=== PATIENT | male | born 1995 | race Caucasian/White ===

== ENCOUNTER 2020-04-21 10:07 | Outpatient (REF) | payer MEDICAID, SELFPAY | END 2020-04-21 10:08 | disposition home or self-care (01) | LOC: HO.LAB 10:07 | PROVIDERS: Visit Provider Internal Medicine | DX: Z20.828 Contact with and (suspected) exposure to other viral communicable diseases (principal) | CPT/HCPCS: 36415; C9803; U0003 ==

== ENCOUNTER → 2020-04-26 10:56 | Outpatient (BNVA) | payer MEDICAID, SELFPAY | PROVIDERS: PCP Internal Medicine; Visit Provider Internal Medicine Cardiovascular Disease | DX: I35.1 Nonrheumatic aortic (valve) insufficiency (principal); Q85.00 Neurofibromatosis, unspecified | CPT/HCPCS: 99212 ==

== ENCOUNTER → 2020-05-25 09:25 | Outpatient (REF) | payer MEDICAID, SELFPAY ==
--- NOTE | 2020-05-25 09:28 | CA_ITS ---
Transthoracic Echocardiogram Patient (Last, First, Middle): Arsh Mulligan, Gender: Male Date of : 1995 Age: 24 Procedure Date: 05/25/2020 Procedure Type: Transthoracic Echocardiogram Location: OP Height: 160.02 cm Weight: 72.58 kg BSA: 1.76 m2 Heart Rate: bpm BP: 130 / 76 mmHg Sharepoint Architect: TRAVIS Pakr MD: Jorge Cuellar MD Symptoms: I35.1 - Nonrheumatic aortic (valve) insufficiency Study Quality: Good ECG Rhythm: Sinus Conclusions: - The left ventricular systolic function is normal. The visually estimated ejection fraction is between 60-65%. - No obvious valvular pathology seen on this study. Findings Left Ventricle Normal left ventricular cavity size. There is normal left ventricular wall thickness. The left ventricular systolic function is normal. The visually estimated ejection fraction is between 60-65%. There is no evidence of regional wall motion abnormalities. Diastolic function is normal for age. Right Ventricle Normal right ventricular cavity size and systolic function. Atria The left atrium is normal in size. The right atrium is normal in size. Aortic Valve There is a normal trileaflet aortic valve. There is no aortic valve stenosis. There is no aortic valve regurgitation. Mitral Valve The mitral valve appears normal. There is no mitral valve regurgitation. There is no mitral valve stenosis. Pulmonic Valve The pulmonic valve was not well visualized. Tricuspid Valve Normal tricuspid valve structure. There is trace tricuspid valve regurgitation. The pulmonary artery systolic pressure is normal. Great Vessels The aortic annulus, sinuses of valsalva, asc aorta, and aortic arch are normal in size. Venous The inferior vena cava is normal in size and collapses greater than 50% with inspiration. Pericardium/Pleural There is no evidence of pericardial effusion. Prior Study Comparison No prior study available for comparison. Recommendations, Care & Conclusions No obvious valvular patholghogy seen on this study. Measurements M-Mode Liner Measurements Normals - Women/Men AOV Cusps: 2.30 1.5-2.6 cm/m2 2D Linear Measurements IVSd: 0.86 0.6-0.9/0.6-1.0 cm LVIDd: 3.42 3.9-5.3/4.2-5.9 cm LVIDd Index: 1.94 2.4-3.2/2.2-3.1 cm/m2 LVIDs: 1.73 2.0-3.6 cm LVPWd: 0.98 0.7-1.1 cm Ao Root: 2.50 2.1-3.5 cm LA Diam: 3.10 2.7-3.8/3.0-4.0 cm LAIDs Index: 1.76 1.5-2.3 cm/m2 LV Mass: 109.58 67-162/88-224 g LV Mass Index: 62.26 43-95/49-115 g/m2 LVOT Diam: 1.90 3.0+(-)1.3 cm 2D Systolic Function EF 4C: 70.10 >55% EF 2C: 36.30 >55% EF BiP: 57.00 >55% Mitral Valve MV Pk E: 0.84 MV PK A: 0.67 MV Decel Time: 169.00 E/A: 1.30 E'Lateral: 12.30 E'Medial: 8.59 E/E' Med: 9.80 E/E' Lat: 6.90 PHT: 50.00 MVA PHT: 4.40 Decel Douglas: 4.99 Aortic Valve AoV Pk Jeff: 1.79 AoV Pk Grad: 13.00 LVOT LVOT Pk Jeff: 1.13 LVOT Mn Jeff: 0.83 LVOT VTI: 0.27 LVOT Pk Grad: 5.00 LVOT Mn Grad: 3.00 LVOT Diam: 1.90 LVOT Area: 2.84 Diastolic Function MV Pk E: 0.84 MV Pk A: 0.67 E/A: 1.30 E'Medial: 8.59 E/E' Med: 9.80 E' Laterial: 12.30 E/E' Lat: 6.90 Tricuspid Valve TR Pk Jeff: 2.66 TR Pk Grad: 28.00 RA Press: 3.00 RVSP: 31.00 Great Vessels Aorta Ao Root-2D: 2.50 2.0-3.7 cm Ao Asc: 2.10 2.1-3.4 cm Ao Arch: 2.50 Pulmonary Valve PV Pk Jeff: 1.82 Peak PV Grad: 13.00 Updated in Other Vendor System with Status of Final Uriah Núñez MD electronically signed on 05/25/2020 2:12:38 PM with status of Final
== END ==
LOC: HO.CARD 09:25
PROVIDERS: PCP Internal Medicine; Visit Provider Internal Medicine Cardiovascular Disease
DX: I35.1 Nonrheumatic aortic (valve) insufficiency (principal)
CPT/HCPCS: 93306

== ENCOUNTER 2020-07-30 12:34 | Emergency (ER) | payer MEDICAID, SELFPAY ==
[2020-07-30 12:40] VITALS: BP 118/59; PULSE 66; RESP 18; TEMP 37.2; O2SAT 99; BMI 29.5
--- NOTE | 2020-07-30 13:49 | ED.GENADULT ---
HPI - General Adult General Chief complaint: General Medical Stated complaint: abscess Time Seen by Provider: 07/30/20 13:47 Source: patient, family (mom) and director of business applications Mode of arrival: ambulatory Limitations: no limitations and language barrier History of Present Illness HPI narrative: 24 yo male with past medical hisotry of neurofibromatosis, migraines, hypertension, ADHD, aortic unsufficinecy here with mom with complaints of left buttocks warmth, erythema and bruising. Denies injury or trauma. Mom tells me she noticed this yesterday. No fevers, chills. Normal behavior from patient per mom. Related Data Home Medications Medication Instructions Recorded Confirmed guanfacine 1 mg tablet 1 mg PO BEDTIME 04/26/20 04/26/20 lisinopril 20 mg tablet 20 mg PO DAILY 04/26/20 04/26/20 nortriptyline 10 mg capsule 10 mg PO DAILY 04/26/20 04/26/20 Previous Rx's Medication Instructions Recorded acetaminophen [Tylenol] 650 mg PO Q6H PRN #20 tab 07/30/20 doxycycline monohydrate 100 mg PO BID #14 tab 07/30/20 Allergies Allergy/AdvReac Type Severity Reaction Status Date / Time No Known Drug Intolerances Allergy Unknown NONE Unverified 01/01/20 17:07 Review of Systems Review of Systems: Yes all other systems are reviewed and are negative Constitutional: Constitutional: Reports no additional constitutional complaints, Denies body ache(s), Denies chills, Denies fever(s), Denies headache(s) and Denies weakness Eyes: Eyes: Reports no additional eye complaints and Denies change in vision ENT: Reports system reviewed and no additional complaints, except as documented, Denies dizziness, Denies headache(s), Denies nasal congestion, Denies nasal discharge and Denies neck pain Cardiovascular: Cardiovascular: Reports no additional cardiovascular complaints, Denies chest pain, Denies leg edema and Denies dyspnea Respiratory: Respiratory: Reports no additional respiratory complaints, Denies cough and Denies dyspnea Gastrointestinal: Gastrointestinal: Reports no additional gastrointestinal complaints, Denies abdominal pain, Denies diarrhea, Denies nausea and Denies vomiting Genitourinary: Genitourinary: Denies urinary incontinence Musculoskeletal: Musculoskeletal: Reports no additional musculoskeletal complaints, Denies back pain, Denies arthralgias, Denies joint swelling, Denies neck pain, Denies numbness and Denies tingling Integumentary/Breasts: Skin/Breast: Reports system reviewed and no additional complaints, except as docu, Reports swelling, Reports erythema and Denies rash Neurologic: Reports system reviewed and no additional complaints, except as documented, Denies Abnormal speech present, Denies dizziness, Denies headache(s), Denies numbness, Denies tingling and Denies weakness PMFSH Past Medical History Attestation statement: The following information was validated with the patient. Source: old records reviewed and nursing notes reviewed Medical History (Updated 07/30/20 @ 14:03 by Lela Nash NP) ADHD Hypertension Migraines Family History Family History Maternal Grandmother Hypertension Diabetes Mother Breast cancer Intellectual disability Social History Social History Smoking Status: Never smoker Advance Directives: Yes Advance Directives Information Provided: Yes Advance Directives on File: No Physical Exam Vital Signs: Vital Signs: Last Vital Signs Temp 98.9 F 07/30/20 12:40 Pulse 66 07/30/20 12:40 Resp 18 07/30/20 12:40 BP 118/59 L 07/30/20 12:40 Pulse Ox 99 07/30/20 12:40 Body Mass Index 29.5 Const: General: cooperative, healthy appearing, comfortable and no acute distress Limitations: no limitations HENMT: Head: Yes normal to inspection Ears: hearing grossly normal bilaterally General nose exam: Normal external nose present Face and sinus: Yes normal facial exam Mouth: Normal oral and palatal mucosa present Throat: Yes posterior oropharynx normal Eyes: General: appearance normal, both eyes and all related structures Pupils: Equal, round and reactive pupils present Neck: Neck: Yes normal visual inspection Chest: Chest palpation & inspection: normal inspection of the chest Resp: Effort & Inspection: normal respiratory effort Auscultation: clear to auscultation bilaterally Cardio: Rate: regular rate Rhythm: regular rhythm Peripheral pulses: Peripheral pulses 2+ throughout GI: Inspection: Yes normal to inspection Palpation (GI): Soft to palpation and nontender Auscultation: normal bowel sounds Back/Spine/Pelvis: Thoracic/Lumbar Spine: thoracic and lumbar spine normal to inspection Skin: Other: To the left buttocks there is a circular area of warmth/redness and swelling with mild eechymosis. No fluctuance or induration. NF sites noted across back and buttocks General skin exam: no rashes or lesions noted Neuro: General: moves all extremities and normal sensation to monofilament Cranial nerves: Yes Equal, round and reactive pupils present Speech: No Abnormal speech present Gait exam (Neuro): Normal gait present Extrem: General: Yes normal to inspection Course Course Course Narrative: 24 yo male here with mom who provides most of the history for the patient here with left buttocks warmth, swelling, erythema x 24 hrs. No fevers, chills. No fluctuance or induration. ?contusion however denies injury but limited historian. Mom is a good historian however and denies. ?early cellulitis, there is a local area but nothing drainable. Will start on course of antibiotics and have mom do supportive care at home including warm compresses. Reviewed worrisome signs.symptoms with patient and when to return to Ed. Comfortable with discharge home. Discharge Plan Discharge Clinical Impression: Abscess Patient Disposition: Home, Self-Care Instructions: Abscess (ED) Additional Instructions: Monitor temperature daily and seek care for fever >100.4F, vomiting 2 or more episodes, increasing swelling or redness Prescriptions: New doxycycline monohydrate 100 mg tablet 100 mg PO BID Qty: 14 RF: 0 acetaminophen [Tylenol] 325 mg tablet 650 mg PO Q6H PRN (Reason: fever or pain) Qty: 20 RF: 0 No Action guanfacine 1 mg tablet 1 mg PO BEDTIME RF: 0 nortriptyline 10 mg capsule 10 mg PO DAILY RF: 0 lisinopril 20 mg tablet 20 mg PO DAILY RF: 0 Referrals: Hank Levy MD [Primary Care Provider] - 2 days Interventions: ED Discharge Assessment Last Done: 07/30/20 13:55 Discharge Date/Time: 07/30/20 13:55 Print Language: Chilean
== END 2020-07-30 13:55 | disposition home or self-care (01) ==
PROVIDERS: Emergency Provider Emergency Medicine Emergency Medical Services; PCP Internal Medicine
DX: L02.31 Cutaneous abscess of buttock (principal); Q85.00 Neurofibromatosis, unspecified
CPT/HCPCS: 99283

== ENCOUNTER 2020-08-13 12:30 | Emergency (ER) | payer MEDICAID, SELFPAY ==
--- NOTE | ~2020-08-13 | XR_ITS ---
EXAMINATION: XR CHEST CLINICAL INFORMATION: Cough COMPARISON: Chest radiograph 08/31/2013 TECHNIQUE: Portable upright AP view of the chest was obtained. FINDINGS: The lungs are clear. The vascularity is normal. There is no airspace consolidation or effusion. The costophrenic sulci are clear. The heart is normal in size. The hilar and mediastinal contours and visualized bony structures are unremarkable. XR/XR chest 1V IMPRESSION: Unremarkable examination.
[2020-08-13 14:17] VITALS: BP 117/72; PULSE 77; RESP 18; TEMP 37.7; O2SAT 98; BMI 31.1
--- NOTE | 2020-08-13 14:39 | ED.URI ---
HPI - URI/Sore Throat General Chief Complaint: Upper Respiratory Symptoms Stated Complaint: cough, headache, fever Time Seen by Provider: 08/13/20 14:38 History of Present Illness HPI Narrative: Patient complains of cough runny nose possible fever for 3 days and a mild sore throat, he is otherwise eating and drinking normally no nausea or vomiting Related Data Home Medications Medication Instructions Recorded Confirmed guanfacine 1 mg tablet 1 mg PO BEDTIME 04/26/20 04/26/20 lisinopril 20 mg tablet 20 mg PO DAILY 04/26/20 04/26/20 nortriptyline 10 mg capsule 10 mg PO DAILY 04/26/20 04/26/20 Previous Rx's Medication Instructions Recorded acetaminophen [Tylenol] 650 mg PO Q6H PRN #20 tab 07/30/20 doxycycline monohydrate 100 mg PO BID #14 tab 07/30/20 amoxicillin 500 mg PO TID 7 Days #21 cap 08/13/20 ibuprofen 600 mg PO Q6H PRN #20 tab 08/13/20 Allergies Allergy/AdvReac Type Severity Reaction Status Date / Time No Known Drug Intolerances Allergy Unknown NONE Verified 08/13/20 14:17 Review of Systems Review of Systems: Positive for fever sore throat and runny nose and Negatives are no chills no dizziness no weakness no fainting no headache no neck pain no chest pain no shortness of breath no abdominal pain no nausea or vomiting no joint swelling no skin rash no numbness or weakness Yes all other systems are reviewed and are negative [facility] Past Medical History Source: nursing notes reviewed Medical History (Updated 08/14/20 @ 00:01 by Raudel James) ADHD Hypertension Migraines Family History Family History Maternal Grandmother Hypertension Diabetes Mother Breast cancer Intellectual disability Social History Social History Smoking Status: Never smoker Advance Directives: No Advance Directives Information Provided: No Physical Exam Vital Signs: Vital Signs: Last Vital Signs Temp 99.9 F 08/13/20 14:17 Pulse 77 08/13/20 14:17 Resp 18 08/13/20 14:17 BP 117/72 08/13/20 14:17 Pulse Ox 98 04/30/21 14:17 Body Mass Index 31.1 General appearance is no acute distress, A&O x3, cooperative The ears are clear with normal tympanic membranes and canals The eyes no redness no discharge The pharynx, moist mucous membranes, no exudate, no tonsillar swelling, no redness no drooling, voice is normal The neck is supple without lymphadenopathy The chest is clear to auscultation bilateral with full symmetric equal breath sounds Heart rate and rhythm regular no murmur Abdomen soft nontender Extremities no rash Neuro no focal motor or sensory deficit, speech both expression and understanding are normal, gait and balance are normal Course Course Course Narrative: Chest x-ray and COVID testing were normal, patient is discharged home and will return if worse MDM - URI/Sore Throat Lab Data Labs: Lab Results 08/13/20 Range/Units 15:18 COVID-19 ([facility]) Negative (Negative) COVID-19 Clin Com See Note Discharge Plan Discharge Clinical Impression: Bronchitis Patient Disposition: Home, Self-Care Additional Instructions: Chest x-ray was normal I will call you with COVID testing is positive at [phone] Return any time any worse condition or any concerns Follow with primary doctor next week if not improved Prescriptions: New ibuprofen 600 mg tablet 600 mg PO Q6H PRN (Reason: fever or pain) Qty: 20 RF: 0 amoxicillin 500 mg capsule 500 mg PO TID 7 Days Qty: 21 RF: 0 No Action doxycycline monohydrate 100 mg tablet 100 mg PO BID Qty: 14 RF: 0 acetaminophen [Tylenol] 325 mg tablet 650 mg PO Q6H PRN (Reason: fever or pain) Qty: 20 RF: 0 guanfacine 1 mg tablet 1 mg PO BEDTIME RF: 0 nortriptyline 10 mg capsule 10 mg PO DAILY RF: 0 lisinopril 20 mg tablet 20 mg PO DAILY RF: 0 Interventions: ED Discharge Assessment Last Done: 08/13/20 15:43 Discharge Date/Time: 08/13/20 15:46
[2020-08-13 15:43] LABS: COVID-19 Test Negative (Negative)
== END 2020-08-13 15:46 | disposition home or self-care (01) ==
PROVIDERS: Physician Assistant Medical; Emergency Provider Emergency Medicine; PCP Internal Medicine
DX: J40 Bronchitis, not specified as acute or chronic (principal); Z20.822 Contact with and (suspected) exposure to COVID-19; R50.9 Fever, unspecified; I10 Essential (primary) hypertension
CPT/HCPCS: 36415; 71045; 87635; 99283

== ENCOUNTER 2020-10-11 15:40 | Outpatient (REF) | payer MEDICAID, SELFPAY ==
--- NOTE | ~2020-10-11 | US_ITS ---
EXAMINATION: ULTRASOUND EXTREMITY NONVASCULAR CLINICAL INFORMATION: Large mass right buttock COMPARISON: None TECHNIQUE: Limited imaging through the right buttock was performed. FINDINGS: Imaging through the right buttock reveals a hard mass right buttock measuring 5.1 x 1.7 x 5.2 cm. It is isoechoic to the adjacent fat and most likely represents lipoma. There is no increased vascularity seen. 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 The lesion is hyperechoic but the margins are ill defined. A MRI with and without fat-sat sequence exam may be beneficial if surgery has to be performed.
== END 2020-10-11 15:41 | disposition home or self-care (01) ==
LOC: HO.US 15:40
PROVIDERS: Visit Provider Emergency Medicine
DX: R23.3 Spontaneous ecchymoses (principal)
CPT/HCPCS: 76882

== ENCOUNTER → 2020-11-01 09:47 | Outpatient (BNVA) | payer MEDICAID, SELFPAY | PROVIDERS: PCP Internal Medicine; Referring Provider Internal Medicine; Visit Provider Internal Medicine Cardiovascular Disease | DX: I35.1 Nonrheumatic aortic (valve) insufficiency (principal); Q85.00 Neurofibromatosis, unspecified | CPT/HCPCS: 99212 ==

== ENCOUNTER 2020-11-09 14:01 | Outpatient (REF) | payer MEDICAID, SELFPAY ==
[2020-11-09 15:16] LABS: MANUAL DIFF FLAG NO
[2020-11-09 15:17] LABS: Basophils Percent Auto 0.4 % (0-2); Eosinophils Absolute Auto 0.1 X10*3/uL (0.0-0.4); Eosinophils Percent Auto 1.8 % (0-4); Hematocrit 45.1 % (42-52); Hemoglobin 15.3 g/dl (14.0-18.0); Imm Gran Abs Auto 0.02 X10*3/uL (0.00-0.03); Imm Gran Pct Auto 0.4 % (0.0-0.4); Lymphocytes Absolute Auto 1.7 X10*3/uL (1.2-4.9); Lymphocytes Percent Auto 30.3 % (20-40); Mean Corpuscular HGB Conc 33.9 g/dl (31.0-36.0); Mean Corpuscular Hemoglobin 27.6 pg (27.0-33.0); Mean Corpuscular Volume 81.3 fL (80-98); Mean Platelet Volume 10.9 fL (9.4-12.4); Monocytes Absolute Auto 0.6 X10*3/uL (0.1-1.2); Monocytes Percent Auto 11.4 % (2-11); Neutrophils Absolute Auto 3.1 X10*3/uL (2.0-8.3); Neutrophils Percent Auto 55.7 % (45-73); Platelet Count 309 X10*3/uL (160-400); Red Blood Count 5.55 X10*6/uL (4.60-5.80); Red Cell Distribution Width 12.5 % (11.0-16.0); White Blood Count 5.5 X10*3/uL (4.8-10.8)
[2020-11-09 16:00] LABS: Albumin Level 4.2 g/dL (3.5-5.0); Anion Gap 14 (12-20); Blood Urea Nitrogen 8 mg/dL (9-16); Calcium 9.2 mg/dL (8.4-10.2); Carbon Dioxide 24 mmol/L (22-29); Chloride 104 mmol/L (96-108); Estimated Glomerular Filt Rate > 60; Magnesium 1.9 mg/dL (1.6-2.6); Phosphorus 4.7 mg/dL (2.7-4.5); Potassium 4.5 mmol/L (3.3-5.1); Sodium 137 mmol/L (135-145)
[2020-11-09 16:41] LABS: Renal w Reflex Lab Use Only Order verified
== END 2020-11-09 14:02 | disposition home or self-care (01) ==
LOC: HO.LAB 14:01
PROVIDERS: Absent Provider Internal Medicine Nephrology; PCP Internal Medicine; Referring Provider Emergency Medicine; Visit Provider Surgery
DX: I10 Essential (primary) hypertension (principal); F90.9 Attention-deficit hyperactivity disorder, unspecified type; Q85.01 Neurofibromatosis, type 1; D17.39 Benign lipomatous neoplasm of skin and subcutaneous tissue of other sites
CPT/HCPCS: 36415; 80051; 82040; 82310; 82565; 83735; 84100; 84520; 85025; 99202

== ENCOUNTER → 2021-01-13 15:00 | Outpatient (BNVA) | payer MEDICAID, SELFPAY | PROVIDERS: PCP Internal Medicine; Referring Provider Internal Medicine; Visit Provider Surgery | DX: Z87.2 Personal history of diseases of the skin and subcutaneous tissue (principal) | CPT/HCPCS: 99212 ==

== ENCOUNTER → 2022-02-09 14:29 | Outpatient (BNVA) | payer MEDICAID, SELFPAY | PROVIDERS: PCP Internal Medicine; Referring Provider Internal Medicine; Visit Provider Internal Medicine Cardiovascular Disease | DX: I35.1 Nonrheumatic aortic (valve) insufficiency (principal); I10 Essential (primary) hypertension | CPT/HCPCS: 93005; 99212 ==

== ENCOUNTER 2022-12-14 09:25 | Outpatient (REF) | payer MEDICAID, SELFPAY ==
[2022-12-14 12:25] LABS: Alanine Aminotransferase 47 U/L (0-40); Albumin Level 4.4 g/dL (3.5-5.0); Alkaline Phosphatase 78 U/L (39-117); Anion Gap 13 (12-20); Aspartate Amino Transferase 23 U/L (5-37); Bilirubin Direct 0.1 mg/dL (0.0-0.5); Bilirubin Total 0.3 mg/dL (0.0-1.0); Blood Urea Nitrogen 9 mg/dL (9-16); Calcium 9.6 mg/dL (8.4-10.2); Carbon Dioxide 24 mmol/L (22-29); Chloride 102 mmol/L (96-108); Cholesterol 205 mg/dL (<200); Estimated Glomerular Filt Rate > 60; Glucose Random 95 mg/dL (60-115); HDL Cholesterol 35 mg/dL (>40); LDL Cholesterol Calculated 116 mg/dL (<100); Potassium 3.9 mmol/L (3.3-5.1); Sodium 135 mmol/L (135-145); TSH reflex Free T4 1.78 uIU/mL (0.32-4.0); Total Protein 7.2 g/dL (6.5-8.0); Triglycerides 272 mg/dL (<150)
== END 2022-12-14 09:26 | disposition home or self-care (01) ==
LOC: HO.HHCL 09:25
PROVIDERS: Visit Provider Internal Medicine
DX: I15.8 Other secondary hypertension (principal)
CPT/HCPCS: 36415; 80048; 80061; 80076; 84443

== ENCOUNTER 2023-02-05 12:28 | Outpatient (AMB) | payer MEDICAID, SELFPAY ==
--- NOTE | 2023-02-05 12:42 | MHC.OFFVIS ---
Intake Vital Signs 02/05/23 12:43 Height 5 ft 2 in Weight 194 lb 0.108 oz BMI 35.5 BP 110/74 Blood Pressure Location Lt brachial Position Sitting Pulse 84 Intake Visit Reasons: 1 year follow up Intake Note: 1 year follow up w/ EKG Film Developer Required: Yes Film Developer Language: Rebeamer Name: Trey [id number] Accompanied by: grandmother Allergies No Known Drug Intolerances Allergy (Unknown, Verified 02/05/23 12:46) NONE Medication List - Last Reconciled 02/05/23 by Jorge Cuellar MD acetaminophen (Tylenol) 650 mg (2 x 325 mg) PO Q6H PRN albuterol sulfate 90 mcg/actuation (ProAir HFA) 2 puffs inhalation Q4-6H PRN guanfacine 2 mg PO ibuprofen 600 mg PO Q6H PRN lisinopril 10 mg PO DAILY HPI HPI Comments History of Present Illness Details Pleasant 27-year-old gentleman here for follow-up. He was previously seen for mild aortic insufficiency seen on echocardiography. He has background of neurofibromatosis. He has hypertension for which he has been on lisinopril with good blood pressure control. Neurofibromatosis can lead to renal artery stenosis and he has been seeing Nephrology and getting follow-up there. He had repeat echocardiogram. This showed normal biventricular function without any significant valvular issues. Previously was noticed to have mild aortic insufficiency. He is denying any chest pain or shortness of breath. He is saying he gets tired and he has gained some weight. He does not exercise regularly. On follow-up he has gained more weight and his mother is concerned that he is tired a lot. We had a detailed discussion about his continued weight gain and the fact that this is affecting him and leading to fatigue. 02/05/2023 he returns for follow-up. Blood pressure is well controlled. Over the last 2 years he has gained approximately 14 lb. He has abdominal obesity. He is saying that he gets tired and short of breath easily. The mother accompanied him as always and added that he does not do any exercise. [facility] Medical History (Updated 02/09/22 @ 15:10 by Jorge Cuellar MD) Migraines ADHD Hypertension Surgical History History of eye surgery History of tonsillectomy and adenoidectomy History of excision of mass Family History Maternal Grandmother Hypertension Diabetes Mother Breast cancer Intellectual disability Social History Alcohol intake: never Patient Tobacco Use Status: Never used Tobacco Review of Systems Const Denies weakness ENT Denies dizziness Card Denies chest pain, Denies chest pain with activity, Denies syncope, Denies rapid heart rate, Denies pedal edema, Denies edema, Denies leg edema, Denies lightheadedness, Denies palpitations, Denies dyspnea, Denies dyspnea on exertion and Denies orthopnea Resp Denies cough, Denies dyspnea and Denies dyspnea on exertion GI Denies hematochezia and Denies change in stool character Musc Denies abnormal gait, Denies muscle cramps, Denies muscle weakness, Denies numbness, Denies radiating pain into limb and Denies tingling Neuro Denies abnormal gait, Denies dizziness, Denies syncope, Denies numbness, Denies tingling and Denies weakness Endo Denies palpitations Physical Exam Vital Signs: Last Vital Signs Pulse 84 02/05/23 12:43 BP 110/74 02/05/23 12:43 BMI result Body Mass Index 35.5 GENERAL APPEARANCE: in no acute distress, well developed, well nourished. NECK/THYROID: no carotid bruit, no jugular venous distention. SKIN: Neurofibromas noticed. HEART: no murmurs, regular rate and rhythm, S1, S2 normal. LUNGS: clear to auscultation bilaterally. ABDOMEN: normal, bowel sounds present, soft, nontender, nondistended. EXTREMITIES: no clubbing, cyanosis, or edema. PERIPHERAL PULSES: equal. NEUROLOGIC: nonfocal, alert and oriented. PSYCH: mood/affect full range. Office Procedures EKG Details: Sinus rhythm 84 beats per minute, normal axis normal ECG, QTC 378 milliseconds. [id number], Complete Assessment & Plan Assessment & Plan (1) Essential hypertension: Code(s): I10 - Essential (primary) hypertension Plan Pleasant 27 year gentleman with hypertension and history of aortic insufficiency. He also has neurofibromatosis. Previous echocardiogram has not shown any significant aortic insufficiency. Blood pressure is well controlled. He is complaining of fatigue and shortness of breath. He has gained weight over the last 2 years and has been increasingly more sedentary. I have explained to Arsh that he needs to start exercising regularly because inactivity will make his muscles more inefficient and will have worsening fatigue. He will see us back in 6 months hopefully with some weight loss. Thank you for allowing me to participate in the care of your patient. Please feel free to contact me if you have any questions. Coding Level of Care Code Est Pt Level 3 (78396) Diagnoses Essential hypertension I10 CPT Codes EKG - CPT: 19495-[id number], Complete ([id number])
[2023-02-05 12:43] VITALS: BP 110/74; PULSE 84; BMI 35.5
== END 2023-02-05 13:06 | disposition home or self-care (01) ==
PROVIDERS: PCP Internal Medicine; Visit Provider Internal Medicine Cardiovascular Disease
DX: I10 Essential (primary) hypertension (principal)
CPT/HCPCS: 93010; 99213

== ENCOUNTER → 2023-02-05 12:28 | Outpatient (BNVA) | payer MEDICAID, SELFPAY | PROVIDERS: PCP Internal Medicine; Visit Provider Internal Medicine Cardiovascular Disease | DX: I10 Essential (primary) hypertension (principal) | CPT/HCPCS: 93005; 99212 ==

== ENCOUNTER 2023-08-13 13:09 | Outpatient (AMB) | payer MEDICAID, SELFPAY ==
[2023-08-13 13:11] VITALS: BP 120/62; PULSE 99; BMI 36.9
--- NOTE | 2023-08-13 13:11 | A.OFFVIS_ITS ---
Vital Signs 08/13/23 13:11 Height 5 ft 2 in Weight 201 lb 8.04 oz BMI 36.9 BP 120/62 Blood Pressure Location Lt brachial Position Sitting Pulse 99 Pulse Source Pulse Oximeter Intake Visit Reasons: 1 year fu (changed from 3:30) Intake Note: pt states that he its doing fine. [employer] Required: Yes [employer] Name: [id number] Accompanied by: Self / Same As Patient Allergies No Known Drug Intolerances Allergy (Unknown, Verified 02/05/23 12:46) NONE Medication List - Last Reconciled 08/13/23 by Jorge Cuellar MD acetaminophen (Tylenol) 650 mg (2 x 325 mg) PO Q6H PRN albuterol sulfate 90 mcg/actuation (ProAir HFA) 2 puffs inhalation Q4-6H PRN guanfacine 2 mg PO ibuprofen 600 mg PO Q6H PRN lisinopril 10 mg PO DAILY HPI Comments Details: Pleasant 27-year-old gentleman here for follow-up. He was previously seen for mild aortic insufficiency seen on echocardiography. He has background of neurofibromatosis. He has hypertension for which he has been on lisinopril with good blood pressure control. Neurofibromatosis can lead to renal artery stenosis and he has been seeing Nephrology and getting follow-up there. He had repeat echocardiogram. This showed normal biventricular function without any significant valvular issues. Previously was noticed to have mild aortic insufficiency. He is denying any chest pain or shortness of breath. He is saying he gets tired and he has gained some weight. He does not exercise regularly. On follow-up he has gained more weight and his mother is concerned that he is tired a lot. We had a detailed discussion about his continued weight gain and the fact that this is affecting him and leading to fatigue. 02/05/2023 he returns for follow-up. Blood pressure is well controlled. Over the last 2 years he has gained approximately 14 lb. He has abdominal obesity. He is saying that he gets tired and short of breath easily. The mother accompanied him as always and added that he does not do any exercise. 08/13/2023: He returns for follow-up. No complaints on follow-up. Blood pressure is well controlled. He has gained more weight and he is 201 lb with a BMI of 36.9. [facility] Medical History (Updated 02/09/22 @ 15:10 by Jorge Cuellar MD) Migraines ADHD Hypertension Surgical History History of eye surgery History of tonsillectomy and adenoidectomy History of excision of mass Family History Maternal Grandmother Hypertension Diabetes Mother Breast cancer Intellectual disability Social History Alcohol intake: never Patient Tobacco Use Status: Never used Tobacco Review of Systems Const Denies chills, Denies fatigue, Denies fever(s), Denies frequent falls, Denies weakness, Denies weight gain and Denies weight loss ENT Denies dizziness Card Denies chest pain, Denies leg edema, Denies lightheadedness, Denies palpitations, Denies dyspnea and Denies dyspnea on exertion Resp Denies cough, Denies dyspnea and Denies dyspnea on exertion GI Denies hematochezia Musc Denies abnormal gait, Denies muscle weakness, Denies numbness, Denies radiating pain into limb and Denies tingling Neuro Denies abnormal gait, Denies dizziness, Denies frequent falls, Denies numbness, Denies tingling and Denies weakness Endo Denies fatigue and Denies palpitations Physical Exam Vital Signs: Last Vital Signs Pulse 99 08/13/23 13:11 BP 120/62 08/13/23 13:11 BMI result Body Mass Index 36.9 GENERAL APPEARANCE: in no acute distress, well developed, overweight. NECK/THYROID: no carotid bruit, no jugular venous distention. SKIN: Neurofibromas noticed. HEART: no murmurs, regular rate and rhythm, S1, S2 normal. LUNGS: clear to auscultation bilaterally. ABDOMEN: Soft, nontender. Abdominal obesity. EXTREMITIES: no clubbing, cyanosis, or edema. PERIPHERAL PULSES: equal. NEUROLOGIC: nonfocal, alert and oriented. PSYCH: mood/affect full range. Assessment & Plan Assessment & Plan (1) Essential hypertension: Code(s): I10 - Essential (primary) hypertension Category: Medical Plan Pleasant 27 year gentleman with hypertension and history of aortic insufficiency. He also has neurofibromatosis. Previous echocardiogram has not shown any significant aortic insufficiency. Blood pressure is well controlled. He is overweight and we discussed last time about exercise and weight loss. On follow-up he has gained 7 more lb. I have explained to him that he needs to ta ke control of his weight gain otherwise it may become quite challenging for him to lose weight down the line. I have advised him to start exercising regularly. He will come back in 6 months for follow-up. Thank you for allowing me to participate in the care of your patient. Please feel free to contact me if you have any questions. Coding Level of Care Code Est Pt Level 3 (61181) Diagnoses Essential hypertension I10
== END 2023-08-13 13:36 | disposition home or self-care (01) ==
PROVIDERS: PCP Internal Medicine; Referring Provider Internal Medicine; Visit Provider Internal Medicine Cardiovascular Disease
DX: I10 Essential (primary) hypertension (principal)
CPT/HCPCS: 99213

== ENCOUNTER → 2023-08-13 13:09 | Outpatient (BNVA) | payer MEDICAID, SELFPAY | PROVIDERS: PCP Internal Medicine; Visit Provider Internal Medicine Cardiovascular Disease | DX: I10 Essential (primary) hypertension (principal) | CPT/HCPCS: 99212 ==

== ENCOUNTER 2023-09-19 14:41 | Emergency (ER) | payer MEDICAID, SELFPAY ==
--- NOTE | ~2023-09-19 | XR_ITS ---
EXAMINATION: XR CHEST CLINICAL INFORMATION: Chest pain. COMPARISON: Chest x-ray August 13, 2020 TECHNIQUE: 2 views of the chest were obtained. FINDINGS: No significant abnormality is noted involving the heart, lungs, mediastinum, bony thorax or soft tissues. XR/XR chest 2V IMPRESSION: Unremarkable examination.
--- NOTE | 2023-09-19 14:43 | ECG_ITS ---
Test Reason : CHEST PAIN Blood Pressure : / mmHG Vent. Rate : 090 BPM Atrial Rate : 090 BPM P-R Int : 146 ms QRS Dur : 088 ms QT Int : 314 ms P-R-T Axes : -10 059 -25 degrees QTc Int : 384 ms Normal sinus rhythm T wave abnormality, consider inferior ischemia Abnormal ECG When compared with ECG of 04-AUG-2004 12:56, T wave inversion in inferior leads Referred By: Generic ED Physician Electronically Signed By:MICHEAL WHITLOCK MD
[2023-09-19 14:48] VITALS: BP 132/70; PULSE 93; RESP 16; TEMP 36.6; O2SAT 97; BMI 35.2
--- NOTE | 2023-09-19 14:48 | ED_ITS ---
HPI - General Adult General Chief complaint: Chest Pain Stated complaint: CP Time Seen by Provider: 09/19/23 17:07 Source: patient Mode of arrival: ambulatory Limitations: no limitations History of Present Illness ED Provider: Dr. Gerard Coffman HPI narrative: 27-year-old male past medical history significant for hypertension neurofibromatosis aortic insufficiency presents emergency room complaining of chest pain and dizziness just prior to coming to the ER. Related Data Home Medications ?Medication ?Instructions ?Recorded ?Confirmed albuterol sulfate 90 mcg/actuation 2 puff inhalation Q4-6H PRN 02/09/22 08/13/23 aerosol inhaler (ProAir HFA) lisinopril 10 mg tablet 10 mg PO DAILY 02/09/22 08/13/23 guanfacine 2 mg tablet 2 mg PO 02/05/23 08/13/23 Previous Rx's ?Medication ?Instructions ?Recorded acetaminophen 325 mg tablet 650 mg (2 x 325 mg) PO Q6H PRN 07/30/20 (Tylenol) fever or pain #20 tabs ibuprofen 600 mg tablet 600 mg PO Q6H PRN fever or pain 08/13/20 #20 tabs Allergies Allergy/AdvReac Type Severity Reaction Status Date / Time No Known Drug Intolerances Allergy Unknown NONE Verified 09/19/23 14:52 Review of Systems 2 Review of Systems: Review of systems: General: Patient denies any fever chills recent illness or falls Musculoskeletal: Denies back pain or body aches or other injuries HEENT: denies headache, runny nose, ear pain Respiratory: denies shortness of breath, cough Cardiovascular: no chest pain or palpitations : denies dysuria, frequency Abdomen: no nausea vomiting denies abdominal pain Extremities: no swelling, no pain Skin: no diaphoresis Yes all other systems are reviewed and are negative [facility] Past Medical History Medical History (Updated 09/19/23 @ 17:33 by Gerard Coffman DO) Migraines ADHD Hypertension Surgical History History of eye surgery History of tonsillectomy and adenoidectomy History of excision of mass Family History Family History Maternal Grandmother Hypertension Diabetes Mother Breast cancer Intellectual disability Social History Social History Alcohol intake: never Patient Tobacco Use Status: Never used Tobacco Physical Exam ED Vital Signs: Vital Signs - 24 hr 09/19/23 14:48 09/19/23 16:59 Temperature 97.8 F 98.4 F Pulse Rate 93 80 Respiratory Rate 16 20 Blood Pressure 132/70 136/81 Pulse Oximetry 97 96 Oxygen Delivery Method Room Air Room Air BMI result Body Mass Index 35.2 General: Well-appearing well-nourished in no signs of distress HEENT: Normocephalic atraumatic Neck: No signs of JVD, no masses no tenderness or lymphadenopathy Cardiovascular: Regular rate and rhythm Respiratory: Clear to auscultation bilaterally Abdomen: Soft nontender no masses Extremities: Normal pedal pulses no signs of edema Skin: Dry warm no rashes Back: No tenderness full ROM Course Course Course Narrative: This is a rapid medical exam performed by Morena Martinez NP: Additional HPI, ROS, PE not included below will be deferred to primary provider. Patient is a 27-year-old Nigerien speaking male with history of HTN, neurofibromatosis, aortic insufficiency presenting to the ED with complaint of chest pain and tightness which began just prior to arrival. Reports some dizziness, denies dyspnea, nausea, vomiting. Plan; EKG, labs, cxr Reevaluation(s) Reevaluation #1: 1735 patient has been pain-free for 2 hours I will give repeat troponin at this time labs are otherwise unremarkable Medical Decision Making Medical Decision Making MDM Narrative: I will check labs and x-ray will get a repeat troponin Differential Diagnosis Differential Diagnoses: The differential diagnosis associated with the presentation includes ACS pneumonia PE is less likely as patient is not tachycardic or hypoxic Admission/Observation Consideration of admission/observation: Escalation of care including admission/observation considered Lab Data [facility] Lab Attestation statement: I reviewed the patient's lab results. 09/19/23 14:58 09/19/23 14:58 Labs: Lab Results 09/19/23 Range/Units 14:58 WBC 7.5 (4.8-10.8) X10*3/uL RBC 5.98 H (4.60-5.80) X10*6/uL Hgb 16.8 (14.0-18.0) g/dl Hct 47.5 (42.0-52.0) % MCV 79.4 L (80.0-98.0) fL MCH 28.1 (27.0-33.0) pg MCHC 35.4 (31.0-36.0) g/dl RDW 12.5 (11.0-16.0) % Plt Count 325 (160-400) X10*3/uL MPV 10.7 (9.4-12.4) fL Immature Gran % (Auto) 0.4 (0.0-0.4) % Neut % (Auto) 57.1 (45-73) % Lymph % (Auto) 29.6 (20-40) % [place] % (Auto) 10.5 (2-11) % Eos % (Auto) 1.6 (0-4) % Baso % (Auto) 0.8 (0-2) % Lymph # (Auto) 2.2 (1.2-4.9) X10*3/uL [place] # (Auto) 0.8 (0.1-1.2) X10*3/uL Eos # (Auto) 0.1 (0.0-0.4) X10*3/uL Baso # (Auto) 0.1 (0.0-0.2) X10*3/uL Abs Immat Gran (auto) 0.03 (0.00-0.03) X10*3/uL Absolute Neuts (auto) 4.3 (2.0-8.3) x10*3/uL Absolute Nucleated RBC 0.000 (0.0-0.012) X10*3/uL Nucleated RBC % (auto) 0.0 (0.0-0.2) /100WBC PT 12.1 (11.1-13.3) SEC INR 1.0 (0.9-1.1) Sodium 136 (135-145) mmol/L Potassium 4.0 (3.3-5.1) mmol/L Chloride 104 (96-108) mmol/L Carbon Dioxide 24 (22-29) mmol/L Anion Gap 12 (12-20) BUN 8 L (9-16) mg/dL Creatinine 0.78 (0.5-1.4) mg/dL Estim Creat Clear Calc 147.6 Estimated GFR > 60 Random Glucose 83 (60-115) mg/dL Calcium 9.8 (8.4-10.2) mg/dL Total Bilirubin 0.4 (0.0-1.0) mg/dL AST 60 H (5-37) U/L ALT 66 H (0-40) U/L Alkaline Phosphatase 76 (39-117) U/L Troponin I High Sens 8.7 (<3.5-35.0) ng/L Total Protein 7.2 (6.5-8.0) g/dL Albumin 4.4 (3.5-5.0) g/dL Scores Heart Score History: -0- slightly suspicious ECG: -0- normal Age: -0- < or = 45 Risk factory: -0- no risk factors known Troponin: -0- < or = normal limit Score: 0 Risk: 1.7% Discharge Plan Discharge Clinical Impression: Chest pain Patient Disposition: Home, Self-Care Instructions: Chest Pain (DC) Additional Instructions: You were seen today in the emergency department for chest pain. You had an x-ray and labs were drawn unremarkable. If you have any worsening pain or any other concerns please return to the emergency department. Prescriptions: No Action acetaminophen [Tylenol] 325 mg tablet 650 mg PO Q6H PRN (Reason: fever or pain) Qty: 20 0RF ibuprofen 600 mg tablet 600 mg PO Q6H PRN (Reason: fever or pain) Qty: 20 0RF lisinopril 10 mg tablet 10 mg PO DAILY albuterol sulfate [ProAir HFA] 90 mcg/actuation HFA aerosol inhaler 2 puff inhalation Q4-6H PRN guanfacine 2 mg tablet 2 mg PO Print Language: Nigerien
[2023-09-19 15:11] LABS: MANUAL DIFF FLAG NO
[2023-09-19 15:13] LABS: Basophils Absolute Auto 0.1 X10*3/uL (0.0-0.2); Basophils Percent Auto 0.8 % (0-2); Eosinophils Absolute Auto 0.1 X10*3/uL (0.0-0.4); Eosinophils Percent Auto 1.6 % (0-4); Hematocrit 47.5 % (42.0-52.0); Hemoglobin 16.8 g/dl (14.0-18.0); Imm Gran Abs Auto 0.03 X10*3/uL (0.00-0.03); Imm Gran Pct Auto 0.4 % (0.0-0.4); Lymphocytes Absolute Auto 2.2 X10*3/uL (1.2-4.9); Lymphocytes Percent Auto 29.6 % (20-40); Mean Corpuscular HGB Conc 35.4 g/dl (31.0-36.0); Mean Corpuscular Hemoglobin 28.1 pg (27.0-33.0); Mean Corpuscular Volume 79.4 fL (80.0-98.0); Mean Platelet Volume 10.7 fL (9.4-12.4); Monocytes Absolute Auto 0.8 X10*3/uL (0.1-1.2); Monocytes Percent Auto 10.5 % (2-11); Neutrophils Absolute Auto 4.3 x10*3/uL (2.0-8.3); Neutrophils Percent Auto 57.1 % (45-73); Platelet Count 325 X10*3/uL (160-400); Red Blood Count 5.98 X10*6/uL (4.60-5.80); Red Cell Distribution Width 12.5 % (11.0-16.0); White Blood Count 7.5 X10*3/uL (4.8-10.8)
[2023-09-19 15:19] LABS: Prothrombin Time 12.1 SEC (11.1-13.3)
[2023-09-19 15:27] LABS: Alanine Aminotransferase 66 U/L (0-40); Albumin Level 4.4 g/dL (3.5-5.0); Alkaline Phosphatase 76 U/L (39-117); Anion Gap 12 (12-20); Aspartate Amino Transferase 60 U/L (5-37); Bilirubin Total 0.4 mg/dL (0.0-1.0); Blood Urea Nitrogen 8 mg/dL (9-16); Calcium 9.8 mg/dL (8.4-10.2); Carbon Dioxide 24 mmol/L (22-29); Chloride 104 mmol/L (96-108); Creatinine Clr Calc Pharmacy 147.6; Estimated Glomerular Filt Rate > 60; Glucose Random 83 mg/dL (60-115); Sodium 136 mmol/L (135-145); Total Protein 7.2 g/dL (6.5-8.0)
[2023-09-19 15:35] LABS: Troponin-I High Sensitivity 8.7 ng/L (<3.5-35.0)
[2023-09-19 16:59] VITALS: BP 136/81; PULSE 80; RESP 20; TEMP 36.9; O2SAT 96
--- NOTE | 2023-09-19 17:24 | PC.NURSE ---
a&ox4. vss and up to date. nsr on the youth nutritional monitor. pt presents to ED w/ right sided chest pain that occurred s/p working out 3 hours prior. pt verbalizes lifting heavy weights with his upper extremities when pain was a sudden onset. nonradiating. pt also verbalizes sob/dizziness. no sob/wob noted. respirations even/unlabored. pt rating pain a 3/10. plan of care ongoing. call marr placed within reach.
--- NOTE | 2023-09-19 18:11 | PC.NURSE ---
repeat troponin obtained/sent to lab by tech.
[2023-09-19 18:29] LABS: Troponin-I High Sensitivity 10.9 ng/L (<3.5-35.0)
[2023-09-19 18:35] VITALS: BP 136/81; PULSE 80; RESP 20; TEMP 36.9; O2SAT 96
== END 2023-09-19 18:35 | disposition home or self-care (01) ==
PROVIDERS: Registered Nurse Emergency; Emergency Provider Student in an Organized Health Care Education/Training Program
DX: R07.9 Chest pain, unspecified (principal); R42 Dizziness and giddiness; I10 Essential (primary) hypertension
CPT/HCPCS: 36415; 71046; 80053; 84484; 85025; 85610; 93005; 99284; 99285

== ENCOUNTER → 2023-09-19 14:43 | Outpatient (BNV) | payer MEDICAID, SELFPAY | PROVIDERS: Emergency Provider Student in an Organized Health Care Education/Training Program; Visit Provider Internal Medicine Cardiovascular Disease | DX: R94.31 Abnormal electrocardiogram [ECG] [EKG] (principal) | CPT/HCPCS: 93010 ==

== ENCOUNTER 2024-02-20 12:28 | Outpatient (AMB) | payer MEDICAID, SELFPAY ==
[2024-02-20 12:48] VITALS: BP 110/60; PULSE 88; BMI 33.7
--- NOTE | 2024-02-20 12:48 | MHC.OFFVIS ---
Vital Signs 02/20/24 12:48 Height 5 ft 4 in Weight 196 lb 3.382 oz BMI 33.7 BP 110/60 Blood Pressure Location Lt brachial Position Sitting Pulse 88 Pulse Source Pulse Oximeter Intake Visit Reasons: 6 mth f/up [employer] Required: Yes [employer] Name: [id number] Allergies No Known Drug Intolerances Allergy (Unknown, Verified 09/19/23 14:52) NONE Medication List - Last Reconciled 02/20/24 by Jorge Cuellar MD acetaminophen (Tylenol) 650 mg (2 x 325 mg) PO Q6H PRN albuterol sulfate 90 mcg/actuation (ProAir HFA) 2 puffs inhalation Q4-6H PRN guanfacine 2 mg PO ibuprofen 600 mg PO Q6H PRN lisinopril 10 mg PO DAILY HPI Comments Details: Pleasant 28-year-old gentleman here for follow-up. He was previously seen for mild aortic insufficiency seen on echocardiography. He has background of neurofibromatosis. He has hypertension for which he has been on lisinopril with good blood pressure control. Neurofibromatosis can lead to renal artery stenosis and he has been seeing Nephrology and getting follow-up there. He had repeat echocardiogram. This showed normal biventricular function without any significant valvular issues. Previously was noticed to have mild aortic insufficiency. He is denying any chest pain or shortness of breath. He is saying he gets tired and he has gained some weight. He does not exercise regularly. On follow-up he has gained more weight and his mother is concerned that he is tired a lot. We had a detailed discussion about his continued weight gain and the fact that this is affecting him and leading to fatigue. 02/05/2023 he returns for follow-up. Blood pressure is well controlled. Over the last 2 years he has gained approximately 14 lb. He has abdominal obesity. He is saying that he gets tired and short of breath easily. The mother accompanied him as always and added that he does not do any exercise. 08/13/2023: He returns for follow-up. No complaints on follow-up. Blood pressure is well controlled. He has gained more weight and he is 201 lb with a BMI of 36.9. 02/20/24: He is here for follow-up. Clinically stable. He is saying that he is going to gym and trying to exercise. He is continues to be overweight. His weight is 196 lb which is lower than before though because last time he was 201 lb. [facility] Medical History (Updated 09/20/23 @ 00:00 by Background Dadee dee) Migraines ADHD Hypertension Surgical History History of eye surgery History of tonsillectomy and adenoidectomy History of excision of mass Family History Maternal Grandmother Hypertension Diabetes Mother Breast cancer Intellectual disability Social History Alcohol intake: never Patient Tobacco Use Status: Never used Tobacco Review of Systems Const Denies weakness ENT Denies dizziness Card Denies chest pain, Denies chest pain with activity, Denies syncope, Denies rapid heart rate, Denies pedal edema, Denies edema, Denies leg edema, Denies lightheadedness, Denies palpitations, Denies dyspnea, Denies dyspnea on exertion and Denies orthopnea Resp Denies cough, Denies dyspnea and Denies dyspnea on exertion GI Denies hematochezia and Denies change in stool character Musc Denies abnormal gait, Denies muscle cramps, Denies muscle weakness, Denies numbness, Denies radiating pain into limb and Denies tingling Neuro Denies abnormal gait, Denies dizziness, Denies syncope, Denies numbness, Denies tingling and Denies weakness Endo Denies palpitations Physical Exam Vital Signs: Last Vital Signs Pulse 88 02/20/24 12:48 BP 110/60 02/20/24 12:48 BMI result Body Mass Index 33.7 GENERAL APPEARANCE: in no acute distress, well developed, overweight. NECK/THYROID: no carotid bruit, no jugular venous distention. SKIN: Neurofibromas noticed. HEART: no murmurs, regular rate and rhythm, S1, S2 normal. LUNGS: clear to auscultation bilaterally. ABDOMEN: Soft, nontender. Abdominal obesity. EXTREMITIES: no clubbing, cyanosis, or edema. PERIPHERAL PULSES: equal. NEUROLOGIC: nonfocal, alert and oriented. PSYCH: mood/affect full range. Assessment & Plan Assessment & Plan (1) Essential hypertension: Code(s): I10 - Essential (primary) hypertension Category: Medical (2) Aortic insufficiency: Code(s): I35.1 - Nonrheumatic aortic (valve) insufficiency Category: Medical Plan Pleasant 28 year gentleman with hypertension and history of aortic insufficiency. He also has neurofibromatosis. Previous echocardiogram has not shown any significant aortic insufficiency. Blood pressure is well controlled. He is overweight and we discussed l about exercise and weight loss. He is going to gym and he has lost approximately 5 lb compared to last visit. I have advised him to continue the exercise. His blood pressure is well controlled. He does not have any significant aortic insufficiency and does not require frequent echocardiography. Thank you for allowing me to participate in the care of your patient. Please feel free to contact me if you have any questions. Coding Level of Care Code Est Pt Level 3 (98296) Diagnoses Essential hypertension I10 Aortic insufficiency I35.1
== END 2024-02-20 13:07 | disposition home or self-care (01) ==
LOC: HO.HCS 12:30
PROVIDERS: PCP Internal Medicine; Visit Provider Internal Medicine Cardiovascular Disease
DX: I10 Essential (primary) hypertension (principal); I35.1 Nonrheumatic aortic (valve) insufficiency
CPT/HCPCS: 99213

== ENCOUNTER → 2024-02-20 12:28 | Outpatient (BNVA) | payer MEDICAID, SELFPAY | PROVIDERS: PCP Internal Medicine; Visit Provider Internal Medicine Cardiovascular Disease | DX: I10 Essential (primary) hypertension (principal); I35.1 Nonrheumatic aortic (valve) insufficiency; E66.3 Overweight; Z68.33 Body mass index [BMI] 33.0-33.9, adult; Z79.899 Other long term (current) drug therapy | CPT/HCPCS: 99212 ==

== ENCOUNTER 2024-06-08 15:15 | Emergency (ER) | payer MEDICAID, SELFPAY ==
--- NOTE | ~2024-06-08 | XR_ITS ---
CLINICAL HISTORY: cough, fevers 2 view chest x-ray Comparison: CR/SR - XR CHEST 2V - 09/19/23 15:07 EDT CR - XR CHEST 1V - 08/13/20 14:35 EDT Findings: Mild patchy bilateral perihilar and basilar opacity. Heart size is normal. No acute fracture. IMPRESSION: Mild atypical pneumonia. This document has been electronically signed by: Jac Lee MD on 06/08/2024 16:26:27
[2024-06-08 15:40] VITALS: BP 97/53; PULSE 66; RESP 18; TEMP 36.6; O2SAT 96; BMI 34.7
--- NOTE | 2024-06-08 15:40 | ED.URI ---
HPI - URI/Sore Throat General Chief Complaint: General Medical Stated Complaint: ? flu Time Seen by Provider: 06/08/24 16:28 Source: patient Mode of arrival: ambulatory Limitations: no limitations History of Present Illness ED Provider: stephanie campuzaon NP HPI Narrative: Patient is a 28-year-old male with history of asthma who presents emergency department with mother and grandmother for evaluation. Reports flu-like symptoms for 1 week, diagnosed with flu 3 days ago. started on Tamiflu. States that he has been staying hydrated, is not eating solids because he does not have an appetite or taste bad, he continues to have a nonproductive cough, feels fatigued and having fevers up to 100.5. Denies headache, dizziness, neck pain, neck stiffness, chest pain, shortness of breath, difficulty breathing, nausea, vomiting, abdominal pain, numbness or tingling of the extremities, genitourinary symptoms. Related Data Home Medications ?Medication ?Instructions ?Recorded ?Confirmed albuterol sulfate 90 mcg/actuation 2 puff inhalation Q4-6H PRN 02/09/22 02/20/24 aerosol inhaler (ProAir HFA) lisinopril 10 mg tablet 10 mg PO DAILY 02/09/22 02/20/24 guanfacine 2 mg tablet 2 mg PO 02/05/23 02/20/24 Previous Rx's ?Medication ?Instructions ?Recorded acetaminophen 325 mg tablet 650 mg (2 x 325 mg) PO Q6H PRN 07/30/20 (Tylenol) fever or pain #20 tabs ibuprofen 600 mg tablet 600 mg PO Q6H PRN fever or pain 08/13/20 #20 tabs amoxicillin 500 mg tablet 1,000 mg (2 x 500 mg) PO TID 5 06/08/24 days #30 tabs Allergies Allergy/AdvReac Type Severity Reaction Status Date / Time No Known Drug Intolerances Allergy Unknown NONE Verified 06/08/24 15:43 Review of Systems Review of Systems: Yes all other systems are reviewed and are negative PMFSH Past Medical History Attestation statement: The following information was validated with the patient. Source: old records reviewed Medical History Migraines ADHD Hypertension Surgical History History of eye surgery History of tonsillectomy and adenoidectomy History of excision of mass Family History Family History Maternal Grandmother Hypertension Diabetes Mother Breast cancer Intellectual disability Social History Social History Alcohol intake: never Patient Tobacco Use Status: Never used Tobacco Advance Directives: No Advance Directives Information Provided: No Do you have a plan to hurt others: No Plan Physical Exam Vital Signs: Vital Signs: Last Vital Signs Temp 97.8 F 06/08/24 15:40 Pulse 66 06/08/24 15:40 Resp 18 06/08/24 15:40 BP 97/53 L 06/08/24 15:40 Pulse Ox 96 06/08/24 15:40 O2 Del Method Room Air 06/08/24 15:40 BMI result Body Mass Index 34.7 Appearance: Alert.?Oriented to person, place and time. No acute distress.?Normal affect. Eyes: Pupils equal, round and reactive to light.? ENT: TM normal bilaterally. Pharynx normal.?? Neck: Normal inspection.? Neck supple.??No cervical adenopathy CVS: Heart sounds normal. Normal heart rate and rhythm.? Pulses normal.?? Respiratory: No respiratory distress.? Lung sounds clear to auscultation bilaterally?? Abdomen: Soft and non-tender. Normoactive bowel sounds. Skin: Skin warm and dry.? Normal skin color.? ? Extremities: No lower extremity edema.? Neuro: Moves all extremities spontaneously. Sensation intact bilaterally. No motor deficits. Ambulates with normal steady gait. Medications Administered Discontinued Medications Generic Name Dose Route Start Last Admin Trade Name Freq PRN Reason Stop Dose Admin Amoxicillin 1,000 mg 06/08/24 16:50 06/08/24 17:03 Amoxicillin 500 Mg Capsule PO 06/08/24 16:51 1,000 mg ONCE ONE Administration Medical Decision Making Medical Decision Making [facility] Narrative: Patient is a 28-year-old male with past medical history of asthma, presenting for evaluation of viral type symptoms in the setting of recent influenza infection. Here with mother and grandmother who both feel strongly that there must be some alternative reason for his symptoms. They do not believe that he would still be ill with flu symptoms at this time. I discussed that this would be expected during this stage of illness, and he should hopefully begin to feel better within the next few days. Advised that despite his lack of appetite, it is very important to encourage him to eat small frequent meals throughout the day so that he may regain his energy and be sure that he is staying well hydrated. Repeat viral serologies were obtained to exclude alternative viral illness in addition to CXR which reveals findings of mild atypical pneumonia. Well-appearing, nontoxic, afebrile, no tachycardia or tachypnea/hypoxia. Speaking clear full sentences, ambulatory with steady gait. Discussed conservative treatment including rest, hydration, Tylenol/ibuprofen as needed for fever and body aches, saline nasal spray, humidifier, afcr-irk-[id number] cold medication. Advised to follow-up with primary care provider as needed, discussed reasons to return back to the emergency department. All questions were answered. Patient discharged home in stable condition. Differential Diagnosis Differential Diagnoses: The differential diagnosis associated with the presentation includes ( See narrative above) Admission/Observation Consideration of admission/observation: Escalation of care including admission/observation considered ( see narrative above) Lab Data MDM Lab Attestation statement: I reviewed the patient's lab results. ( see narrative above) Independent Interpretation I performed an independent interpretation of an: Plain X-Ray (See narrative above) Radiology Impression Discussion of test interpretation with radiology: I have reviewed the radiologist's reading. Radiologist Impression: 2 view chest x-ray Comparison: CR/SR - XR CHEST 2V - 09/19/23 15:07 EDT CR - XR CHEST 1V - 08/13/20 14:35 EDT Findings: Mild patchy bilateral perihilar and basilar opacity. Heart size is normal. No acute fracture. IMPRESSION: Mild atypical pneumonia. Independent Historian Clinical information obtained from an independent historian. History obtained from or confirmed by: Parent External Record Review External record reviewed: Outpatient record Prescription Management I considered prescription management with: Pain Medication ( acetaminophen/ibuprofen) and Antibiotic Discharge Plan Discharge Clinical Impression: Influenza, Pneumonia Patient Disposition: Home, Self-Care Instructions: Influenza (ED), Pneumonia (ED) Additional Instructions: Chest x-ray today does show evidence of a mild case of pneumonia, in the setting of recently being ill with influenza. For this a prescription for antibiotic is being sent to the pharmacy. Be sure to rest, stay well hydrated drinking plenty of fluids, eat small frequent meals. Tylenol/ibuprofen can be used as needed for fever/pain. Cykj-pfz-[id number] cold medications may be helpful as well for symptoms. Saline nasal spray, humidifier may be helpful for nasal congestion. You may return to the emergency department with any new or worsening symptoms or concerns. Follow-up with your primary care provider as needed. Should remain out of school/ work until symptoms have resolved and have been without a fever for 24 hours without the use of Tylenol or ibuprofen. Prescriptions: New amoxicillin 500 mg tablet 1,000 mg PO TID 5 Days Qty: 30 0RF No Action acetaminophen [Tylenol] 325 mg tablet 650 mg PO Q6H PRN (Reason: fever or pain) Qty: 20 0RF ibuprofen 600 mg tablet 600 mg PO Q6H PRN (Reason: fever or pain) Qty: 20 0RF lisinopril 10 mg tablet 10 mg PO DAILY albuterol sulfate [ProAir HFA] 90 mcg/actuation HFA aerosol inhaler 2 puff inhalation Q4-6H PRN guanfacine 2 mg tablet 2 mg PO Referrals: Hank Levy MD [Primary Care Provider] - Print Language: Telugu
[2024-06-08] MEDS: Amoxicillin 500 MG CAPSULE 1000 MG PO (17:03)
[2024-06-08 17:29] VITALS: BP 97/53; PULSE 66; RESP 18; TEMP 36.6; O2SAT 96
[2024-06-08 17:45] LABS: Influenza A PCR POSITIVE (Negative); Influenza B PCR NEGATIVE (Negative); Resp Syncy Virus RNA Qual PCR NEGATIVE (Negative); SARS COV2 PCR INHOUSE NEGATIVE (Negative)
== END 2024-06-08 17:30 | disposition home or self-care (01) ==
PROVIDERS: Nurse Practitioner Family; Emergency Provider Emergency Medicine Emergency Medical Services; PCP Internal Medicine
DX: J10.1 Influenza due to other identified influenza virus with other respiratory manifestations (principal); J18.9 Pneumonia, unspecified organism; R05.9 Cough, unspecified; R50.9 Fever, unspecified; Z03.818 Encounter for observation for suspected exposure to other biological agents ruled out
CPT/HCPCS: 0241U; 71046; 99282; 99283

== ENCOUNTER → 2024-06-08 15:47 | Outpatient (BNV) | payer MEDICAID, SELFPAY | PROVIDERS: Emergency Provider Emergency Medicine Emergency Medical Services; PCP Internal Medicine; Visit Provider Radiology Diagnostic Radiology | DX: R05.9 Cough, unspecified (principal); R50.9 Fever, unspecified | CPT/HCPCS: 71046 ==

== ENCOUNTER 2024-06-20 09:30 | Outpatient (REF) | payer MEDICAID, SELFPAY ==
--- OUTSIDE RECORDS SUMMARY | 2024-06-20 10:20 | XMS_ITS | Encounter Summary ---
Author Organization [employer] Address [address] [place] [address] Care Team Providers Care Systems Test Technician Name Role Phone Hank Zuleta MD Primary Care Provide r Reason for Visit * Reason Comments Med Refill Encounter Details Date Type Department Care Team ([facility] st Contact Info) Description 04/10/2023 Refill [facility] [address] [place], [place] [phone] Hank Zuleta MD [address] [place] [address] Attention deficit hyperactivity disorder (ADHD), combined type Social History Tobacco Use Types Packs/Day Years Used Date Smoking Tobacco: Never Passive Smoke Exposure: Never Smokeless Tobacco: Never Depression Answer Date Recorded Patient Health Questionnaire-9 Score 0 06/20/2022 Housing Stability Answer Date Recorded What is your housing situation today? I have dominic yoder 02/05/[address] you li ve. Do you have problems with any of the following? None of the above 02/05/2023 Food Insecurity Answer Date Recorded Within the past 12 months, y ou worried that your food would run out before you got money to buy more: Never True 02/05/2023 Within the past 12 months,th e food you bought just didn't last and you didn't have enough money to get more: Never True Transportation Answer Date Recorded In the past 12 months, has l ack of transportation kept you from medical appts, meetings, work or from getting things needed for daily living? No 02/05/2023 Utilities Answer Date Recorded In the past 12 months, has t he electric, gas, oil or water [employer] threatened to shut off services in your home? No 02/05/2023 Depression Answer Date Recorded Patient Health Questionnaire-2 Score 0 06/20/2022 Sex and Gender Information Value Date Recorded Sex Assigned at Male 02/13/2022 10:17 AM EDT Legal Sex Male 10:17 AM EDT Gender Identity Male 02/13/2022 10:17 AM EDT Sexual Orientation Straight 02/13/2022 10 :17 AM EDT documented as of this encounter Plan of Treatment Upcoming Encounters Date Type Department Care Team (Late st Contact Info) Description 06/26/2024 2:30 PM EDT Office Visit [facility] [address] [place] [address] Hank Zuleta MD [address] [place] [address] documented as of this encounter Visit Diagnoses Diagnosis Attention deficit hyperactivity disorder (ADHD), combined type documented in this encounter Additional Health Concerns Assessment Noted Time PHQ-9 Depression Total Score: 0 06/21/19 23 9:56 AM EST documented as of this encounter Care Teams Systems Test Technician Relationship Specialty Start Date End Date Hank Zuleta MD [address] [place] [address] PCP - General Internal Medicine 06/25/18 documented as of this encounter
--- OUTSIDE RECORDS SUMMARY | 2024-06-20 10:20 | XMS_ITS | Encounter Summary ---
Author Organization [facility] Address [address] [place] [phone] Phone Care Team Providers Care Tube Coater Name Role Phone Unavailable Primary Care Provider Unavailabl e Reason for Visit * Reason Comments Med Refill Encounter Details Date Type Department Care Team (Late st Contact Info) Description 01/31/2018 Refill [facility] - [address] [phone] Mercedes Montalvo MD Mild intermittent asthma without complication Social History Tobacco Use Types Packs/Day Years Used Date Smoking Tobacco: Never Comments:Never smoker Sex and Gender Information Value Date Recorded Sex Assigned at Not on file Legal Sex Male 5:10 PM EDT Gender Identity Not on file Sexual Orientation Not on file documented as of this encounter Miscellaneous Notes * Telephone Encounter - Dahlia Alves LPN - 02/01/2018 10:17 AM EDT Left message with parent to have Ar[facility] call [facility] back * Telephone Encounter - Donna Gar MD - 02/01/2018 8:16 AM EDT Deanna/triage-can you let patient know I sent over the Rx but he definitely needs to be schedulinga new patient appointment-please ask them to schedule master; thanks * Telephone Encounter - Deanna Cornejo MA - 01/31/2018 6:30 PM EDT Well visit current. Refill for Pulmicort sent to for refill Sunday. Not sure if pt has found a new pcp yet. documented in this encounter Plan of Treatment Not on file documented as of this encounter Visit Diagnoses Diagnosis Mild intermittent asthma without complication documented in this encounter
--- OUTSIDE RECORDS SUMMARY | 2024-06-20 10:20 | XMS_ITS | Encounter Summary ---
Author Organization [employer] Address [address] [place] [address] Care Team Providers Care Malt House Supervisor Name Role Phone Hank Zuleta MD Primary Care Provide r Reason for Visit * Reason Comments Cough Encounter Details Date Type Department Care Team ([facility] st Contact Info) Description 06/20/2024 9:00 AM EST Office Visit [facility] [address] [place], [place] [phone] Persistent cough (Primary Dx) Social History Tobacco Use Types Packs/Day Years Used Date Smoking Tobacco: Never Passive Smoke Exposure: Never Smokeless Tobacco: Never Depression Answer Date Recorded Patient Health Questionnaire-9 Score 0 01/17/2024 Patient Health Questionnaire-9 Score 0 01/17/2024 Last PHQ-9: Questionnaire Data Not on file 1 Housing Stability Answer Date Recorded What is [...] t he electric, gas, oil or water company threatened to shut off services in your home? No 02/05/2023 Depression Answer Date Recorded Patient Health Questionnaire-2 Score 0 01/17/2024 Internet Access Answer Date Recorded Internet Access Q1 Yes 01/09/2024 Internet Access Q2 Not on file 01/09/2024 Sex and Gender Information Value Date Recorded Sex Assigned at Male 02/13/2022 10:17 AM EDT Legal Sex Male 10:17 AM EDT Gender Identity Male 02/13/2022 10:17 AM EDT Sexual Orientation Straight 02/13/2022 10 :17 AM EDT documented as of this encounter Last Filed Vital Signs Vital Sign Reading Time Taken Comments Blood Pressure 132/80 06/20/2024 8:54 AM EST Pulse 76 06/20/2024 8:54 AM EST Temperature 36.7 ??C (98.1 ??F) 06/20/2024 8:54 AM ES T Respiratory Rate 20 06/20/2024 8:54 AM EST Oxygen Saturation - - Inhaled Oxygen Concentration - - Weight 89.7 kg (197 lb 12.8 oz) 06/20/2024 8:54 AM EST Height 163.8 cm (5' 4.5 ) 06/20/2024 8:54 AM EST Body Mass Index 33.43 06/20/2024 8:54 AM EST documented in this encounter Plan of Treatment Upcoming Encounters Date Type Department Care Team (Late st Contact Info) Description 06/26/2024 2:30 PM EDT Office Visit [facility] [address] [place] [address] Hank Zuleta MD [address] [place] [address] documented as of this encounter Visit Diagnoses Diagnosis Persistent cough- Primary documented in this encounter Additional Health Concerns Assessment Noted Time PHQ-9 Depression Total Score: 0 01/17/20 24 2:09 PM EDT documented as of this encounter Care Teams Malt House Supervisor Relationship Specialty Start Date End Date Hank Zuleta MD [address] [place] [address] PCP - General Internal Medicine 06/25/18 documented as of this encounter
--- OUTSIDE RECORDS SUMMARY | 2024-06-20 10:20 | XMS_ITS | Encounter Summary ---
Author Organization [facility] Address [address] [place] [phone] Phone Care Team Providers Care Button Breaker Operator Name Role Phone Unavailable Primary Care Provider Unavailabl e Encounter Details Date Type Department Care Team (Late st Contact Info) Description 05/02/2012 Documentation EM Family Medicine [address] [place] [address] Family Medicine, Physician [address] [place], [place] [phone] Social History Tobacco Use Types Packs/Day Years Used Date Smoking Tobacco: Never Assessed Sex and Gender Information Value Date Recorded Sex Assigned at Not on file Legal Sex Male 5:10 PM EDT Gender Identity Not on file Sexual Orientation Not on file documented as of this encounter Plan of Treatment Not on file documented as of this encounter Visit Diagnoses Not on filedocumented in this encounter
--- OUTSIDE RECORDS SUMMARY | 2024-06-20 10:20 | XMS_ITS | Encounter Summary ---
Author Organization [employer] Address [address] [place] [address] Care Team Providers Care Proofer Name Role Phone Hank Zuleta MD Primary Care Provide r Reason for Visit * Reason Comments Med Change Request Encounter Details Date Type Department Care Team ([facility] st Contact Info) Description 06/05/2024 Refill [facility] [address] [place] [address] Arabella Aguilar MD [address] [place] [address] Flu-like symptoms Social History Tobacco Use Types Packs/Day Years [...] Description 06/26/2024 2:30 PM EDT Office Visit [facility] [address] [place] [address] Hank Zuleta MD [address] [place] [address] documented as of this encounter Visit Diagnoses Diagnosis Flu-like symptoms documented in this encounter Additional Health Concerns Assessment Noted Time PHQ-9 Depression Total Score: 0 01/17/20 24 2:09 PM EDT documented as of this encounter Care Teams Proofer Relationship Specialty Start Date End Date Hank Zuleta MD [address] [place] [id number] PCP - General Internal Medicine 06/25/18 documented as of this encounter
--- OUTSIDE RECORDS SUMMARY | 2024-06-20 10:20 | XMS_ITS | Clinical Summary ---
Author Organization [facility] Address [address] [facility] 7[address] [place] [address] Care Team Providers Care Biomedical Photographer Name Role Phone Hank Zuleta MD Primary Care Provide r Allergies No known active allergies Medications nortriptyline (Pamelor) 10 MG capsule TAKE 1 CAPSULE BY MOUTH EVERY DAY 30 capsule 3 07/11/19 23 Active hydrOXYzine HCl (Atarax) 25 MG tabletIndication s:Attention deficit hyperactivity disorder (ADHD), combined type TAKE 1 TABLET BY MOUTH 3 TIMES EVERY DAY NEEDED FOR ITCHING AND RASH 90 tablet 09/06/19 24 Active lisinopril 10 MG tabletIndication s:Other secondary hypertension TAKE 1 TABLET BY MOUTH EVERY DAY IN THE MORNING 90 tablet 1 04/21/19 25 Active albuterol 108 (90 Base) MCG/ACT inhalerIndicatio ns:Flu-like symptoms Inhale 2 puffs every 4 (four) hours if needed for wheezing. 18 g 06/05/19 25 Active guanFACINE (Tenex) 2 MG tabletIndication s:Attention deficit hyperactivity disorder (ADHD), combined type TAKE 1 TABLET BY MOUTH EVERY DAY IN THE MORNING AND 1/2 TABLET BY MOUTH AT BEDTIME 45 tablet 6 06/18/19 25 Active benzonatate (Tessalon Perles) 100 MG capsuleIndicatio ns:Persistent cough Take 1 capsule (100 mg) by mouth if needed in the morning, at noon, and at bedtime for cough for up to 7 days. Do not crush or chew. 20 capsule 06/21/19 25 025 Active ProAir HFA 108 (90 Base) MCG/ACT inhaler TAKE 2 PUFFS BY MOUTH EVERY 4 TO 6 HOURS NEEDED 06/22/19 22 025 Discontinued(R eorder (will not trigger notification to Pharmacy)) guanFACINE (Tenex) 2 MG tabletIndication s:Attention deficit hyperactivity disorder (ADHD), combined type TAKE 1 TABLET BY MOUTH EVERY DAY IN THE MORNING AND 1/2 TABLET BY MOUTH AT BEDTIME 45 tablet 6 11/05/19 24 025 Discontinued ProAir HFA 108 (90 Base) MCG/ACT inhalerIndicatio ns:Flu-like symptoms Inhale 2 puffs every 4 (four) hours if needed for wheezing. 18 g 06/05/19 25 025 Discontinued brompheniramine- pseudoephedrine- DM 30-2-10 MG/5ML syrupIndications :Flu-like symptoms Take 5 mL by mouth if needed in the morning, at noon, in the evening, and at bedtime for allergies for up to 10 days. 120 mL 06/05/19 25 025 oseltamivir (Tamiflu) 75 MG capsuleIndicatio ns:Influenza A Take 1 capsule (75 mg) by mouth 2 times daily for 5 days. 10 capsule 06/05/19 25 025 Active Problems Problem Noted Date Diagnosed Date Persistent cough 06/20/2024 Influenza A 06/05/2024 Assessment & Plan (06/05/2024 12:14 PM EST): Drink plenty of fluids and rest Acetaminophen As needed Cough syrup prescribed today Albuterol inhaler as needed Hypertriglyceridemia 12/19/2022 Assessment & Plan (01/17/2024 1:51 PM EDT): Pt here for a follow up Lab Results Component Value Date TRIG 272 (H) 12/14/2022 CHOL 205 (H) 12/14/2022 LDLCHOLCAL 116 (H) 12/14/2022 HDL 35 (L) 12/14/2022 Assessment & Plan (06/21/2023 2:55 PM EST): Pt here for a follow up Trigs 12/14/2022 was 272 will repeat Diet and exercise to begin with Assessment & Plan (12/19/2022 10:57 AM EDT): Pt here for a follow up Trigs 12/14/2022 was 272 Diet and exercise to begin with Class 1 obesity due to exces s calories with body mass index (BMI) of 33.0 to 33.9 in adult 06/20/2022 Assessment & Plan (01/17/2024 1:50 PM EDT): Patient has been counseled and educated about diet and exercise. Personal goal of weight loss discussed Assessment & Plan (06/21/2023 2:54 PM EST): Patient has been counseled and educated about diet and exercise. Personal goal of weight loss discussed Assessment & Plan (06/20/2022 10:18 AM EST): Patient has been counseled and educated about diet and exercise. 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 In vocational program. Tried increasing tenex to 2 mg in AM, 0-1 in PM in 07/31 or even 2 mg BID On Tenex 1 mg BID after failing many ADHD meds..unclear if this is cognitive delays due to NF or ADHD; has IEP. In vocational program. Tried increasing tenex to 2 mg in AM, 0-1 in PM in 07/31 or even 2 mg BID Assessment & Plan (06/21/2023 2:54 PM EST): Used to go to [facility] and see Dr Mercedes Montalvo. Currently his condition remains unchanged I have continued to prescribe his Guanfacine 2 mg 1 tab po in AM and 1/2 tab at bedtime which have been helpful Doing well per mother's report. The only thing they worry about is how he is not physically active. Assessment & Plan (12/19/2022 11:00 AM EDT): Used to go to [facility] and see Dr Mercedes Montalvo. Currently his condition remains unchanged I have continued to prescribe his Guanfacine 2 mg 1 tab po in AM and 1/2 tab at bedtime which have been helpful Family would like to try increasing to 2mg po BID I discussed with him that for now we would stay in current dose Doing well per mother's report. The only thing they worry about is how he is not physically active. Other secondary hypertension 08/31/2009 Overview (06/20/2022): Onset date 08/31/2009; last addressed on 11/07/2013; sees Dr. Sy; on atenolol 25 mg; sees cardio Kerrie yearly in fall...may wean in 2013. Onset date 08/31/2009; last addressed on 11/07/2013; sees Dr. Sy; on atenolol 25 mg; sees cardio Kerrie yearly in fall...may wean in 2013. Assessment & Plan (01/17/2024 1:50 PM EDT): Pt here for a f/u BP controlled Pt with secondary hypertension in the setting of neurofibromatosis Pt is on Lisinopril 20 mg po daily,by Business Systems Administrator, last seen 08/13/2023 BMP 12/14/2022 was within normal limits, will repeat Pt sees Dr Maguire and had a recent Renal Doppler and Abdominal MRA that were unrevealing. Dr. Maguire recommended pt be seen by Cardiology. Last seen on 08/13/[address] Paredes who recommended yearly ECHOs for his mild aortic insufficiency and f/u with renal Assessment & Plan (06/21/2023 2:54 PM EST): Pt here for a f/u BP remains controlled Pt with secondary hypertension in the setting of neurofibromatosis Pt is on Lisinopril 20 mg po daily,by Business Systems Administrator, last seen 01/2023 BMP 12/14/2022 was within normal limits, will repeat Pt sees Dr Maguire and had a recent Renal Doppler and Abdominal MRA that were unrevealing. Dr. Mgauire recommended pt be seen by Cardiology. Last seen on 01/[address] Paredes who recommended yearly ECHOs for his mild aortic insufficiency and f/u with renal Assessment & Plan (06/20/2022 10:07 AM EST): Pt here for a f/u BP remains controlled Pt with secondary hypertension in the setting of neurofibromatosis Pt is on Lisinopril 20 mg po daily,by Business Systems Administrator BMP 11/09/2020 was within normal limits, will repeat Pt sees Dr Maguire and had a recent Renal Doppler and Abdominal MRA that were unrevealing. Dr. Maguire recommended pt be seen by Cardiology. Last seen on 02/09/[address] Paredes who recommended yearly ECHOs for his mild aortic insufficiency and f/u with renal Encounters Date Type Department Care Team Description 06/20/2024 9:00 AM EST Office Visit [facility] [address] [place] [address] Persistent cough (Primary Dx) 06/16/2024 Patient Outreach [facility] [address] [place] [phone] Hank Zuleta MD Pre-visit Planning (Pre-visit planning - LVM ) 06/16/2024 Refill [facility] [address] [place] [address] Hank Zuleta MD Attention deficit hyperactivity disorder (ADHD), combined type 06/13/2024 Telephone [facility] [address] [place] [address] Hank Zuleta MD Chart Prep 06/08/2024 Orders Only [facility] External Provider, [facility] 06/05/2024 1:00 PM EST Office Visit [facility] [address] [place] [address] Arabella Aguilar MD Influenza A (Primary Dx); Flu-like symptoms 06/05/2024 Refill [facility] [place] [address] [place] [address] Arabella Aguilar MD Flu-like symptoms 04/24/2024 Telephone [facility] [address] [place], [place] [phone] Hank Zuleta MD June Recall 04/21/2024 Refill [facility] [address] [place] [address] Hank Zuleta MD Other secondary hypertension from Last 3 Months Immunizations Name Administration Dates Next Due DTP 08/12/1997,05/01/1997,02/20/1997 DTaP, 5 pertussis antigens 12/14/2000,05/06/1999 HPV, Quadrivalent 11/07/2013,01/01/2013,10/25/19 13 Hep A, ped/adol, 2 dose 11/19/2014,11/07/2013 Hep B, Adolescent or Pediatric 08/12/1997,1997,02/20/1997 Hib (PRP-T) 04/17/1999, 8,05/01/1997,02/20 IPV 12/14/2000, 8,05/01/1997,02/20 Influenza injectable quadriv alent IIV4 with preservative 02/02/2015,02/10/2014 Influenza injectable quadriv alent preservative free 04/22/2019,06/25/2018,03/23/2017,01/02 Influenza, IIV3, injectable 01/12/2009,1 05/21/2007,01/17/2007,04/05 Influenza, Split (incl. blade fied surface antigen) 01/01/2013,02/16/2011,01/07/2010 Influenza, seasonal, injecta ble, preservative free 01/09/2024 MMR 06/29/2000,02/12/1998 Meningococcal MCV4P ACYW-135 11/19/2014,06/23/19 10 Moderna Covid-19 Vaccine 12+ 03/09/2021,07/14/19 21,06/15/2020 Novel Cldqmluol-C4H3-56, all formulations 02/12/2009 Tdap 06/22/2009 Varicella 11/10/2002,06/29/2000 Social History Tobacco Use Types Packs/Day Years Used Date Smoking Tobacco: Never Passive Smoke Exposure: Never Smokeless Tobacco: Never Tobacco Cessation:Counseling Given: Not Answered Depression Answer Date Recorded Patient Health Questionnaire-9 Score 0 01/17/2024 Patient Health Questionnaire-9 Score 0 01/17/2024 Last PHQ-9: Questionnaire Data Not on file 1 Housing Stability Answer Date Recorded What is your housing situation today? I have dominicbea yoder 02/05/[address] you [...] Orientation Straight 02/13/2022 10 :17 AM EDT Last Filed Vital Signs Vital Sign Reading Time Taken Comments Blood Pressure 132/80 06/20/2024 8:54 AM EST Pulse 76 06/20/2024 8:54 AM EST Temperature 36.7 ??C (98.1 ??F) 06/20/2024 8:54 AM ES T Respiratory Rate 20 06/20/2024 8:54 AM EST Oxygen Saturation 96% 06/05/2024 11: 26 AM EST Inhaled Oxygen Concentration - - Weight 89.7 kg (197 lb 12.8 oz) 06/20/2024 8:54 AM EST Height 163.8 cm (5' 4.5 ) 06/20/2024 8:54 AM EST Body Mass Index 33.43 06/20/2024 8:54 AM EST Plan of Treatment Upcoming Encounters Date Type Department Care Team (Late st Contact Info) Description 06/26/2024 2:30 PM EDT Office Visit [facility] [address] [place] [phone] Hank Zuleta MD [address] [place] [address] Health Maintenance Due Date Last Done Comments HIV Screening 1996 Alcohol/Substance Use Screening 2008 Family Planning (PISQ) 11/28/2011 Hepatitis C Screening 2014 Pneumococcal Vaccine: Pediatrics (0 to 5 Years) and At-Risk Patients (6 to 49) Years) (1 of 2 - PCV) 11/28/2015 DTaP/Tdap/Td Vaccines (7 - Td or Tdap) 06/23/2019 06/22/2009, 12/14/2000, 05/06/1999, Additional history exists SDOH Screening 06/13/2024 06/13/2023 Tobacco Screening 06/20/2024 06/21/2023 Depression Screening 01/16/2025 01/17/2024, 01/17/20 24 Lipid Panel 12/15/2027 12/14/2022 Zoster Vaccines (1 of 2) 2046 RSV Patients and Patients Aged 60 years or older (1 - 1-dose 75+ series) 11/28/2071 Hepatitis B Vaccines Completed 08/12/1997, 05/01/1997, 02/20/1997 HIB Vaccines Completed 04/17/1999, 07/16, 05/01/1997, Additional history exists IPV Vaccines Completed 12/14/2000, 05/1997, 05/01/1997, Additional history exists HPV Vaccines Completed 11/07/2013, 12/15, 10/24/2012 Hepatitis A Vaccines Completed 11/19/2014, 11/08/19 14 Meningococcal Vaccine Completed 11/19/2014, 010 COVID-19 Vaccine Completed 01/09/2024, , 07/13/2020, Additional history exists Influenza Vaccine Completed 01/09/2024, , 06/25/2018, Additional history exists RSV under 20 months Aged Out No longe r eligible based on patient's age to complete this topic Rotavirus Vaccines Aged Out No longer eligible based on patient's age to complete this topic Procedures Procedure Name Priority Date/Time Associated Diagnosis Comments SARS COV2/INFLUENZA A/B AND RSV RNA QL NAAT Routine 06/08/2024 4:34 PM EST XR CHEST 2 VIEWS Routine 06/08/2024 4:26 PM EST POCT INFLUENZA B (ID NOW RAPID MOLECULAR) Routine 06/05/2024 11:36 AM EST Flu-like symptoms POCT INFLUENZA A (ID NOW RAPID MOLECULAR) Routine 06/05/2024 11:35 AM EST Flu-like symptoms POCT RAPID COVID ANTIGEN Routine 06/05/2024 11:29 AM EST Flu-like symptoms LIPID PANEL, STANDARD Routine 12/14/2022 9:29 AM EDT from Last 3 Months or Most Recently Relevant to Health Maintenance Results * (ABNORMAL) SARS-CoV-2 RNA, Influenza A/B, and RSV RNA, Ql NAAT (06/08/2024 4:34 PM EST) Influenza A PCR POSITIVE(A) Negative [facility] Influenza B PCR NEGATIVE Negative [facility] Resp Syncy Virus RNA Qual PCR NEGATIVE Negative [facility] SARS COV2 PCR NEGATIVE Negative [facility] Comment:All test results mus t be correlated with clinical findings.Negative results do not preclude SARS-CoV2, influenza Avirus, influenza B virus and/or RSV infectionand should not be used as the sole basis for treatment orother patient management decisions. Negative results must becombined with clinical observations, patient history, andepidemiological information.This test has not been evaluated for monitoring treatment ofinfection.This test has been authorized by the FDA under an EmergencyUse Authorization (EUA) for use by authorized laboratories.Testing performed on the [employer] GeneXpert utilizingreal-time RT-PCR.All SARS CoV2 and positive influenza A/B results arereported to [facility]. 06/08/2024 4:34 PM EST 06/08/2024 4:37 PM EST us Generic External Data Provider LAB MICROBIOLOGY - GENERAL ORDERABLES Final Result [facility] [address] [place] [phone] * XR Chest 2 Views (06/08/2024 4:26 PM EST) Anatomical Region Laterality Modality Chest Radiographic Dunia ging 06/08/2024 4:26 PM EST Narrative 06/08/2024 4:27 PM EST ? [place] [facility] ?[address] ?[place] [address] ?XRay Report ? Signed ? Patient: Alona Davison,Arsh ?MR#: M ?? [id number] ? : 1995 ?Acct:[id number] ? Age/Sex: 28 / M ?ADM Date: 06/08/24 ? Loc: HO.ED ? Attending Dr: ? Ordering Physician: Jing Don CNP ?? Date of Service: 06/08/24 ?? Procedure(s): XR chest 2V ?? Accession Number(s): [id number] ? cc: Jing Don CNP; Hank Levy MD ? CLINICAL HISTORY: cough, fevers ? 2 view chest x-ray ? Comparison: CR/SR - XR CHEST 2V - 09/19/23 15:07 EDT ?? CR - XR CHEST 1V - 08/13/20 14:35 EDT ? Findings: ?? Mild patchy bilateral perihilar and basilar opacity. ?? Heart size is normal. ?? No acute fracture. ? IMPRESSION: ?? Mild atypical pneumonia. ? This document has been electronically signed by: Jac Lee MD on ?? 06/08/2024 16:26:27 ? Dictated By: ?Jac Lee MD ? Signed By: ?<Electronically signed by Jac Lee MD in OV> ? 06/08/24 1627 ? DD/ 25 ? TD/TT: 06/08/241625 ? Flange Machine Operator: ? Procedure Note Pernell, Image - 06/08/2024 [place] [address] XRay Report Signed Patient: Kellie Mulligan#: M [id number] : 1995Acct:[id number] Age/Sex: 28 / MADM Date: 06/08/24 Loc: HO.ED Attending Dr: Ordering Physician: Jing Don CNP Date of Service: 06/08/24 Procedure(s): XR chest 2V Accession Number(s): [id number] cc: Jing Don CNP; Hank Levy MD CLINICAL HISTORY: cough, fevers 2 view chest x-ray Comparison: CR/SR - XR CHEST 2V - 09/19/23 15:07 EDT CR - XR CHEST 1V - 08/13/20 14:35 EDT Findings: Mild patchy bilateral perihilar and basilar opacity. Heart size is normal. No acute fracture. IMPRESSION: Mild atypical pneumonia. This document has been electronically signed by: Jac Lee MD on 06/08/2024 16:26:27 Dictated By: Jac Lee MD Signed By: <Electronically signed by Jac Lee MD in OV> 06/08/24 1627 DD/ 1626 TD/TT: 06/08/24 1626 Flange Machine Operator: [facility] External Provider IMG XR PROCEDURES Final Result * Influenza B (ID NOW Rapid Molecular) (06/05/2024 11:36 AM EST) [facility] Influenza B Negative Negative, Indeterminate [facility] Swab 06/05/2024 11:3 6 AM EST Result [facility] Arabella Rodriguez MD POINT OF CARE TEST EN TER/EDIT ORDERABLES Final Result Performing Organization Address City/[facility]/ZIP Co de Phone Number [facility] [address] [place] [phone] * (ABNORMAL) Influenza A (ID NOW Rapid Molecular) (06/05/2024 11:35 AM EST) [facility] Influenza A Positive( A) Negative, Indeterminate [facility] Swab 06/05/2024 11:3 5 AM EST Arabella Rodriguez MD POINT OF CARE TEST ENTER/EDIT ORDERABLES Edited Result - Final Performing Organization Address [facility]/ZIP Co de Phone Number [facility] [address] [place] [phone] * POCT Rapid COVID Ag (06/05/2024 11:29 AM EST) [facility] Rapid COVID Ag Negative Swab 06/05/2024 11:2 9 AM EST us Arabella Rodriguez MD POINT OF CARE TEST EN TER/EDIT ORDERABLES Final Result * (ABNORMAL) Lipid Panel, Standard (12/14/2022 9:29 AM EDT) Triglycerides 272(H) <150 mg/dL [facility] Comment:Desirable Triglyceri de: less than 150 mg/dLBorderline High Triglyceride 150-199 mg/dLHigh Triglyceride: 200-499 mg/dLVery High Triglyceride: greater than or equal to 5OO mg/dL Cholesterol 205(H) <200 mg/dL [facility] Comment:Desirable Cholestero l: less than 200 mg/dLBorderline High Cholesterol: 200-239 mg/dLHigh Cholesterol: greater than 239 mg/dL LDL Cholesterol Calculated 116(H) <100 mg/dL [facility] Comment:Desirable LDL: less than 100 mg/dLNear Optimal/Above Optimal LDL: 110- 129 mg/dLBorderline High LDL: 130-159 mg/dLHigh LDL: 160-189 mg/dLVery High LDL: greater than or equal to 190 mg/dL HDL Cholesterol 35(L) >40 mg/dL [facility] Comment:Desirable HDL: great er than 40 mg/dL Note: This HDL assay may give artificially low results in patients with liver disease. 12/14/2022 9:29 AM EDT 12/14/2022 11:40 AM EDT us Hank Lee MD LAB BLOOD ORDERABLES Final Result [facility] [address] [place] [address] [phone] from Last 3 Months or Most Recently Relevant to Health Maintenance Insurance [facility] C3 Care Teams Biomedical Photographer Relationship Specialty Start Date End Date Hank Zuleta MD [address] [place] [address] [place] [address] PCP - General Internal Medicine 06/25/18
--- OUTSIDE RECORDS SUMMARY | 2024-06-20 10:20 | XMS_ITS | Encounter Summary ---
Author Organization [facility] Address [address] [place] [phone] Phone Care Team Providers Care Desktop Support Technician Name Role Phone Unavailable Primary Care Provider Unavailabl e Encounter Details Date Type Department Care Team (Late st Contact Info) Description 07/30/2012 Documentation [facility] [address] [place] [address] Family Medicine, Physician [address] [place], [place] [phone] Social History Tobacco Use Types Packs/Day Years [...]
--- OUTSIDE RECORDS SUMMARY | 2024-06-20 10:20 | XMS_ITS | Encounter Summary ---
Author Organization [facility] Address [address] [place] [phone] Phone Care Team Providers Care Ceramics Instructor Name Role Phone Unavailable Primary Care Provider Unavailabl e Encounter Details Date Type Department Care Team (Late st Contact Info) Description 11/30/2016 Conversion Encounter [facility] - [address] [address] Social History Tobacco Use Types Packs/Day Years [...]
--- OUTSIDE RECORDS SUMMARY | 2024-06-20 10:20 | XMS_ITS | Encounter Summary ---
Author Organization [facility] Address [address] [place] [phone] Phone Care Team Providers Care Supply Requirements Officer Name Role Phone Unavailable Primary Care Provider Unavailabl e Encounter Details Date Type Department Care Team (Late st Contact Info) Description 08/21/2012 Documentation [facility] [address] [place] [address] Family Medicine, Physician [address] [place], [place] [phone] Social History Tobacco Use Types Packs/Day Years [...]
--- OUTSIDE RECORDS SUMMARY | 2024-06-20 10:20 | XMS_ITS | Encounter Summary ---
Author Organization [employer] Address [address] [facility] 7t [place] [address] Care Team Providers Care Sales Performance Analyst Name Role Phone Hank Zuleta MD Primary Care Provide r Reason for Visit * Reason Onset Date Comments Chart Prep 06/13/2024 Encounter Details Date Type Department Care Team ([facility] st Contact Info) Description 06/13/2024 Telephone [facility] [address] [place] [address] Hank Zuleta MD [address] [place], [place] [phone] Chart Prep Social History Tobacco Use Types Packs/Day Years [...] AM EDT documented as of this encounter Miscellaneous Notes * Telephone Encounter - Vashti Everett [place] - 06/13/2024 2:59 PM EST Chart Prep Labs: not done Images: not applicable Vaccines due: Tdap Due and PCV20 Due Referrals: Nutrition Pending appointment on n/a Screenings: HIV screening Overdue care gaps: Sbirt and SDOH Chart prep for upcoming appt with Dr.Esparza patel. LB documented in this encounter Plan of Treatment Upcoming Encounters Date Type Department Care Team (Late st Contact Info) Description 06/26/2024 2:30 PM EDT Office Visit [facility] [address] [place] [address] Hank Zuleta MD [address] [place] [address] documented as of this encounter Visit Diagnoses Not on filedocumented in this encounter Additional Health Concerns Assessment Noted Time PHQ-9 Depression Total Score: 0 01/17/20 24 2:09 PM EDT documented as of this encounter Care Teams Sales Performance Analyst Relationship Specialty Start Date End Date Hank Zuleta MD [address] [place] [phone] PCP - General Internal Medicine 06/25/18 documented as of this encounter
--- OUTSIDE RECORDS SUMMARY | 2024-06-20 10:20 | XMS_ITS | Encounter Summary ---
Author Organization [facility] Address [address] [place] [phone] Phone Care Team Providers Care Cotton Baler Name Role Phone Unavailable Primary Care Provider Unavailabl e Encounter Details Date Type Department Care Team (Late st Contact Info) Description 08/15/2016 Documentation [facility] [address] [place] [address] Family Medicine, Physician [address] [place], [place] [phone] Social History Tobacco Use Types Packs/Day Years [...]
--- OUTSIDE RECORDS SUMMARY | 2024-06-20 10:20 | XMS_ITS | Encounter Summary ---
Author Organization [facility] Address [address] [place] [phone] Phone Care Team Providers Care Esthetician/Spa Coordinator Name Role Phone Unavailable Primary Care Provider Unavailabl e Encounter Details Date Type Department Care Team (Late st Contact Info) Description 09/17/2014 Documentation [facility] [address] [place] [address] Family Medicine, Physician [address] [place], [place] [phone] Social History Tobacco Use Types Packs/Day Years [...]
--- OUTSIDE RECORDS SUMMARY | 2024-06-20 10:20 | XMS_ITS | Encounter Summary ---
Author Organization [employer] Address [address] [facility] 7t [place] [address] Care Team Providers Care Regulatory Coordinator Name Role Phone Hank Zuleta MD Primary Care Provide r Reason for Visit * Reason Comments Pre-visit Planning Pre-visit planning - LVM Encounter Details Date Type Department Care Team ([facility] st Contact Info) Description 06/16/2024 Patient Outreach [facility] MEDICINE [address] [place] [address] Hank Zuleta MD [address] [place] [address] Pre-visit Planning (Pre-visit planning - LVM ) Social History Tobacco Use Types Packs/Day Years [...] AM EDT documented as of this encounter Progress Notes * Sharon Pitts - 06/16/2024 11:13 AM EST PATY Mena placed outbound call to patient to complete pre-visit planning. No answer at this time. Patient name and were not confirmed. CC left voicemail requesting return call. Direct contact information provided. documented in this encounter Plan of Treatment Upcoming Encounters Date Type Department Care Team (Late st Contact Info) Description 06/26/2024 2:30 PM EDT Office Visit [facility] MEDICINE [address] [place] [phone] Hank Zuleta MD [address] [place] [address] documented as of this encounter Visit Diagnoses Not on filedocumented in this encounter Additional Health Concerns Assessment Noted Time PHQ-9 Depression Total Score: 0 01/17/20 24 2:09 PM EDT documented as of this encounter Care Teams Regulatory Coordinator Relationship Specialty Start Date End Date Hank Zuleta MD [address] [place] [phone] PCP - General Internal Medicine 06/25/18 documented as of this encounter
--- OUTSIDE RECORDS SUMMARY | 2024-06-20 10:20 | XMS_ITS | Encounter Summary ---
Author Organization [employer] Address [address] [facility] 7t [place] [address] Care Team Providers Care Division Engineer Name Role Phone Hank Zuleta MD Primary Care Provide r Encounter Details Date Type Department Care Team (Late st Contact Info) Description 2022 Telephone [facility] MEDICINE [address] [place] [address] [phone] Hank Zuleta MD [address] [place] [address] [phone] Social History Tobacco Use Types Packs/Day Years Used Date Smoking Tobacco: Never Passive Smoke Exposure: Never Smokeless Tobacco: Never Depression Answer Date Recorded Patient Health Questionnaire-9 Score 0 06/20/2022 Depression Answer Date Recorded Patient Health Questionnaire-2 [...] Description 06/26/2024 2:30 PM EDT Office Visit [facility] MEDICINE [address] [place] [address] [phone] Hank Zuleta MD [address] [place] [address] [phone] documented as of this encounter Visit Diagnoses Not on filedocumented in this encounter Additional Health Concerns Assessment Noted Time PHQ-9 Depression Total Score: 0 06/21/19 23 9:56 AM EST documented as of this encounter Care Teams Division Engineer Relationship Specialty Start Date End Date Hank Zuleta MD [address] [place] [phone] PCP - General Internal Medicine 06/25/18 documented as of this encounter
--- OUTSIDE RECORDS SUMMARY | 2024-06-20 10:20 | XMS_ITS | Encounter Summary ---
Author Organization [facility] Address [address] [facility] [address] 7[address] [place] [address] Care Team Providers Care Head Insulation Board Saw Operator Name Role Phone Hank Zuleta MD Primary Care Provide r Encounter Details Date Type Department Care Team (Late st Contact Info) Description 06/08/2024 Orders Only [facility] External Provider, [facility] Social History Tobacco Use Types Packs/Day Years [...] 2:30 PM EDT Office Visit [facility] MEDICINE [address] [place] [address] Hank Zuleta MD [address] [place] [address] documented as of this encounter Procedures Procedure Name Priority Date/Time Associated Diagnosis Comments SARS COV2/INFLUENZA A/B AND RSV RNA QL NAAT Routine 06/08/2024 4:34 PM EST XR CHEST 2 VIEWS Routine 06/08/2024 4:26 PM EST documented in this encounter Results * (ABNORMAL) SARS-CoV-2 RNA, Influenza A/B, and RSV RNA, Ql NAAT (06/08/2024 4:34 PM EST) Influenza A PCR POSITIVE(A) Negative [facility] Influenza B PCR NEGATIVE Negative [facility] Resp Syncy Virus RNA Qual PCR NEGATIVE Negative [facility] SARS COV2 PCR NEGATIVE Negative [facility] Comment:All test results mus t be [...] use by authorized laboratories.Testing performed on the Cepheid GeneXpert utilizingreal-time RT-PCR.All SARS CoV2 and positive influenza A/B results arereported to [facility]. 06/08/2024 4:34 PM EST 06/08/2024 4:37 PM EST us Generic External Data Provider LAB MICROBIOLOGY - GENERAL ORDERABLES Final Result [facility] [address] [place] [address] [phone] * XR Chest 2 Views (06/08/2024 4:26 PM EST) Anatomical Region Laterality Modality Chest Radiographic Dunia ging 06/08/2024 4:26 PM EST Narrative 06/08/2024 4:27 PM EST ? [facility] ?[address] ?[place] [id number] ?XRay Report ? Signed ? Patient: Arsh Mulligan ?MR#: M ?? [id number] ? : 1995 ?Acct:[id number] ? Age/Sex: 28 / M ?ADM Date: 06/08/24 ? Loc: HO.ED ? Attending Dr: ? Ordering Physician: Jing Don CNP ?? Date of Service: 06/08/24 ?? Procedure(s): XR chest 2V ?? Accession Number(s): [id number] ? cc: Jing Don CNP; Hank Levy MD ? CLINICAL HISTORY: cough, fevers ? 2 view chest x-ray ? Comparison: CR/SR - XR CHEST 2V - 09/19/23 15:07 EDT ?? CR - XR CHEST 1 - 4 14:35 EDT ? Findings: ?? Mild patchy bilateral perihilar and basilar opacity. ?? Heart size is normal. ?? No acute fracture. ? IMPRESSION: ?? Mild atypical pneumonia. ? This document has been electronically signed by: Jac Lee MD on ?? 06/08/2024 16:26:27 ? Dictated By: ?Jac Lee MD ? Signed By: ?<Electronically signed by Jac Lee MD in OV> ? 06/08/241626 ? DD/ 25 ? TD/TT: 06/08/241625 ? [address] Supervisor: ? Procedure Note Donotmikaylater, Image - 06/08/2024 [facility] [address] [place] [address] XRay Report Signed Patient: Kellie Mulligan#: Kasandra [id number] : 1995Acct:[id number] Age/Sex: 28 / MADM Date: 06/08/24 Loc: HO.ED Attending Dr: Ordering Physician: Jing Don CNP Date of Service: 06/08/24 Procedure(s): XR chest 2V Accession Number(s): [id number] cc: Jing Don EGG SETTER; Hakn Levy MD CLINICAL HISTORY: cough, fevers 2 [...] 06/08/24 1627 DD/ 1626 TD/TT: 06/08/[address] Supervisor: [facility] External Provider IMG XR PROCEDURES Final Result documented in this encounter Visit Diagnoses Not on filedocumented in this encounter Additional Health Concerns Assessment Noted Time PHQ-9 Depression Total Score: 0 01/17/20 24 2:09 PM EDT documented as of this encounter Care Teams Head Insulation Board Saw Operator Relationship Specialty Start Date End Date Hank Zuleta MD [address] [place] [address] PCP - General Internal Medicine 06/25/18 documented as of this encounter
--- OUTSIDE RECORDS SUMMARY | 2024-06-20 10:20 | XMS_ITS | Clinical Summary ---
Author Organization [facility] Address [address] [place] [phone] Phone Care Team Providers Care Turn Machine Operator Name Role Phone Unavailable Primary Care Provider Unavailabl e Allergies No known active allergies Medications PULMICORT FLEXHALER 180 MCG/ACT inhaler USE 1 PUFF BY MOUTH TWICE DAILY 4 7 Active ARTIFICIAL TEARS 1.4 % ophthalmic solution INSTILL 1 DROP IN BOTH EYES 4 TIMES A DAY NEEDED 5 7 Active enalapril (VASOTEC) 2.5 MG tablet Take by mouth. 7 Active albuterol (2.5 MG/3ML) 0.083% nebulizer solution Inhale 2.5 mg every 6 hours. Active nortriptyline 10 MG capsule Take 10 mg by mouth. Active lisinopril 10 MG tablet 8 Active guanFACINE 2 MG tabletIndications: ADHD (attention deficit hyperactivity disorder), combined type Use one tab in AM, half tablet qhs 45 tablet 3 8 Active PULMICORT FLEXHALER 180 MCG/ACT inhalerIndications :Mild intermittent asthma without complication USE 2 PUFFS TWICE A DAY ALL WINTER 1 Units 2 8 Active albuterol HFA 108 (90 Base) MCG/ACT inhalerIndications :Mild intermittent asthma without complication INHALE 2-4 PUFFS EVERY 4 HOURS NEEDED 1 Units 9 Active Active Problems Problem Noted Date Diagnosed Date Anxiety 08/01/2017 Encounter for counseling for care management of patient with chronic conditions and complex health needs using nurse-based model 11/02/2011 Other secondary hypertension 08/31/2009 Overview (03/23/2017): Onset date 08/31/2009; last addressed on 11/07/2013; sees Dr. Sy; on atenolol 25 mg; sees cardio Kerrie yearly in fall...may wean in 2013. ADHD (attention deficit hype ractivity disorder), combined type 08/31/2009 Overview (03/23/2017): On Tenex 1 mg BID after failing many ADHD meds..unclear if this is cognitive delays due to NF or ADHD; has IEP. In vocational program. Tried increasing tenex to 2 mg in AM, 0-1 in PM in 07/31 or even 2 mg BID Neurofibromatosis 08/31/2009 Overview (03/23/2017): Saw Dr. Huerta for many years and also Dr. Archibald. Has had to have neurofibromas removed. Gets regular MRIs of head and lesions. Regular ophtho visits too. Sig learning delays and neurofibromas and beh/ADHD issues. Raised by MGM and Mom (who is also disabled by NF). Bro with same. Switched to adult neuro in 2016, Comfort Rey NP. Asthma 08/31/2009 Overview (03/23/2017): Pulmicort on and off for years, chidi in winter; alb prn Headache 08/31/2009 Overview (03/23/2017): On Nortriptyline 10 mg and prn NSAIDs starting in around 2010 and works...stays on it Immunizations Immunization Administration Dates Next Due DTP 08/12/1997,05/01/1997,02/20/1997 DTaP 5 12/14/2000,05/06/1999 H1N1 02/12/2009 HPV, Quadrivalent 11/07/2013,01/01/2013,10/25/19 13 Hep A, ped/adol 11/19/2014,11/07/2013 Hep B, ped/adol 08/12/1997,05/01/1997,02/20/1997 Hib (PRP-T) 04/17/1999, 8,05/01/1997,02/20 IPV 12/14/2000, 8,05/01/1997,02/20 Influenza Split 01/01/2013,02/16/2011,01/07/2010 Influenza, injectable, quadrivalent 02/02/2015,1 Influenza, injectable, quadr ivalent, preservative free 03/23/2017,01/03/2016 Influenza, injectable, trivalent 009,03/20/2008,01/17/2007,04/05 MMR 06/29/2000,02/12/1998 Meningococcal Conj (Menactra) MCV4P 11/19/2014,0 06/22/2009 Tdap 06/22/2009 Varicella 11/10/2002,06/29/2000 Family History Relation Name Status Comments Brother 1 Brother: Hypert ension, Neurofibromatosis, Asthma Brother 2 Brother: Hypert ension, Neurofibromatosis, Asthma Brother 3 Brother: Hypert ension, Neurofibromatosis, Asthma Maternal Grandmother Materna l grandmother: Diabetes mellitus, Obesity Mother Mother: Migrain es, Developmental delay Other Family history of Sudden /CT under age 55, No family history of *CVA/Stroke, Family history of *Dental caries, No family history of *Sudden /CT under 55, No family history of *Heart Disease, Family history of Hyperlipidemia Social History Tobacco Use Types Packs/Day Years Used Date Smoking Tobacco: Never Comments:Never smoker Sex and Gender Information Value Date Recorded Sex Assigned at Not on file Legal Sex Male 5:10 PM EDT Gender Identity Not on file Sexual Orientation Not on file Last Filed Vital Signs Vital Sign Reading Time Taken Comments Blood Pressure 115/73 2017 3:09 PM EDT Pulse 74 2017 3:09 PM EDT Temperature 24.4 ??C (76 ??F) 09/06/2017 5:01 PM EDT Respiratory Rate - - Oxygen Saturation 98% 02/06/2015 12: 00 AM EDT Inhaled Oxygen Concentration - - Weight 72.9 kg (160 lb 12.8 oz) 2017 3:09 PM EDT Height 160 cm (5' 3 ) 2017 3:09 PM EDT Body Mass Index 28.48 2017 3:09 PM EDT Plan of Treatment Health Maintenance Due Date Last Done Comments DTaP,Tdap,and Td Vaccines (7 - Td or Tdap) 06/23/2019 06/22/2009, 12/14/2000, 05/06/1999, Additional history exists Influenza Vaccines (#1) 2023 03/23/20 17, 01/03/2016, 02/02/2015, Additional history exists COVID-19 Vaccine ( season) 2023 Hepatitis B Vaccines Completed 08/12/1997, 05/01/1997, 02/20/1997 HIB Vaccines Completed 04/17/1999, 07/16, 05/01/1997, Additional history exists MMR Vaccines Completed 06/29/2000, 02/12/1998 IPV Vaccines Completed 12/14/2000, 05/1997, 05/01/1997, Additional history exists Varicella Vaccines Completed 11/10/2002, 06/29/2000 HPV Vaccines Completed 11/07/2013, 12/15, 10/24/2012 Hepatitis A Vaccines Completed 11/19/2014, 11/08/19 14 Meningococcal Vaccine Completed 11/19/2014, 010 Men B Vaccine Aged Out No longer elig ible based on patient's age to complete this topic Pneumococcal Vaccine Aged Out No long er eligible based on patient's age to complete this topic Insurance [facility] NON PCC
--- OUTSIDE RECORDS SUMMARY | 2024-06-20 10:20 | XMS_ITS | Encounter Summary ---
Author Organization [facility] Address [address] [place] [address] Phone Care Team Providers Care Computing Machine Operator Name Role Phone Unavailable Primary Care Provider Unavailabl e Reason for Visit * Reason Comments Med Refill Encounter Details Date Type Department Care Team (Late st Contact Info) Description 10/22/2018 Refill [facility] - [address] [address] Mercedes Montalvo MD ADHD (attention deficit hyperactivity disorder), combined type Social History Tobacco Use Types [...] as of this encounter Visit Diagnoses Diagnosis ADHD (attention deficit hyperactivity disorder), combined type Attention deficit disorder with hyperactivity documented in this encounter
--- OUTSIDE RECORDS SUMMARY | 2024-06-20 10:20 | XMS_ITS | Encounter Summary ---
Author Organization [employer] Address [address] [facility] 7t [place] [address] Care Team Providers Care Marketing Compliance Manager Name Role Phone Hank Zuleta MD Primary Care Provide r Reason for Visit * Reason Onset Date Comments callback requested 03/03/2024 Encounter Details Date Type Department Care Team ([facility] st Contact Info) Description 03/03/2024 Telephone [facility] MEDICINE [address] [place] [address] Hank Zuleta MD [address] [place], [place] [phone] callback requested Social History Tobacco Use Types Packs/Day Years [...] encounter Miscellaneous Notes * Telephone Encounter - Steve Ahn - 03/03/2024 2:13 PM EST Tc from grandmother requesting a callback from PCP or [place]. Pt is having several apt far away and shewill like different options depend on what PCP says gill states she will like a referral for Pt1 Callback number [phone] documented in this encounter Plan of Treatment Upcoming Encounters Date Type Department Care Team (Late st Contact Info) Description 06/26/2024 2:30 PM EDT Office Visit [facility] MEDICINE [address] [place] [address] Hank Zuleta MD [address] [place] [address] documented as of this encounter Visit Diagnoses Not on filedocumented in this encounter Additional Health Concerns Assessment Noted Time PHQ-9 Depression Total Score: 0 01/17/20 24 2:09 PM EDT documented as of this encounter Care Teams Marketing Compliance Manager Relationship Specialty Start Date End Date Hank Zuleta MD [address] [place] [address] PCP - General Internal Medicine 06/25/18 documented as of this encounter
--- OUTSIDE RECORDS SUMMARY | 2024-06-20 10:20 | XMS_ITS | Clinical Summary ---
Author Organization [facility] Address [address] [place] [address], [place] [address] Care Team Providers Care Flight Nurse Name Role Phone Hank Landa MD Primary Care Provider Unav ailable Allergies No known active allergies Medications lisinopril 10 MG tablet Take 10 mg by mouth 1 (one) time each day 12/11/2020 Active guanFACINE (TENEX) 2 MG tablet TAKE 1 TABLET BY ORAL ROUTE EVERY DAY IN AM AND 1/2 TAB AT BEDTIME 12/11/2020 Active nortriptyline (PAMELOR) 10 MG capsule Take 1 capsule by mouth 1 (one) time each day Active albuterol HFA (ProAir HFA) 108 (90 Base) MCG/ACT inhaler Acti ve Active Problems Problem Noted Date Diagnosed Date Hypertensive disorder 01/10/2021 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 In vocational program. Tried increasing tenex to 2 mg in AM, 0-1 in PM in 07/31 or even 2 mg BID Other secondary hypertension 08/31/2009 Overview (01/10/2021): Onset date 08/31/2009; last addressed on 11/07/2013; sees Dr. Sy; on atenolol 25 mg; sees cardio Tsirka yearly in fall...may wean in 2013. 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 Huerta for many years and also Dr. Archibald. Has had to have neurofibromas removed. Gets regular MRIs of head and lesions. Regular ophtho visits too. Sig learning delays and neurofibromas and beh/ADHD issues. Raised by MGM and Mom (who is also disabled by NF). Bro with same. Switched to adult neuro in 2016, Comfort Rey NP. Immunizations Name Administration Dates Next Due DTP 08/12/1997,05/01/1997,02/20/1997 DTaP 5 12/14/2000,05/06/1999 H1N1 All Forms 02/12/2009 HPV, Quadrivalent 11/07/2013,01/01/2013,10/25/19 13 Hep A, 2 Dose 11/19/2014,11/07/2013 Hep B, Adolescent or Pediatric 08/12/1997,1997,02/20/1997 Hib (PRP-T) 04/17/1999, 8,05/01/1997,02/20 IPV 12/14/2000,199 8,05/01/1997,02/20 Influenza Split 01/01/2013,02/16/2011,01/07/2010 Influenza TIV (IM) 01/12/2009, 8,01/17/2007,04/05 Influenza, Quadrivalent, Pre servative Free 03/23/2017,01/03/2016 Influenza, Quadrivalent, Wit h Preservative 02/02/2015,02/10/2014 MMR 06/29/2000,02/12/1998 Meningococcal MCV4P 11/19/2014,06/22/2009 Tdap 06/22/2009 Varicella 11/10/2002,06/29/2000 Family History Medical History Relation Comments Kidney disease Mother Hypertension Sibling Relation Status Comments Father Alive Mother Alive Sibling Social History Tobacco Use Types Packs/Day Years Used Date Smoking Tobacco: Never Alcohol Use Standard Drinks/Week Comments No 0 (1 standard drink = 0.6 oz pur e alcohol) Sex and Gender Information Value Date Recorded Sex Assigned at Not on file Legal Sex Male 4:54 PM EST Gender Identity Not on file Sexual Orientation Not on file Last Filed Vital Signs Vital Sign Reading Time Taken Comments Blood Pressure 119/60 01/10/2021 2:19 PM EDT Pulse 63 01/10/2021 2:19 PM EDT Temperature - - Respiratory Rate - - Oxygen Saturation 98% 01/10/2021 2:19 PM EDT Inhaled Oxygen Concentration - - Weight 81.8 kg (180 lb 6.4 oz) 01/10/2021 2:19 P M EDT Height 160 cm (5' 3 ) 04/14/2019 12:00 PM EST Body Mass Index 31.96 04/14/2019 12:00 PM EST Plan of Treatment Health Maintenance Due Date Last Done Comments Pneumococcal Vaccine: Pediat rics (0 to 5 Years) and At-Risk Patients (6 to 64 Years) (1 of 2 - PCV) 2002 Influenza Vaccine (#1) 2023 7, 01/03/2016, 02/02/2015, Additional history exists Hepatitis B Vaccine Completed 08/12/1997, 05/01/1997, 02/20/1997 Insurance [place] Care Teams Flight Nurse Relationship Specialty Start Date End Date Hank Landa MD PCP - General 04/26/20
--- OUTSIDE RECORDS SUMMARY | 2024-06-20 10:20 | XMS_ITS | Encounter Summary ---
Author Organization [employer] Address [address] [facility] 7t [place] [address] Care Team Providers Care Hand Brim Ironer Name Role Phone Hank Zuleta MD Primary Care Provide r Reason for Visit * Reason Comments Med Refill Encounter Details Date Type Department Care Team ([facility] st Contact Info) Description 06/16/2024 Refill [facility] MEDICINE [address] [place], [place] [phone] Hank Zuleta MD [address] [place] [address] Attention deficit hyperactivity disorder (ADHD), combined type [...] Description 06/26/2024 2:30 PM EDT Office Visit [facility] MEDICINE [address] [place] [address] Hank Zuleta MD [address] [place] [address] documented as of this encounter Visit Diagnoses Diagnosis Attention deficit hyperactivity disorder (ADHD), combined type documented in this encounter Additional Health Concerns Assessment Noted Time PHQ-9 Depression Total Score: 0 01/17/20 24 2:09 PM EDT documented as of this encounter Care Teams Hand Brim Ironer Relationship Specialty Start Date End Date Hank Zuleta MD [address] [place] [address] PCP - General Internal Medicine 06/25/18 documented as of this encounter
--- OUTSIDE RECORDS SUMMARY | 2024-06-20 10:20 | XMS_ITS | Encounter Summary ---
Author Organization [employer] Address [address] [place] [address] Care Team Providers Care Templer Head Name Role Phone Hank Zuleta MD Primary Care Provide r Reason for Visit * Reason Comments Cough Nasal Congestion Encounter Details Date Type Department Care Team ([facility] st Contact Info) Description 06/05/2024 1:00 PM EST Office Visit [facility] [address] [place] [address] Arabella Aguilar MD [address] [place] [address] Influenza A (Primary Dx); Flu-like symptoms Social History Tobacco Use Types [...] Sign Reading Time Taken Comments Blood Pressure 141/84 06/05/2024 11:26 AM EST Pulse 110 06/05/2024 11:26 AM EST Temperature 37.1 ??C (98.8 ??F) 06/05/2024 11:[address] Respiratory Rate 20 06/05/2024 11:26 AM EST Oxygen Saturation 96% 06/05/2024 11:26 AM EST Inhaled Oxygen Concentration - - Weight 90.7 kg (200 lb) 06/05/2024 11:26 AM EST Height - - Body Mass Index 33.8 01/17/2024 1:50 PM EDT documented in this encounter Progress Notes * Arabella Rodriguez MD - 06/05/2024 1:00 PM EST SUBJECTIVE: Arsh Davison is a 28 y.o. year old male who presents for flu like symptoms . Acute Concerns: Patient reports 2-3 days of productive cough, fever, malaise, body aches denies nausea vomiting or diarrhea Social History Social History Narrative Not on file Patient Active Problem List Diagnosis Anxiety Asthma Attention deficit hyperactivity disorder (ADHD), combined type Developmental delay Other secondary hypertension [place] Mild intermittent asthma Type 1 neurofibromatosis (CMS/HCC) Class 1 obesity due to excess calories with body mass index (BMI) of 33.0 to 33.9 in adult Exercise counseling Routine physical examination Hypertriglyceridemia Influenza A No family history on file. Review of Systems Constitutional: Positive for activity change, appetite change, chills, diaphoresis, fatigue and fever. HENT: Positive for congestion, postnasal drip, rhinorrhea and sore throat. Negative for dental problem, drooling, ear discharge, ear pain, facial swelling, hearing loss, mouth sores, nosebleeds, sinus pressure, sinus pain, sneezing, tinnitus, trouble swallowing and voice change. Respiratory: Positive for cough. Negative for apnea, choking, chest tightness, shortness of breath,wheezing and stridor. Cardiovascular: Negative. OBJECTIVE: Vitals: 06/05/24 1126 BP: (!) 141/84 BP Location: Left arm Patient Position: Sitting BP Cuff Size: Large adult Pulse: 110 Resp: 20 Temp: 98.8 ??F (37.1 ??C) TempSrc: Temporal SpO2: 96% Weight: 200 lb (90.7 kg) Physical Exam Constitutional: Appearance: Normal appearance. Cardiovascular: Rate and Rhythm: Normal rate and regular rhythm. Pulmonary: Effort: Pulmonary effort is normal. Breath sounds: Normal breath sounds. Abdominal: General: Abdomen is flat. Palpations: Abdomen is soft. Musculoskeletal: Right lower leg: No edema. Left lower leg: No edema. Neurological: Mental Status: He is alert. Follow Up: No follow-ups on file. Current Outpatient Medications on File Prior to Visit Medication Sig Dispense Refill guanFACINE (Tenex) 2 MG tablet TAKE 1 TABLET BY MOUTH EVERY DAY IN THE MORNING AND 1/2 TABLET BY MOUTH AT BEDTIME 45 tablet 6 hydrOXYzine HCl (Atarax) 25 MG tablet TAKE 1 TABLET BY MOUTH 3 TIMES EVERY DAY NEEDED FOR ITCHING AND RASH 90 tablet 0 lisinopril 10 MG tablet TAKE 1 TABLET BY MOUTH EVERY DAY IN THE MORNING 90 tablet 1 nortriptyline (Pamelor) 10 MG capsule TAKE 1 CAPSULE BY MOUTH EVERY DAY 30 capsule 3 [DISCONTINUED] ProAir HFA 108 (90 Base) MCG/ACT inhaler TAKE 2 PUFFS BY MOUTH EVERY 4 TO 6 HOURS ASNEEDED No current facility-administered medications on file prior to visit. Problem List Items Addressed This Visit Influenza A - Primary Drink plenty of fluids and rest Acetaminophen As needed Cough syrup prescribed today Albuterol inhaler as needed Relevant Medications oseltamivir (Tamiflu) 75 MG capsule Other Visit Diagnoses Flu-like symptoms Relevant Medications ProAir HFA 108 (90 Base) MCG/ACT inhaler [id number]-[id number] 30-2-10 MG/5ML syrup Other Relevant Orders Influenza A (ID NOW Rapid Molecular) (Completed) Influenza B (ID NOW Rapid Molecular) (Completed) POCT Rapid COVID Ag (Completed) documented in this encounter Miscellaneous Notes * Assessment & Plan Note - Arabella Rodriguez MD - 06/05/2024 12:14 PM EST Associated Problem(s): Influenza A Drink plenty of fluids and rest Acetaminophen As needed Cough syrup prescribed today Albuterol inhaler as needed documented in this encounter Plan of Treatment Upcoming Encounters Date Type Department Care Team (Late st Contact Info) Description 06/26/2024 2:30 PM EDT Office Visit [facility] [address] [place] [address] Hank Zuleta MD [address] [place] [address] documented as of this encounter Procedures Procedure Name Priority Date/Time Associated Diagnosis Comments POCT INFLUENZA B (ID NOW RAPID MOLECULAR) Routine 06/05/2024 11:36 AM EST Flu-like symptoms POCT INFLUENZA A (ID NOW RAPID MOLECULAR) Routine 06/05/2024 11:35 AM EST Flu-like symptoms POCT RAPID COVID ANTIGEN Routine 06/05/2024 11:29 AM EST Flu-like symptoms documented in this encounter Results * Influenza B (ID NOW Rapid Molecular) (06/05/2024 11:36 AM EST) Influenza B Negative Negative, Indeterminate [facility] Swab 06/05/2024 11:3 6 AM EST Arabella Rodriguez MD POINT OF CARE TEST EN TER/EDIT ORDERABLES Final Result Performing Organization Address [facility]/ZIP Co de Phone Number [facility] [address] [place] [phone] * (ABNORMAL) Influenza A (ID NOW Rapid Molecular) (06/05/2024 11:35 AM EST) Influenza A Positive( A) Negative, Indeterminate [facility] Swab 06/05/2024 11:3 5 AM EST us Arabella Rodriguez MD POINT OF CARE TEST ENTER/EDIT ORDERABLES Edited Result - Final Performing Organization Address [facility] de Phone Number [facility] [address] [place] [phone] * POCT Rapid COVID Ag (06/05/2024 11:29 AM EST) Rapid COVID Ag Negative Swab 06/05/2024 11:2 9 AM EST us Arabella Rodriguez MD POINT OF CARE TEST EN TER/EDIT ORDERABLES Final Result documented in this encounter Visit Diagnoses Diagnosis Influenza A- Primary Influenza with other respiratory manifestations Flu-like symptoms documented in this encounter Additional Health Concerns Assessment Noted Time PHQ-9 Depression Total Score: 0 01/17/20 24 2:09 PM EDT documented as of this encounter Care Teams Templer Head Relationship Specialty Start Date End Date Hank Zuleta MD [address] [place] [phone] PCP - General Internal Medicine 06/25/18 documented as of this encounter
--- OUTSIDE RECORDS SUMMARY | 2024-06-20 10:20 | XMS_ITS | Encounter Summary ---
Author Organization [facility] Address [address] [place] [address] Phone Care Team Providers Care Riveter Name Role Phone Unavailable Primary Care Provider Unavailabl e Encounter Details Date Type Department Care Team (Late st Contact Info) Description 08/29/2016 Documentation [facility] [address] [place] [address] Family Medicine, Physician [address] [place], [place] [phone] Social History Tobacco Use Types Packs/Day Years [...]
--- OUTSIDE RECORDS SUMMARY | 2024-06-20 10:20 | XMS_ITS | Encounter Summary ---
Author Organization [facility] Address [address] [place] [phone] Phone Care Team Providers Care Air Brakes Inspector Name Role Phone Unavailable Primary Care Provider Unavailabl e Encounter Details Date Type Department Care Team (Late st Contact Info) Description 07/31/2016 Documentation [facility] [address] [place] [address] Family Medicine, Physician [address] [place], [place] [phone] Social History Tobacco Use Types Packs/Day Years [...]
--- OUTSIDE RECORDS SUMMARY | 2024-06-20 10:20 | XMS_ITS | Encounter Summary ---
Author Organization [facility] Address [address] [place] [phone] Phone Care Team Providers Care Permit Coordinator Name Role Phone Unavailable Primary Care Provider Unavailabl e Encounter Details Date Type Department Care Team (Late st Contact Info) Description 12/24/2015 Documentation [facility] [address] [place] [address] Family Medicine, Physician [address] [place], [place] [phone] Social History Tobacco Use Types Packs/Day Years [...]
[2024-06-20 12:15] LABS: Alanine Aminotransferase 40 U/L (0-40); Albumin Level 4.2 g/dL (3.5-5.0); Alkaline Phosphatase 79 U/L (39-117); Anion Gap 11 (12-20); Aspartate Amino Transferase 18 U/L (5-37); Bilirubin Total 0.5 mg/dL (0.0-1.0); Blood Urea Nitrogen 11 mg/dL (9-16); Calcium 9.3 mg/dL (8.4-10.2); Carbon Dioxide 25 mmol/L (22-29); Chloride 105 mmol/L (96-108); Cholesterol 213 mg/dL (<200); Estimated Glomerular Filt Rate > 60; Glucose Random 89 mg/dL (60-115); HDL Cholesterol 37 mg/dL (>40); LDL Cholesterol Calculated 103 mg/dL (<100); Potassium 4.1 mmol/L (3.3-5.1); Sodium 137 mmol/L (135-145); Total Protein 7.6 g/dL (6.5-8.0); Triglycerides 365 mg/dL (<150)
[2024-06-20 12:30] LABS: TSH reflex Free T4 1.57 uIU/mL (0.32-4.0)
== END 2024-06-20 09:31 | disposition home or self-care (01) ==
LOC: HO.HHCL 09:30
PROVIDERS: Visit Provider Internal Medicine
DX: I15.8 Other secondary hypertension (principal); E78.1 Pure hyperglyceridemia
CPT/HCPCS: 36415; 80053; 80061; 84443

== ENCOUNTER 2024-08-27 12:24 | Outpatient (AMB) | payer MEDICAID, SELFPAY ==
--- NOTE | 2024-08-27 12:49 | MHC.OFFVIS ---
Vital Signs 08/27/24 12:53 Height 5 ft 3 in Weight 184 lb 4.903 oz BMI 32.6 BP 100/70 Blood Pressure Location Lt brachial Position Sitting Pulse 65 Pulse Source Monitor Intake Visit Reasons: 6 mth f/up Intake Note: 6 mth f/up Drafting Layout Worker Required: Yes Drafting Layout Worker Language: Machine Veneer Repairer Name: [email or web address] Accompanied by: Grand Parent Allergies No Known Drug Intolerances Allergy (Unknown, Verified 06/08/24 15:43) NONE Medication List - Last Reconciled 08/27/24 by Jorge Cuellar MD acetaminophen (Tylenol) 650 mg (2 x 325 mg) PO Q6H PRN albuterol sulfate 90 mcg/actuation (ProAir HFA) 2 puffs inhalation Q4-6H PRN guanfacine 2 mg PO ibuprofen 600 mg PO Q6H PRN lisinopril 10 mg PO DAILY HPI Comments Details: Pleasant 28-year-old gentleman here for follow-up. He was previously seen for mild aortic insufficiency seen on echocardiography. He has background of neurofibromatosis. He has hypertension for which he has been on lisinopril with good blood pressure control. Neurofibromatosis can lead to renal artery stenosis and he has been seeing Nephrology and getting follow-up there. He had repeat echocardiogram. This showed normal biventricular function without any significant valvular issues. Previously was noticed to have mild aortic insufficiency. He is denying any chest pain or shortness of breath. He is saying he gets tired and he has gained some weight. He does not exercise regularly. On follow-up he has gained more weight and his mother is concerned that he is tired a lot. We had a detailed discussion about his continued weight gain and the fact that this is affecting him and leading to fatigue. 02/05/2023 he returns for follow-up. Blood pressure is well controlled. Over the last 2 years he has gained approximately 14 lb. He has abdominal obesity. He is saying that he gets tired and short of breath easily. The mother accompanied him as always and added that he does not do any exercise. 08/13/2023: He returns for follow-up. No complaints on follow-up. Blood pressure is well controlled. He has gained more weight and he is 201 lb with a BMI of 36.9. 02/20/24: He is here for follow-up. Clinically stable. He is saying that he is going to gym and trying to exercise. He is continues to be overweight. His weight is 196 lb which is lower than before though because last time he was 201 lb. 08/27/24: He is here for follow-up. Clinically stable. He has lost some weight. Based on our scale he has lost 11 lb. He is not exercising and we discussed again about regular exercise. [facility] Medical History Migraines ADHD Hypertension Surgical History History of eye surgery History of tonsillectomy and adenoidectomy History of excision of mass Family History Maternal Grandmother Hypertension Diabetes Mother Breast cancer Intellectual disability Social History Alcohol intake: never Patient Tobacco Use Status: Never used Tobacco Review of Systems Const Denies chills, Denies fatigue, Denies fever(s), Denies frequent falls, Denies weakness, Denies weight gain and Denies weight loss ENT Denies dizziness Card Denies chest pain, Denies leg edema, Denies lightheadedness, Denies palpitations, Denies dyspnea and Denies dyspnea on exertion Resp Denies cough, Denies dyspnea and Denies dyspnea on exertion GI Denies hematochezia Musc Denies abnormal gait, Denies muscle weakness, Denies numbness, Denies radiating pain into limb and Denies tingling Neuro Denies abnormal gait, Denies dizziness, Denies frequent falls, Denies numbness, Denies tingling and Denies weakness Endo Denies fatigue and Denies palpitations Physical Exam Vital Signs: Last Vital Signs Pulse 65 08/27/24 12:53 BP 100/70 08/27/24 12:53 BMI result Body Mass Index 32.6 GENERAL APPEARANCE: in no acute distress, well developed, overweight. NECK/THYROID: no carotid bruit, no jugular venous distention. SKIN: Neurofibromas noticed. HEART: no murmurs, regular rate and rhythm, S1, S2 normal. LUNGS: clear to auscultation bilaterally. ABDOMEN: Soft, nontender. Abdominal obesity. EXTREMITIES: no clubbing, cyanosis, or edema. PERIPHERAL PULSES: equal. NEUROLOGIC: nonfocal, alert and oriented. PSYCH: mood/affect full range. Office Procedures EKG Details: Sinus rhythm 65 beats per minute, normal ECG, QTC 353 milliseconds [id number], Complete Assessment & Plan Assessment & Plan (1) Essential hypertension: Code(s): I10 - Essential (primary) hypertension Category: Medical Plan Pleasant 28 year gentleman who is here for follow-up. He has neurofibromatosis and at some stage had some aortic insufficiency. Last echocardiography did not show any aortic insufficiency. Blood pressure is reasonably controlled currently. No symptoms. I have advised him to exercise regularly and lose some weight. He will see us back in 6 months. Thank you for allowing me to participate in the care of your patient. Please feel free to contact me if you have any questions. Coding Level of Care Code Est Pt Level 3 (39801) Diagnoses Essential hypertension I10 CPT Codes EKG - CPT: 51567-[id number], Complete ([id number])
[2024-08-27 12:53] VITALS: BP 100/70; PULSE 65; BMI 32.6
--- OUTSIDE RECORDS SUMMARY | 2024-08-27 12:53 | XMS_ITS | Encounter Summary ---
Author Organization [facility] Address [address] [place] [address] Phone Care Team Providers Care Security Control Center Operator Name Role Phone Unavailable Primary Care Provider Unavailabl e Reason for Visit * Reason Comments Med Refill Encounter Details Date Type Department Care Team (Late st Contact Info) Description 10/22/2018 Refill [facility] - [address] [address] Mercedes Montalvo MD ADHD (attention deficit hyperactivity [...]
--- OUTSIDE RECORDS SUMMARY | 2024-08-27 12:53 | XMS_ITS | Encounter Summary ---
Author Organization [facility] Address [address] [place] [address] Phone Care Team Providers Care Water/Wastewater Project Engineer Name Role Phone Unavailable Primary Care Provider Unavailabl e Encounter Details Date Type Department Care Team (Late st Contact Info) Description 11/30/2016 Conversion Encounter [facility] - [address] [address] Social History Tobacco Use Types Packs/Day Years [...]
--- OUTSIDE RECORDS SUMMARY | 2024-08-27 12:53 | XMS_ITS | Encounter Summary ---
Author Organization [facility] Address [address] [place] [address] Phone Care Team Providers Care Manager Administrative Name Role Phone Unavailable Primary Care Provider Unavailabl e Encounter Details Date Type Department Care Team (Late st Contact Info) Description 08/21/2012 Documentation [facility] [address] [place] [address] Family Medicine, Physician [address] [place], [place] [phone] Social History Tobacco Use Types Packs/Day Years [...]
--- OUTSIDE RECORDS SUMMARY | 2024-08-27 12:53 | XMS_ITS | Encounter Summary ---
Author Organization [facility] Address [address] [place] [phone] Phone Care Team Providers Care Dethistler Operator Name Role Phone Unavailable Primary Care Provider Unavailabl e Encounter Details Date Type Department Care Team (Late st Contact Info) Description 08/29/2016 Documentation [facility] [address] [place] [address] Family Medicine, Physician [address] [place], [place] [phone] Social History Tobacco Use Types Packs/Day Years [...]
--- OUTSIDE RECORDS SUMMARY | 2024-08-27 12:53 | XMS_ITS | Encounter Summary ---
Author Organization [facility] Address [address] [place] [address] Phone Care Team Providers Care Fixing Machine Operator Name Role Phone Unavailable Primary Care Provider Unavailabl e Encounter Details Date Type Department Care Team (Late st Contact Info) Description 05/02/2012 Documentation [facility] [address] [place] [address] Family Medicine, Physician [address] [place], [place] [phone] Social History Tobacco Use Types Packs/Day Years [...]
--- OUTSIDE RECORDS SUMMARY | 2024-08-27 12:53 | XMS_ITS | Encounter Summary ---
Author Organization [employer] Address [address] [place] [address] Care Team Providers Care Municipal Court Judge Name Role Phone Hank Zuleta MD Primary Care Provide r Reason for Visit * Reason Onset Date Comments callback requested 03/03/2024 Encounter Details Date Type Department Care Team ([facility] Contact Info) Description 03/03/2024 Telephone [facility] [address] [place] [address] Hank Zuleta MD [address] [place] [address] callback requested Social History Tobacco Use Types [...] encounter Miscellaneous Notes * Telephone Encounter - Tenxochiltjohnathan Ahn - 03/03/2024 2:13 PM EST Tc from grandmother requesting a callback from PCP or [place]. Pt is having several apt far away and shewill like different options depend on what PCP says gill states she will like a referral for Pt1 Callback number [phone] documented in this encounter Plan of Treatment Not on file documented as of this encounter Visit Diagnoses Not on filedocumented in this encounter Additional Health Concerns Assessment Noted Time PHQ-9 Depression Total Score: 0 01/17/20 24 2:09 PM EDT documented as of this encounter Care Teams Municipal Court Judge Relationship Specialty Start Date End Date Hank Zuleta MD [address] [place] [phone] PCP - General Internal Medicine 06/25/18 documented as of this encounter
--- OUTSIDE RECORDS SUMMARY | 2024-08-27 12:53 | XMS_ITS | Encounter Summary ---
Author Organization [facility] Address [address] [place] [phone] Phone Care Team Providers Care Radiographer Cardiac Catheterization Name Role Phone Unavailable Primary Care Provider Unavailabl e Encounter Details Date Type Department Care Team (Late st Contact Info) Description 08/15/2016 Documentation [facility] [address] [place] [address] Family Medicine, Physician [address] [place], [place] [phone] Social History Tobacco Use Types Packs/Day Years [...]
--- OUTSIDE RECORDS SUMMARY | 2024-08-27 12:53 | XMS_ITS | Encounter Summary ---
Author Organization [employer] Address [address] [facility] [address] [place] [address] Care Team Providers Care Upper Cutter Machine Name Role Phone Hank Zuleta MD Primary Care Provide r Encounter Details Date Type Department Care Team ([facility] st Contact Info) Description 2022 Telephone [facility] [address] [place], [place] [phone] Hank Zuleta MD [address] [place], [place] [phone] Social History Tobacco Use Types Packs/Day Years [...] documented as of this encounter Care Teams Upper Cutter Machine Relationship Specialty Start Date End Date Hank Zuleta MD [address] [place], [place] [phone] PCP - General Internal Medicine 06/25/18 documented as of this encounter
--- OUTSIDE RECORDS SUMMARY | 2024-08-27 12:53 | XMS_ITS | Clinical Summary ---
Author Organization [employer] Address [address] [place] [address] Care Team Providers Care Housing Property Manager Name Role Phone Hank Zuleta MD Primary Care Provide r Allergies No known active allergies Medications nortriptyline (Pamelor) 10 MG capsule TAKE 1 CAPSULE BY MOUTH EVERY DAY 30 capsule 3 07/11/19 23 Active hydrOXYzine HCl (Atarax) 25 MG tabletIndications :Attention deficit hyperactivity disorder (ADHD), combined type TAKE 1 TABLET BY MOUTH 3 TIMES EVERY DAY NEEDED FOR ITCHING AND RASH 90 tablet 09/06/19 24 Active lisinopril 10 MG tabletIndications :Other secondary hypertension TAKE 1 TABLET BY MOUTH EVERY DAY IN THE MORNING 90 tablet 1 04/21/19 25 Active guanFACINE (Tenex) 2 MG tabletIndications :Attention deficit hyperactivity disorder (ADHD), combined type TAKE 1 TABLET BY MOUTH EVERY DAY IN THE MORNING AND 1/2 TABLET BY MOUTH AT BEDTIME 45 tablet 6 06/18/19 25 Active fish oil ([place]-3) 500 MG capsuleIndication s:Hypertriglyceri demia Take 1 capsule (500 mg) by mouth with breakfast, with lunch, and with evening meal. 90 capsule 5 06/27/19 25 Active Ventolin HFA 108 (90 Base) MCG/ACT inhalerIndication s:Flu-like symptoms INHALE 2 PUFFS BY MOUTH EVERY 4 HOURS IF NEEDED FOR WHEEZING. 18 g 08/01/19 25 Active Tirzepatide-Weigh t Management (Zepbound) 5 MG/0.5ML solution auto-injector Inject 0.5 mL (5 mg) under the skin every 7 (seven) days. 2 mL 08/08/19 25 Active Tirzepatide-Weigh t Management (Zepbound) 2.5 MG/0.5ML solution auto-injectorIndi cations:Class 1 obesity due to excess calories with serious comorbidity and body mass index (BMI) of 33.0 to 33.9 in adult Inject 0.5 mL (2.5 mg) under the skin 1 (one) time per week. 0.5 mL 1 06/27/19 25 025 Discontinued(Do se adjustment) Ventolin HFA 108 (90 Base) MCG/ACT inhalerIndication s:Flu-like symptoms INHALE 2 PUFFS EVERY 4 HOURS IF NEEDED FOR WHEEZING. 18 g 07/02/19 25 025 Discontinued Active Problems Problem Noted Date Diagnosed Date Persistent cough 06/20/2024 Assessment & Plan (06/20/2024 10:21 AM EST): Patient was pressure, I advised to drink plenty of fluids and rest I prescribed for patient Tessalon Perles for cough He may continue using his albuterol inhaler 2 puffs every 6 hours as needed Influenza A 06/05/2024 Assessment & Plan (06/05/2024 12:14 PM EST): Drink plenty of fluids and rest Acetaminophen As needed Cough syrup prescribed today Albuterol inhaler as needed Hypertriglyceridemia 12/19/2022 Assessment & Plan (06/26/2024 3:08 PM EDT): Pt here for a follow up Lab Results Component Value Date TRIG 365 (H) 06/20/2024 TRIG 272 (H) 12/14/2022 CHOL 213 (H) 06/20/2024 CHOL 205 (H) 12/14/2022 LDLCHOLCAL 103 (H) 06/20/2024 LDLCHOLCAL 116 (H) 12/14/2022 HDL 37 (L) 06/20/2024 HDL 35 (L) 12/14/2022 Plan: Counseled about diet and exercise Start Fish Oil TID Assessment & Plan (01/17/2024 1:51 PM EDT): [...] 33.9 in adult 06/20/2022 Assessment & Plan (06/26/2024 3:34 PM EDT): Patient has been counseled and educated about diet and exercise. Personal goal of weight loss discussed Pt has been unable to loose weight. Pt's mother is requesting a trial of GLP1 Pt would not be a good candidate for phentermine due to Hx of aortic insufficiency and neurofibromatosis I have discussed with his mother and patient the theoretical risk of neuroendocrine tumors from GLP1s Pt has no Hx of Medullary thyroid cancer or MEN, no Hx of pancreatitis either Dietary Recommendations: Fruits, vegetables, whole grains, protein foods, and fat-free or low-fat dairy products are healthy choices. Eat different types of protein foods in your diet. This can include seafood, lean meats, poultry, beans, peas, lentils, nuts, seeds, soy products, and eggs. Limit foods and beverages higher in added sugars, saturated fat, and sodium. Exercise Recommendations: At least 150 minutes of moderate-intensity physical activity per week, or an equivalent combination of moderate- and vigorous-intensity activity Assessment & Plan (01/17/2024 1:50 PM EDT): [...] Routine physical examination 06/20/2022 Assessment & Plan (06/26/2024 3:06 PM EDT): Patient's physical exam aside from obesity is otherwise within normal limits Assessment & Plan (06/21/2023 1:30 PM EST): [...] even 2 mg BID Assessment & Plan (06/26/2024 3:07 PM EDT): Pt here for a follow up used to go to [facility] and see Dr Mercedes Montalvo. Currently his condition remains unchanged I have continued to prescribe his Guanfacine 2 mg 1 tab po in AM and 1/2 tab at bedtime which have been helpful Doing well per mother's report. Assessment & Plan (06/21/2023 2:54 PM EST): Used to go to [facility] and see Dr Mercedes Montalvo. Currently his condition remains unchanged I have continued to prescribe his Guanfacine 2 mg 1 tab po in AM and 1/2 tab at bedtime which have been helpful Doing well per mother's report. The only thing they worry about is how he is not physically active. Assessment & Plan (12/19/2022 11:00 AM EDT): Used to go to [facility] and see Dr Mercedes Montalvo. Currently [...] fall...may wean in 2013. Assessment & Plan (06/26/2024 3:10 PM EDT): Pt here for a f/u BP controlled Pt with secondary hypertension in the setting of neurofibromatosis Pt is on Lisinopril 20 mg po daily,by Jewel Supervisor, last seen 02/20/2024 [facility] Lab Results Component Value Date NA 137 06/20/2024 NA 135 12/14/2022 K 4.1 06/20/2024 K 3.9 12/14/2022 CL 105 06/20/2024 CL 102 12/14/2022 BUN 11 06/20/2024 BUN 9 12/14/2022 CREATININE 0.76 06/20/2024 CREATININE 0.75 12/14/2022 was within normal limits Pt sees Dr Maguire and had a recent Renal Doppler and Abdominal MRA that were unrevealing. Assessment & Plan (01/17/2024 1:50 PM EDT): Pt here for a f/u BP controlled Pt with secondary hypertension in the setting of neurofibromatosis Pt is on Lisinopril 20 mg po daily,by Jewel Supervisor, last seen 08/13/2023 [facility] 12/14/2022 was within [...] is on Lisinopril 20 mg po daily,by Jewel Supervisor, last seen 01/2023 BMP 12/14/2022 was within [...] is on Lisinopril 20 mg po daily,by Jewel Supervisor BMP 11/09/2020 was within normal limits, will repeat Pt sees Dr Maguire and had a recent Renal Doppler and Abdominal MRA that were unrevealing. Dr. Maguire recommended pt be seen by Cardiology. Last seen on 02/09/[address] Paredes who recommended yearly ECHOs for his mild aortic insufficiency and f/u with renal Encounters Date Type Department Care Team Description 08/15/2024 Telephone [facility] [address] [place] [address] Hank Zuleta MD Prior Authorization 08/08/2024 Telephone [facility] [address] [place] [address] Hank Zuleta MD Appointment Confirmation 08/06/2024 Refill [facility] [address] [place] [address] Hank Zuleta MD 07/30/2024 Refill [facility] [address] [place] [address] Hank Zuleta MD Flu-like symptoms 06/30/2024 Telephone [facility] [address] [place] [address] Marla Meza LPN Prior Auth Prescription 06/29/2024 Refill [facility] [address] [place] [address] Hank Zuleta MD Flu-like symptoms 06/27/2024 Population Health Risk Score [facility] (C3) Department [address] [place] [phone] Provider, Population Health Generic 06/26/2024 2:30 PM EDT Office Visit [facility] [address] [facility] [place] [address] Hank Zuleta MD Routine physical examination (Primary Dx); Class 1 obesity due to excess calories with serious comorbidity and body mass index (BMI) of 33.0 to 33.9 in adult; Type 1 neurofibromatosis (CMS/HCC); Attention deficit hyperactivity disorder (ADHD), combined type; Hypertriglyceridemia; Other secondary hypertension; Dietary counseling; Exercise counseling 06/26/2024 Travel 06/20/2024 9:00 AM EST Office Visit [facility]ALK[facility] [address] [address] Arabella Aguilar MD Persistent cough (Primary Dx) 06/16/2024 Patient Outreach [facility] [address] [place] [phone] Hank Zuleta MD Pre-visit Planning (Pre-visit planning - LVM ) 06/16/2024 Refill [facility] [address] [place] [address] Hank Zuleta MD Attention deficit hyperactivity disorder (ADHD), combined type 06/13/[address] [address] Hank Zuleta MD Chart Prep 06/08/2024 Orders Only [facility] External Provider, [facility] 06/05/2024 1:00 PM EST Office Visit [facility] [address] [address] Arabella Aguilar MD Influenza A (Primary Dx); Flu-like symptoms 06/05/2024 Refill [facility] [address] [address] Arabella Aguilar MD Flu-like symptoms from Last 3 Months Immunizations Immunization Administration Dates Next Due DTP 08/12/1997,05/01/1997,02/20/1997 DTaP, [...] ACYW-135 11/19/2014,06/23/19 10 Moderna Covid-19 Vaccine 12+ 03/09/2021,07/14/19,06/15/2020 Novel [id number], all formulations 02/12/2009 Tdap 06/22/2009 Varicella 11/10/2002,06/29/2000 [...] housing situation today? I have dominic yoder 06/26/[address] you li ve. Do you have problems with any of the following? None of the above 06/26/2024 Food Insecurity Answer Date Recorded Within the past 12 months, y ou worried that your food would run out before you got money to buy more: Never True 06/26/2024 Within the past 12 months,th e food you bought just didn't last and you didn't have enough money to get more: Never True Transportation Answer Date Recorded In the past 12 months, has l ack of transportation kept you from medical appts, meetings, work or from getting things needed for daily living? No 06/26/2024 Utilities Answer Date Recorded In the past 12 months, has t he [employer], gas, oil or water company threatened to shut off services in your home? No 06/26/2024 Depression Answer Date Recorded Patient Health Questionnaire-2 Score 0 01/17/2024 Internet Access Answer Date Recorded Internet Access Q1 No 06/26/2024 Internet Access Q2 Internet/Wi-Fi access is not available where I live 06/26/2024 Sex and Gender Information Value Date Recorded Sex Assigned at Male 02/13/2022 10:17 AM EDT Legal Sex Male 10:17 AM EDT Gender Identity Male 02/13/2022 10:17 AM EDT Sexual Orientation Straight 02/13/2022 10 :17 AM EDT Last Filed Vital Signs Vital Sign Reading Time Taken Comments Blood Pressure 118/70 06/26/2024 2:19 PM EDT Pulse 70 06/26/2024 2:19 PM EDT Temperature 36.4 ??C (97.5 ??F) 06/26/2024 2:19 PM ED T Respiratory Rate 20 06/26/2024 2:19 PM EDT Oxygen Saturation 98% 06/26/2024 2:19 PM EDT Inhaled Oxygen Concentration - - Weight 89.7 kg (197 lb 12.8 oz) 06/26/2024 2:19 PM EDT Height 163.8 cm (5' 4.5 ) 06/26/2024 2:19 PM EDT Body Mass Index 33.43 06/26/2024 2:19 PM EDT Plan of Treatment Health Maintenance Due Date Last Done Comments HIV Screening 1996 Family Planning (PISQ) 11/28/2011 Hepatitis C Screening 2014 Pneumococcal Vaccine: Pediatrics (0 to 5 Years) and At-Risk Patients (6 to 49) Years) (1 of 2 - PCV) 11/28/2015 DTaP/Tdap/Td Vaccines (7 - Td or Tdap) 06/23/2019 06/22/2009, 12/14/2000, 05/06/1999, Additional history exists Depression Screening 01/16/2025 01/17/2024, 01/17/20 24 Alcohol/Substance Use Screening 06/26/2025 06/26/2024 SDOH Screening 06/26/2025 06/26/2024 Tobacco Screening 06/26/2025 06/26/2024 Lipid Panel 06/20/2029 06/20/2024, 12/14/2022 Zoster Vaccines (1 of 2) 2046 [...] Procedure Name Priority Date/Time Associated Diagnosis Comments COMPREHENSIVE METABOLIC PANEL Routine 06/20/2024 9:32 AM EST Other secondary hypertension LIPID PANEL, STANDARD Routine 06/20/2024 9:32 AM EST Hypertriglyceridemia TSH W/REFLEX TO FT4 Routine 06/20/2024 9 :32 AM EST Hypertriglyceridemia SARS COV2/INFLUENZA A/B AND RSV RNA QL NAAT Routine 06/08/2024 4:34 PM EST XR CHEST 2 VIEWS Routine 06/08/2024 4:26 PM EST POCT INFLUENZA B (ID NOW RAPID MOLECULAR) Routine 06/05/2024 11:36 AM EST Flu-like symptoms POCT INFLUENZA A (ID NOW RAPID MOLECULAR) Routine 06/05/2024 11:35 AM EST Flu-like symptoms POCT RAPID COVID ANTIGEN Routine 06/05/2024 11:29 AM EST Flu-like symptoms from Last 3 Months Results * TSH W/Reflex to FT4 (06/20/2024 9:32 AM EST) TSH reflex Free T4 1.57 0.32 - 4.0 uIU/mL [facility] Blood Venous blood specimen / Unknown 06/20/2024 9:32 AM EST 06/20/2024 11:30 AM EST us Hank Lee MD LAB BLOOD ORDERABLES Final Result [facility] [address] [place] [phone] * (ABNORMAL) Lipid Panel, Standard (06/20/2024 9:32 AM EST) Triglycerides 365(H) <150 mg/dL [facility] Comment:Desirable Triglyceri de: less than 150 mg/dLBorderline High Triglyceride 150-199 mg/dLHigh Triglyceride: 200-499 mg/dLVery High Triglyceride: greater than or equal to 5OO mg/dL Cholesterol 213(H) <200 mg/dL [facility] Comment:Desirable Cholestero l: less than 200 mg/dLBorderline High Cholesterol: 200-239 mg/dLHigh Cholesterol: greater than 239 mg/dL LDL Cholesterol Calculated 103(H) <100 mg/dL [facility] Comment:Desirable LDL: less than 100 mg/dLNear Optimal/Above Optimal LDL: 110- 129 mg/dLBorderline High LDL: 130-159 mg/dLHigh LDL: 160-189 mg/dLVery High LDL: greater than or equal to 190 mg/dL HDL Cholesterol 37(L) >40 mg/dL [facility] Comment:Desirable HDL: great er than 40 mg/dL Note: This HDL assay may give artificially low results in patients with liver disease. Blood Venous blood specimen / Unknown 06/20/2024 9:32 AM EST 06/20/2024 11:30 AM EST Hank Lee MD LAB BLOOD ORDERABLES Final Result Performing Organization Address City/[facility] Co de Phone Number [facility] [address] [place] [address] [phone] * (ABNORMAL) Comprehensive Metabolic Panel (06/20/2024 9:32 AM EST) Sodium 137 135 - 145 mmol/L [facility] Potassium 4.1 3.3 - 5.1 mmol/L [facility] Chloride 105 96 - 108 mmol/L [facility] Carbon Dioxide 25 22 - 29 mmol/L [facility] Anion Gap 11(L) 12 - 20 [facility] Urea Nitrogen (BUN) 11 9 - 16 mg/dL [facility] Creatinine, Serum 0.76 0.5 - 1.4 mg/dL [facility] Estimated Glomerular Filt Rate >60 [facility] Comment:Chronic Kidney Disea se: Estimated GFR < 60 mL/min/1.35d5Taxpvw Kidney Disease: Estimated GFR < 15 mL/min/1.73m2 Glucose 89 60 - 115 mg/dL [facility] Calcium 9.3 8.4 - 10.2 mg/dL [facility] Bilirubin, Total 0.5 0.0 - 1.0 mg/dL [facility] Aspartate Amino Transferase 18 5 - 37 U/L [facility] Alanine Aminotransferase 40 0 - 40 U/L [facility] Total Protein 7.6 6.5 - 8.0 g/dL [facility] Albumin Level 4.2 3.5 - 5.0 g/dL [facility] Alkaline Phosphatase 79 39 - 117 U/L [facility] Blood Venous blood specimen / Unknown 06/20/2024 9:32 AM EST 06/20/2024 11:30 AM EST Hank Lee MD LAB BLOOD ORDERABLES Final Result Performing Organization Address City/State/[facility] de Phone Number [facility] [address] [place] [phone] * (ABNORMAL) SARS-CoV-2 RNA, Influenza A/B, and RSV RNA, Ql NAAT (06/08/2024 4:34 PM EST) Influenza A PCR POSITIVE(A) Negative [facility] Influenza B PCR NEGATIVE Negative [facility] Resp Syncy Virus RNA Qual PCR NEGATIVE Negative [facility] SARS COV2 PCR NEGATIVE Negative [facility] Comment:All test results mus t [...] use by authorized laboratories.Testing performed on the [email or web address] GeneXpert utilizingreal-time RT-PCR.All SARS CoV2 and positive influenza A/B results arereported to [facility]. 06/08/2024 4:34 PM EST 06/08/2024 4:37 PM EST us Generic External Data Provider LAB MICROBIOLOGY - GENERAL ORDERABLES Final Result Performing Organization Address [facility] de Phone Number [facility] [address] [place] [phone] * XR Chest 2 Views (06/08/2024 4:26 PM EST) Anatomical Region Laterality Modality Chest Radiographic Dunia ging 06/08/2024 4:26 PM EST Narrative 06/08/2024 4:27 PM EST ? [facility] ?[address] ?[place] [address] ?XRay Report ? Signed ? Patient: Alona Davison,Arsh ?MR#: M ?? [id number] ? : 1995 ?Acct:[id number] ? Age/Sex: 28 / M ?ADM Date: 06/08/24 ? Loc: HO.ED ? Attending Dr: ? Ordering Physician: Jing Don CNP ?? Date of Service: 06/08/24 ?? Procedure(s): XR chest 2V ?? Accession Number(s): [id number] ? cc: Jing Don CNP; Hank Levy [...] ? DD/ 25 ? TD/TT: 06/08/241625 ? Test Driver: ? Procedure Note Froylan Gimenez - 06/08/2024 [place] [address] XRay Report Signed Patient: Kellie Mulligan#: M [id number] : 1995Acct:[id number] Age/Sex: 28 / MADM Date: 06/08/24 Loc: HO.ED Attending Dr: Ordering Physician: Jing Don CNP Date of Service: 06/08/24 Procedure(s): XR chest 2V Accession Number(s): [id number] cc: Jing Don CNP; Hank Levy MD CLINICAL HISTORY: cough, fevers 2 view chest x-ray Comparison: CR/SR - XR CHEST 2V - 09/19/23 15:07 EDT CR - XR CHEST 1V - 4/30/21 14:35 EDT Findings: Mild patchy bilateral perihilar and basilar opacity. Heart size is normal. No acute fracture. IMPRESSION: Mild atypical pneumonia. This document has been electronically signed by: Jac Lee MD on 06/08/2024 16:26:27 Dictated By: Jac Lee MD Signed By: <Electronically signed by Jac Lee MD in OV> 06/08/24 1627 DD/ 1626 TD/TT: 06/08/24 1626 Test Driver: [facility] External Provider IMG XR PROCEDURES Final Result * Influenza B (ID NOW Rapid Molecular) (06/05/2024 11:36 AM EST) [facility] Influenza B Negative Negative, Indeterminate [facility] Swab 06/05/2024 11:3 6 AM EST Result [facility] Arabella Rodriguez MD POINT OF CARE TEST EN TER/EDIT ORDERABLES Final Result Performing Organization Address City/[facility]/ZIP Co de Phone Number [facility] [address] [place] [phone] * (ABNORMAL) Influenza A (ID NOW Rapid Molecular) (06/05/2024 11:35 AM EST) [facility] Influenza A Positive( A) Negative, Indeterminate [facility] Swab 06/05/2024 11:3 5 AM EST Arabella Rodriguez MD POINT OF CARE TEST ENTER/EDIT ORDERABLES Edited Result - Final Performing Organization Address [facility]/ZIP Co de Phone Number [facility] [address] [place] [phone] * POCT Rapid COVID Ag (06/05/2024 11:29 AM EST) [facility] Rapid COVID Ag Negative Swab 06/05/2024 11:2 9 AM EST Arabella Rodriguez MD POINT OF CARE TEST EN TER/EDIT ORDERABLES Final Result from Last 3 Months Insurance [facility] C3 Care Teams Housing Property Manager Relationship Specialty Start Date End Date Hank Zuleta MD [address] [place] [address] [place] [address] PCP - General Internal Medicine 06/25/18
--- OUTSIDE RECORDS SUMMARY | 2024-08-27 12:53 | XMS_ITS | Encounter Summary ---
Author Organization [facility] Address [address] [place] [phone] Phone Care Team Providers Care Clamp Operator Name Role Phone Unavailable Primary Care Provider Unavailabl e Encounter Details Date Type Department Care Team (Late st Contact Info) Description 12/24/2015 Documentation [facility] [address] [place] [address] Family Medicine, Physician [address] [place], [place] [phone] Social History Tobacco Use Types Packs/Day Years [...]
--- OUTSIDE RECORDS SUMMARY | 2024-08-27 12:53 | XMS_ITS | Encounter Summary ---
Author Organization [facility] Address [address] [place] [phone] Phone Care Team Providers Care Chauffeur Motorbus Name Role Phone Unavailable Primary Care Provider Unavailabl e Encounter Details Date Type Department Care Team (Late st Contact Info) Description 09/17/2014 Documentation [facility] [address] [place] [address] Family Medicine, Physician [address] [place], [place] [phone] Social History Tobacco Use Types Packs/Day Years [...]
--- OUTSIDE RECORDS SUMMARY | 2024-08-27 12:53 | XMS_ITS | Clinical Summary ---
Author Organization [facility] Facility Address [address] [place] [address], [place] [address] Care Team Providers Care Facilities Management Executive Name Role Phone Hank Landa MD Primary [...] neuro in 2016, Comfort Rey NP. Immunizations Immunization Administration Dates Next Due DTP 08/12/1997,05/01/1997,02/20/1997 DTaP 5 12/14/2000,05/06/1999 H1N1 All Forms 02/12/2009 HPV, Quadrivalent 11/07/2013,01/01/2013,10/25/19 13 Hep A, 2 Dose 11/19/2014,11/07/2013 Hep B, Adolescent or Pediatric 08/12/1997,1997,02/20/1997 Hib (PRP-T) 04/17/1999, 8,05/01/1997,02/20 IPV 12/14/2000, 8,05/01/1997,02/20 Influenza Split 01/01/2013,02/16/2011,01/07/2010 Influenza TIV (IM) [...] Due Date Last Done Comments Pneumococcal Vaccine: Peds ( 0 to 5 Years) and At-Risk Patients (6 to 49 Years) (1 of 2 - PCV) 11/28/2015 Influenza Vaccine (Season Ended) 2024 03/23/2017, 01/03/2016, 02/02/2015, Additional history exists Hepatitis B Vaccine Completed 08/12/1997, 05/01/1997, 02/20/1997 Insurance Medicaid [place] Medicaid [place] Care Teams Facilities Management Executive Relationship Specialty Start Date End Date Hank Landa MD PCP - General 04/26/20
--- OUTSIDE RECORDS SUMMARY | 2024-08-27 12:53 | XMS_ITS | Clinical Summary ---
Author Organization [facility] Address [address] [place] [phone] Phone Care Team Providers Care Multifocal Button Grinder Name Role Phone Unavailable Primary Care Provider [...] Developmental delay Other Family history of Sudden /[place] under age 55, No family history of *CVA/Stroke, Family history of *Dental caries, No family history of *Sudden /[place] under 55, No family history of *Heart [...] patient's age to complete this topic Insurance [facility] NON PCC
--- OUTSIDE RECORDS SUMMARY | 2024-08-27 12:53 | XMS_ITS | Encounter Summary ---
Author Organization [facility] Address [address] [place] [phone] Phone Care Team Providers Care Transmissions Systems Operator Name Role Phone Unavailable Primary Care Provider Unavailabl e Reason for Visit * Reason Comments Med Refill Encounter Details Date Type Department Care Team (Late st Contact Info) Description 01/31/2018 Refill [facility] - [address] [phone] Mercedes Montalvo MD Mild intermittent asthma without [...]
--- OUTSIDE RECORDS SUMMARY | 2024-08-27 12:53 | XMS_ITS | Encounter Summary ---
Author Organization [facility] Address [address] [place] [phone] Phone Care Team Providers Care Production Control Scheduler Name Role Phone Unavailable Primary Care Provider Unavailabl e Encounter Details Date Type Department Care Team (Late st Contact Info) Description 07/30/2012 Documentation [facility] [address] [place] [address] Family Medicine, Physician [address] [place], [place] [phone] Social History Tobacco Use Types Packs/Day Years [...]
--- OUTSIDE RECORDS SUMMARY | 2024-08-27 12:53 | XMS_ITS | Encounter Summary ---
Author Organization [employer] Address [address] [place] [address] Care Team Providers Care Regional Flatbed Truck Driver Name Role Phone Hank Zuleta MD Primary Care Provide r Reason for Visit * Reason Comments Med Refill Encounter Details Date Type Department Care Team ([facility] st Contact Info) Description 04/10/2023 Refill [facility] [address] [place], [place] [phone] Hank Zuleta MD [address] [place], [place] [phone] Attention deficit hyperactivity disorder (ADHD), combined type [...] documented as of this encounter Care Teams Regional Flatbed Truck Driver Relationship Specialty Start Date End Date Hank Zuleta MD [address] [place] [address] PCP - General Internal Medicine 06/25/18 documented as of this encounter
--- OUTSIDE RECORDS SUMMARY | 2024-08-27 12:53 | XMS_ITS | Encounter Summary ---
Author Organization [facility] Address [address] [place] [phone] Phone Care Team Providers Care Spray Blender Name Role Phone Unavailable Primary Care Provider Unavailabl e Encounter Details Date Type Department Care Team (Late st Contact Info) Description 07/31/2016 Documentation [facility] Family Medicine [address] [place] [address] Family Medicine, Physician [address] [place], [place] [phone] Social History Tobacco Use Types Packs/Day Years [...]
== END 2024-08-27 13:19 | disposition home or self-care (01) ==
LOC: HO.HCS 12:24
PROVIDERS: PCP Internal Medicine; Visit Provider Internal Medicine Cardiovascular Disease
DX: I10 Essential (primary) hypertension (principal)
CPT/HCPCS: 93010; 99213

== ENCOUNTER → 2024-08-27 12:24 | Outpatient (BNVA) | payer MEDICAID, SELFPAY | PROVIDERS: PCP Internal Medicine; Visit Provider Internal Medicine Cardiovascular Disease | DX: I10 Essential (primary) hypertension (principal); R94.30 Abnormal result of cardiovascular function study, unspecified | CPT/HCPCS: 93005; 99212 ==

== ENCOUNTER 2025-02-16 12:46 | Outpatient (AMB) | payer MEDICAID, SELFPAY ==
[2025-02-16 12:58] VITALS: BP 90/64; PULSE 82; BMI 31.9
--- NOTE | 2025-02-16 12:58 | MHC.OFFVIS ---
Vital Signs 02/16/25 12:58 Height 5 ft 3 in Weight 180 lb 5.41 oz BMI 31.9 BP 90/64 Blood Pressure Location Lt brachial Position Sitting Pulse 82 Pulse Source Pulse Oximeter Intake Visit Reasons: 6 mth f/up Valve And Regulator Repairer Required: Yes Valve And Regulator Repairer Language: Statue Maker Name: eulalio mast [id number] Automatic Pinsetter Adjuster: Automatic Pinsetter Adjuster Present Allergies No Known Drug Intolerances Allergy (Unknown, Verified 02/16/25 13:01) NONE Medication List - Last Reconciled 02/16/25 by Christelle Chacon NP-C acetaminophen (Tylenol) 650 mg (2 x 325 mg) PO Q6H PRN albuterol sulfate 90 mcg/actuation (ProAir HFA) 2 puffs inhalation Q4-6H PRN guanfacine 2 mg PO ibuprofen 600 mg PO Q6H PRN lisinopril 10 mg PO DAILY HPI HPI 6 mth f/up: Details: Arsh is a 29-year-old male with past medical history of neurofibromatosis, prior echo showing aortic insufficiency, hypertension, obesity who presents for follow-up. Today he reports he has been feeling well since his last visit in August. He has no chest discomfort, shortness of breath, heart palpitations, leg edema. He admits to being very sedentary and watches You Tube much of the day. No routine exercise. Does not check blood pressure at home. Blood pressure low today but denies lightheadedness. Mother is present and tells me he has been eating and drinking good amounts. [facility] Medical History Migraines ADHD Hypertension Surgical History History of eye surgery History of tonsillectomy and adenoidectomy History of excision of mass Family History Maternal Grandmother Hypertension Diabetes Mother Breast cancer Intellectual disability Social History Alcohol intake: never Patient Tobacco Use Status: Never used Tobacco Review of Systems Const All systems reviewed & are unremarkable except as noted in HPI and below ENT Denies dizziness Card Denies chest pain, Denies chest pain at rest, Denies chest pain with activity, Denies rapid heart rate, Denies pedal edema, Denies edema, Denies leg edema, Denies lightheadedness, Denies palpitations, Denies dyspnea, Denies dyspnea on exertion and Denies orthopnea Resp Denies cough, Denies dyspnea and Denies dyspnea on exertion GI Denies hematochezia and Denies change in stool character Musc Denies abnormal gait, Denies limited range of motion, Denies muscle cramps, Denies muscle weakness, Denies numbness, Denies radiating pain into limb, Denies stiffness and Denies tingling Neuro Denies abnormal gait, Denies dizziness, Denies numbness and Denies tingling Endo Denies palpitations Physical Exam Vital Signs: Last Vital Signs Pulse 82 02/16/25 12:58 BP 90/64 02/16/25 12:58 BMI result Body Mass Index 31.9 Const General: cooperative, healthy appearing, comfortable and no acute distress Orientation/consciousness: patient oriented x3 Neck Neck: Yes normal visual inspection Resp Effort & Inspection: normal respiratory effort Auscultation: clear to auscultation bilaterally, no crackles, no rales, no rhonchi and no wheezes Cardio Jugular venous distension: no JVD Rate: regular rate Rhythm: regular rhythm Heart sounds: S1 normal heart sound present, S2 normal heart sound present, no gallops, no murmurs and no rubs Neuro General: patient oriented x3 Extrem General: Yes normal to inspection, No no pedal edema and No calf tenderness Psych Appearance: grossly normal Mental Status: mental status grossly normal Speech and movement: Normal speech and movement present Assessment & Plan Assessment & Plan (1) Aortic insufficiency: Code(s): I35.1 - Nonrheumatic aortic (valve) insufficiency Category: Medical Plan: Prior echo reportedly showed aortic insufficiency. Last echo done 05/25/2020 showed EF 60-65%, no aortic stenosis or regurgitation. No murmur noted on examination. Will update echo prior to his next visit. Cardiology follow-up 6 months, sooner if needed. (2) Essential hypertension: Code(s): I10 - Essential (primary) hypertension Category: Medical Plan: Blood pressure goal less than 130/80. Blood pressure low today, asymptomatic. Initially 90/64 and recheck done by me 88/60. Will reduce his lisinopril to 5 mg daily. Instructed on good hydration, increase physical activity as able. Plan I discussed with the patient the need to adjust his lisinopril dosage due to low blood pressure readings observed during the visit. We talked about the importance of maintaining adequate hydration and monitoring for any symptoms of dizziness or unsteadiness. I also recommended a follow-up cardiac ultrasound to evaluate his cardiovascular status before the next visit in six months. Orders: Orders CA echo transthoracic complete 07/31/25 I10 - Essential (primary) hypertension, I35.1 - Nonrheumatic aortic (valve) insufficiency Medications: New lisinopril dose reduced 5 mg PO DAILY 30 tabs 5RF Patient Instructions: - Reduce lisinopril dose to 5 mg as prescribed. - Ensure adequate hydration throughout the day. - Monitor for symptoms such as dizziness or unsteadiness and report if they occur. - Schedule a cardiac ultrasound before the next visit in six months. Patient was informed and verbally consented to the use of an ambient scribe for clinic note documentation during this visit. Visit time spent on chart review, interview, assessment, orders, documentation. Coding Level of Care Code Est Pt Level 3 (55738) Complex EM visit Add On G2211 Diagnoses Aortic insufficiency I35.1 Essential hypertension I10 Time Spent (min) 24
--- OUTSIDE RECORDS SUMMARY | 2025-02-16 16:10 | XMS_ITS | Encounter Summary ---
Author Organization [facility] Address [address] [place] [address] Phone Care Team Providers Care Automobile Mechanic Motor Name Role Phone Unavailable Primary Care Provider Unavailabl e Encounter Details Date Type Department Care Team (Late st Contact Info) Description 09/17/2014 Documentation [facility] [address] [place] [address] Family Medicine, Physician [address] [place], [place] [phone] Social History Tobacco Use Types Packs/Day Years [...]
--- OUTSIDE RECORDS SUMMARY | 2025-02-16 16:10 | XMS_ITS | Clinical Summary ---
Author Organization [employer] Address [address] [facility] [facility] [address] [place] [address] Care Team Providers Care Peripheral Equipment Operator Name Role Phone Hank Zuleta MD [...] AND RASH 90 tablet 09/06/19 24 Active fish oil (Morgan-3) 500 MG capsuleIndication s:Hypertriglyceri demia Take 1 capsule (500 mg) by mouth with breakfast, with lunch, and with evening meal. 90 capsule 5 06/27/19 25 Active Ventolin HFA 108 (90 Base) MCG/ACT inhalerIndication s:Flu-like symptoms INHALE 2 PUFFS BY MOUTH EVERY 4 HOURS NEEDED FOR WHEEZE 18 g 1 09/12/19 25 Active lisinopril 10 MG tabletIndications :Other secondary hypertension TAKE 1 TABLET BY MOUTH EVERY DAY IN THE MORNING 90 tablet 1 12/10/19 25 Active Tirzepatide-Weigh t Management (Zepbound) 5 MG/0.5ML solution auto-injectorIndi cations:Class 1 obesity due to excess calories with serious comorbidity and body mass index (BMI) of 33.0 to 33.9 in adult Inject 0.5 mL (5 mg) under the skin every 7 (seven) days. 0.5 mL 3 01/02/20 25 Active guanFACINE (Tenex) 2 MG tabletIndications :Attention deficit hyperactivity disorder (ADHD), combined type TAKE 1 TABLET BY MOUTH EVERY DAY IN THE MORNING AND 1/2 TABLET BY MOUTH AT BEDTIME 45 tablet 6 02/07/20 25 Active guanFACINE (Tenex) 2 MG tabletIndications :Attention deficit hyperactivity disorder (ADHD), combined type TAKE 1 TABLET BY MOUTH EVERY DAY IN THE MORNING AND 1/2 TABLET BY MOUTH AT BEDTIME 45 tablet 6 06/18/19 25 025 Discontinued Active Problems Problem Noted Date Diagnosed Date Myopia of left eye 01/01/2025 Assessment & Plan (01/01/2025 1:38 PM EDT): Progressive vision loss noted, currently under ophthalmologic care in [place]. Last seen by ophthalmology in February 2024, next appointment scheduled for March 26, 2025. - Continue follow-up with ophthalmology, next appointment scheduled for March 26, 2025. Influenza A 06/05/2024 Assessment & Plan (06/05/2024 12:14 PM EST): Drink plenty of fluids and rest Acetaminophen As needed Cough syrup prescribed today Albuterol inhaler as needed Hypertriglyceridemia 12/19/2022 Assessment & Plan (01/01/2025 12:56 PM EDT): Pt here for a follow up Lab Results Component Value Date TRIG 365 (H) 06/20/2024 TRIG 272 (H) 12/14/2022 CHOL 213 (H) 06/20/2024 CHOL 205 (H) 12/14/2022 LDLCHOLCAL 103 (H) 06/20/2024 LDLCHOLCAL 116 (H) 12/14/2022 HDL 37 (L) 06/20/2024 HDL 35 (L) 12/14/2022 He is on: Fish Oil TID Plan: Counseled about diet and exercise, Repeat Lipid profile prior to next visit Assessment & Plan (06/26/2024 3:08 PM EDT): [...] calories with body mass index (BMI) of 30.0 to 30.9 in adult 06/20/2022 Assessment & Plan (01/01/2025 1:26 PM EDT): Images from the original note were not included. Patient continues to loose weight Previously I had discussed with his mother and patient the theoretical risk of Neuroendocrine tumors from GLP1s Pt has no personal or Fam Hx of Medullary thyroid cancer or MEN2, no Hx of pancreatitis either Phentermine is contraindicated given his Hx of aortic insufficiency and neurofibromatosis Pt's insurance did not want to approve medication until patient had a follow up appointment with me Plan: Continue GLP1 Patient has comorbidity of: HTN Dietary Recommendations: Fruits, vegetables, whole grains, protein [...] moderate- and vigorous-intensity activity Assessment & Plan (06/26/2024 3:34 PM EDT): [...] EST): Within normal limits 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 Assessment & Plan (01/01/2025 12:58 PM EDT): Pt here for a follow up Doing well per mother's report. Currently his condition remains unchanged I have continued to prescribe his Guanfacine 2 mg 1 tab po in AM and 1/2 tab at bedtime which have been helpful Assessment & Plan (06/26/2024 3:07 PM EDT): Pt here for a follow up used to go to [facility] and see Dr Mercedes Montalvo. Currently his condition remains unchanged I have continued to prescribe his Guanfacine 2 mg 1 tab po in AM and 1/2 tab at bedtime which have been helpful Doing well per mother's report. Assessment & Plan (06/21/2023 2:54 PM EST): Used to go to [facility] and see Dr Mercedes Montalvo. Currently his condition remains unchanged I have continued to prescribe his Guanfacine 2 mg 1 tab po in AM and 1/2 tab at bedtime which have been helpful Doing well per mother's report. The only thing they worry about is how he is not physically active. Assessment & Plan (12/19/2022 11:00 AM EDT): Used to go to [facility] and see Dr Mercedes Montalvo. Currently [...] not physically active. Other secondary hypertension 08/31/2009 Assessment & Plan (01/01/2025 12:54 PM EDT): Pt here for a f/u BP controlled Pt with secondary hypertension in the setting of Neurofibromatosis Pt is on Lisinopril 20 mg po daily,by [facility], last seen 08/27/2024 BMP Lab Results Component Value Date NA 137 06/20/2024 NA 135 12/14/2022 K 4.1 06/20/2024 K 3.9 12/14/2022 CL 105 06/20/2024 CL 102 12/14/2022 BUN 11 06/20/2024 BUN 9 12/14/2022 CREATININE 0.76 06/20/2024 CREATININE 0.75 12/14/2022 was within normal limits Pt sees Dr Maguire ([facility]) Last Renal Doppler and Abdominal MRA were unrevealing. Assessment & Plan (06/26/2024 3:10 PM EDT): Pt here for a f/u BP controlled Pt with secondary hypertension in the setting of neurofibromatosis Pt is on Lisinopril 20 mg po daily,by [facility], last seen 02/20/2024 BMP Lab Results Component Value Date NA 137 [...] is on Lisinopril 20 mg po daily,by [facility], last seen 08/13/2023 BMP 12/14/2022 was within [...] is on Lisinopril 20 mg po daily,by [facility], last seen 01/2023 BMP 12/14/2022 was within [...] is on Lisinopril 20 mg po daily,by [facility] BMP 11/09/2020 was within normal limits, will repeat Pt sees Dr Maguire and had a recent Renal Doppler and Abdominal MRA that were unrevealing. Dr. Maguire recommended pt be seen by Cardiology. Last seen on 02/09/[address] Paredes who recommended yearly ECHOs for his mild aortic insufficiency and f/u with renal Resolved Problems Problem Noted Date Diagnosed Date Resolved Date Persistent cough 06/20/2024 01/01/2025 Assessment & Plan (06/20/2024 10:21 AM EST): Patient was pressure, I advised to drink plenty of fluids and rest I prescribed for patient Tessalon Perles for cough He may continue using his albuterol inhaler 2 puffs every 6 hours as needed Encounters Date Type Department Care Team Description 02/07/2025 Telephone [facility] [place] [address] Hank Zuleta MD March02/02/2025 Refill [facility] [place] [address] Hank Zuleta MD Attention deficit hyperactivity disorder (ADHD), combined type 01/02/2025 Telephone [facility] [place] [address] Hank Zuleta MD Prior Authorization 01/01/2025 1:15 PM EDT Office Visit [facility] [place] [address] Hank Zuleta MD Other secondary hypertension (Primary Dx); Hypertriglyceridemia; Type 1 neurofibromatosis (CMS/HCC); Attention deficit hyperactivity disorder (ADHD), combined type; Class 1 obesity due to excess calories with serious comorbidity and body mass index (BMI) of 30.0 to 30.9 in adult; Myopia of left eye; Class 1 obesity due to excess calories with serious comorbidity and body mass index (BMI) of 33.0 to 33.9 in adult 01/01/2025 Telephone [facility] [place] [address] Martha Stone RN Paperwork/Forms 01/01/2025 Travel 12/31/2024 Telephone [facility] [place] [address] Hank Zuleta MD chart prep 12/25/2024 Patient Outreach [facility] [place] [address] Hank Zuleta MD Pre-visit Planning (SDOH screening completed on 06/26/24) 12/18/2024 Refill [facility] [place] [address] Hank Zuleta MD Class 1 obesity due to excess calories with serious comorbidity and body mass index (BMI) of 33.0 to 33.9 in adult 12/09/2024 Telephone [facility] [place] [address] Hank Zuleta MD Prior Authorization 12/08/2024 Refill [facility] [address] [place] [address] Hank Zuleta MD Other secondary hypertension from Last 3 Months Immunizations Immunization Administration [...] Moderna Covid-19 Vaccine 12+ 03/09/2021,07/14/19 21,06/15/2020 Novel [id number], all formulations 02/12/2009 Tdap 06/22/2009 Varicella 11/10/2002,06/29/2000 Social History Tobacco Use Types Packs/Day Years Used Date Smoking Tobacco: Never Passive Smoke Exposure: Never Smokeless Tobacco: Never Tobacco Cessation:Counseling Given: Not Answered Alcohol Use Standard Drinks/Week Comments Never 0 (1 standard drink = 0.6 oz pur e alcohol) Depression Answer Date Recorded Patient Health Questionnaire-9 [...] Sign Reading Time Taken Comments Blood Pressure 100/60 01/01/2025 1:11 PM EDT Pulse 66 01/01/2025 1:11 PM EDT Temperature 36.3 C (97.4 F) 01/01/2025 1:11 PM EDT Respiratory Rate 20 01/01/2025 1:11 PM EDT Oxygen Saturation 98% 01/01/2025 1:11 PM EDT Inhaled Oxygen Concentration - - Weight 81 kg (178 lb 9.6 oz) 01/01/2025 1:11 PM EDT Height 162.6 cm (5' 4 ) 01/01/2025 1:11 PM EDT Body Mass Index 30.66 01/01/2025 1:11 PM EDT Plan of Treatment Upcoming Encounters Date Type Department Care Team (Late st Contact Info) Description 04/23/2025 2:15 PM EST Office Visit [facility] [address] [place] [address] Hank Zuleta MD [address] [place] [address] Health Maintenance Due Date Last Done Comments HIV Screening 1996 Family Planning (PISQ) 11/28/2011 Hepatitis C Screening 2014 Pneumococcal Vaccine: Pediatrics (0 to 5 Years) and At-Risk Patients (6 to 49) Years (1 of 2 - PCV) 11/28/2015 DTaP/Tdap/Td Vaccines (7 - Td or Tdap) 06/23/2019 06/22/2009, 12/14/2000, 05/06/1999, Additional history exists Influenza Vaccine (#1) 2024 , 04/22/2019, 06/25/2018, Additional history exists Depression Screening 01/16/2025 01/17/2024, 01/17/20 24 Alcohol/Substance Use Screening 06/26/2025 06/26/2024 SDOH Screening 06/26/2025 06/26/2024 Disability Screening 01/01/2026 01/01/2025 Tobacco Screening 01/01/2026 01/01/2025 Lipid Panel 06/20/2029 06/20/2024, 12/14/2022 Zoster Vaccines [...] Completed 01/09/2024, , 07/13/2020, Additional history exists Meningococcal B Vaccine Aged Out No l onger eligible based on patient's age to complete this topic RSV under 20 months Aged Out No longe r eligible based on patient's age to complete this topic Rotavirus Vaccines Aged Out No longer eligible based on patient's age to complete this topic Procedures Procedure Name Priority Date/Time Associated Diagnosis Comments LIPID PANEL, STANDARD Routine 06/20/2024 9:32 AM EST Hypertriglyceridemi a from Last 3 Months or Most Recently Relevant to Health Maintenance Results * (ABNORMAL) Lipid Panel, Standard (06/20/2024 9:32 AM EST) Triglycerides 365(H) <150 mg/dL [facility] Comment:Desirable Triglyceri de: less than 150 mg/dLBorderline High Triglyceride 150-199 mg/dLHigh Triglyceride: 200-499 mg/dLVery High Triglyceride: greater than or equal to 5OO mg/dL Cholesterol 213(H) <200 mg/dL [facility] Comment:Desirable Cholestero l: less than 200 mg/dLBorderline High Cholesterol: 200-239 mg/dLHigh Cholesterol: greater than 239 mg/dL LDL Cholesterol Calculated 103(H) <100 mg/dL [facility] Comment:Desirable LDL: less than 100 mg/dLNear Optimal/Above Optimal LDL: 110- 129 mg/dLBorderline High LDL: 130-159 mg/dLHigh LDL: 160-189 mg/dLVery High LDL: greater than or equal to 190 mg/dL HDL Cholesterol 37(L) >40 mg/dL [facility] Comment:Desirable HDL: great er than 40 mg/dL Note: This HDL assay may give artificially low results in patients with liver disease. Blood Venous blood specimen / Unknown 06/20/2024 9:32 AM EST 06/20/2024 11:30 AM EST Hank Lee MD LAB BLOOD ORDERABLES Final Result Performing Organization Address City/State/[facility] Co de Phone Number [facility] [address] [place] [address] [phone] from Last 3 Months or Most Recently Relevant to Health Maintenance Insurance [employer] C3 Care Teams Peripheral Equipment Operator Relationship Specialty Start Date End Date Hank Zuleta MD [address] [place] [address] [place] [address] PCP - General Internal Medicine 06/25/18
--- OUTSIDE RECORDS SUMMARY | 2025-02-16 16:10 | XMS_ITS | Encounter Summary ---
Author Organization [facility] Address [address] [place] [phone] Phone Care Team Providers Care Neon Installer Name Role Phone Unavailable Primary Care Provider Unavailabl e Encounter Details Date Type Department Care Team (Late st Contact Info) Description 12/24/2015 Documentation [facility] [address] [place] [address] Family Medicine, Physician [address] [place], [place] [phone] Social History Tobacco Use Types Packs/Day Years [...]
--- OUTSIDE RECORDS SUMMARY | 2025-02-16 16:11 | XMS_ITS | Encounter Summary ---
Author Organization [facility] Address [address] [place] [phone] Phone Care Team Providers Care Battery Checker Name Role Phone Unavailable Primary Care Provider Unavailabl e Encounter Details Date Type Department Care Team (Late st Contact Info) Description 08/15/2016 Documentation [facility] [address] [place] [address] Family Medicine, Physician [address] [place], [place] [phone] Social History Tobacco Use Types Packs/Day Years [...]
--- OUTSIDE RECORDS SUMMARY | 2025-02-16 16:11 | XMS_ITS | Encounter Summary ---
Author Organization [facility] Address [address] [place] [phone] Phone Care Team Providers Care Fuel Efficient Aircraft Designer Name Role Phone Unavailable Primary Care Provider Unavailabl e Encounter Details Date Type Department Care Team (Late st Contact Info) Description 08/29/2016 Documentation [facility] [address] [place] [address] Family Medicine, Physician [address] [place], [place] [phone] Social History Tobacco Use Types Packs/Day Years [...]
--- OUTSIDE RECORDS SUMMARY | 2025-02-16 16:11 | XMS_ITS | Encounter Summary ---
Author Organization [facility] Address [address] [place] [address] Phone Care Team Providers Care Motor Vehicle Operator Road Supervisor Name Role Phone Unavailable Primary Care Provider Unavailabl e Encounter Details Date Type Department Care Team (Late st Contact Info) Description 11/30/2016 Conversion Encounter [facility] - [address] [address] Social History Tobacco Use Types Packs/Day Years [...]
--- OUTSIDE RECORDS SUMMARY | 2025-02-16 16:11 | XMS_ITS | Encounter Summary ---
Author Organization [facility] Address [address] [place] [phone] Phone Care Team Providers Care Glue Wheel Operator Name Role Phone Unavailable Primary Care Provider Unavailabl e Encounter Details Date Type Department Care Team (Late st Contact Info) Description 07/31/2016 Documentation [facility] [address] [place] [address] Family Medicine, Physician [address] [place], [place] [phone] Social History Tobacco Use Types Packs/Day Years [...]
--- OUTSIDE RECORDS SUMMARY | 2025-02-16 16:12 | XMS_ITS | Clinical Summary ---
Author Organization [facility] Address [address] [place] [phone] Phone Care Team Providers Care Credit Front Office Developer Name Role Phone Hank Levy MD Primary Care Provide r Allergies No known active allergies Medications guanFACINE (TENEX) 1 MG tablet Take 2 mg by mouth nightly. Active atenolol (TENORMIN) 25 MG tablet Take 25 mg by mouth daily. Active nortriptyline (PAMELOR) 10 MG capsule Take 10 mg by mouth nightly at bedtime. Active albuterol 2.5 mg /3 mL (0.083 %) nebulizer solution Take 2.5 mg by nebulization every 6 (six) hours as needed. Active lisinopril (PRINIVIL,ZESTR IL) 10 MG tablet 8 Active prednisoLONE acetate (PRED FORTE) 1 % ophthalmic suspension Sig: Place one drop in the right eye four times a day for one week, then decrease to once a day for three weeks. Start day of procedure. 5 mL 4 2 Active Additional Information Patient not taking.Reported on 03/31/2022 oxyCODONE-aceta minophen (PERCOCET) 5-325 mg per tablet Take 1 tablet by mouth every 4 (four) hours as needed for pain (specific location in comments). Partial fill upon patient request. 5 tablet 2 Active moxifloxacin (VIGAMOX) 0.5 % ophthalmic solution PLACE 1 DROP INTO THE RIGHT EYE 4 (FOUR) TIMES A DAY. START DAY BEFORE PROCEDURE. 3 mL 1 2 Active Additional Information Patient not taking.Reported on 03/31/2022 moxifloxacin (VIGAMOX) 0.5 % ophthalmic solution Place 1 drop into the left eye 4 (four) times a day. Start day before procedure. 3 mL 1 2 Active Additional Information Patient not taking.Reported on 03/31/2022 prednisoLONE acetate (PRED FORTE) 1 % ophthalmic suspension Sig: Place one drop in the left eye four times a day for one week, then decrease to once a day for three weeks. Start day of procedure. 5 mL 4 2 Active ALPRAZolam (XANAX) 0.25 MG tablet Take 1 tablet (0.25 mg total) by mouth as needed. Bring medication to office day of procedure. Do not take until instructed to. 1 tablet 2 Active oxyCODONE-aceta minophen (PERCOCET) 5-325 mg per tablet Take 1 tablet by mouth every 4 (four) hours as needed for pain (specific location in comments). Partial fill upon patient request. 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 Not on dieudonne e 08/11/2022 Are you concerned about learning? Not on file 08/11/2022 No 08/11/2022 No 08/11/2022 Digital Access Answer Date Recorded No 09/09/2022 No 09/09/2022 No 09/09/2022 Reliable internet access at home? Not on file 09/09/2022 Device with a working camera? Not on file Sex and Gender Information Value Date Recorded Sex Assigned at Not on file Legal Sex Male 4:13 PM EDT Gender Identity Not on file Sexual Orientation Not on file Plan of Treatment Health Maintenance Due Date Last Done Comments BLOOD PRESSURE 1996 CREATININE LEVEL 1996 POTASSIUM LEVEL 1996 DEPRESSION SCREENING 2008 HEPATITIS C SCREENING 2014 HIV ONE-TIME SCREENING (18-65 YEARS) 2014 Adult Td,Tdap Booster 06/23/2019 06/22/2009 INFLUENZA VACCINE (#1) 2024 7, 01/03/2016, 02/02/2015, Additional history exists COVID-19 VACCINE (2024- season) 2024 07/13/2020, 06/15/2020 HIB VACCINES Completed 04/17/1999, 07/16, 05/01/1997, Additional history exists HEPATITIS A VACCINES Completed 11/19/2014, 11/08/19 14 MENINGOCOCCAL VACCINES (ACWY) Completed 11/19/2014, 06/22/2009 SMOKING STATUS SCREENING (Once After 26 Yrs) Completed 03/31/2022 MENINGOCOCCAL VACCINES (B) Aged Out N o longer eligible based on patient's age to complete this topic PNEUMOCOCCAL VACCINES (0-49 years) Aged Out No longer eligible based on patient's age to complete this topic Medical Devices Not on file Insurance [facility] C3 A[employer] [facility] C3 ACO C3 ACO C3 ACO C3 ACO [facility] C3 ACO [facility] C3 ACO [facility] C3 ACO [facility] C3 ACO [facility] C3 ACO Care Teams Credit Front Office Developer Relationship Specialty Start Date End Date Hank Levy MD [address] [place] [address] [address] [place] [phone] [email or web address] PCP - General Internal Medicine 08/16/21 Additional Source Comments The information contained in this document represents components of the legal health record. It is not the complete legal health record.[facility]
--- OUTSIDE RECORDS SUMMARY | 2025-02-16 16:12 | XMS_ITS | Clinical Summary ---
Author Organization [facility] Address [address] [place] [phone] Phone Care Team Providers Care Security Attendant Name Role Phone Unavailable Primary Care Provider [...] Developmental delay Other Family history of Sudden /ME under age 55, No family history of *CVA/Stroke, Family history of *Dental caries, No family history of *Sudden /ME under 55, No family history of *Heart [...] 74 2017 3:09 PM EDT Temperature 24.4 C (76 F) 09/06/2017 5:01 PM EDT Respiratory Rate - [...] 05/06/1999, Additional history exists Influenza Vaccines (#1) 2024 03/23/20 17, 01/03/2016, 02/02/2015, Additional history exists COVID-19 Vaccine ( season) 2024 Hepatitis B Vaccines Completed 08/12/1997, 05/01/1997, 02/20/1997 [...] patient's age to complete this topic Insurance [facility] NON PCC
--- OUTSIDE RECORDS SUMMARY | 2025-02-16 16:12 | XMS_ITS | Encounter Summary ---
Author Organization [facility] Address [address] [place] [address] Phone Care Team Providers Care Barge Pilot Name Role Phone Unavailable Primary Care Provider Unavailabl e Reason for Visit * Reason Comments Med Refill Encounter Details Date Type Department Care Team (Late st Contact Info) Description 10/22/2018 Refill [facility] - [address] [address] Mercedes Montalvo MD ADHD (attention deficit hyperactivity [...]
--- OUTSIDE RECORDS SUMMARY | 2025-02-16 16:12 | XMS_ITS | Encounter Summary ---
Author Organization [facility] Address [address] [place] [address] Phone Care Team Providers Care Bounty Trapper Name Role Phone Unavailable Primary Care Provider Unavailabl e Reason for Visit * Reason Comments Med Refill Encounter Details Date Type Department Care Team (Late st Contact Info) Description 01/31/2018 Refill [facility] - [address] [address] Mercedes Montalvo MD Mild intermittent asthma without [...]
--- OUTSIDE RECORDS SUMMARY | 2025-02-16 16:13 | XMS_ITS | Clinical Summary ---
Author Organization [facility] Address [address] [place] [address], [place] [address] Care Team Providers Care Toll Line Inspector Name Role Phone Hank Landa MD Primary [...] of 2 - PCV) 11/28/2015 Influenza Vaccine (#1) 2024 7, 01/03/2016, 02/02/2015, Additional history exists Hepatitis B Vaccine Completed 08/12/1997, 05/01/1997, 02/20/1997 Insurance Medicaid [place] Medicaid [place] Care Teams Toll Line Inspector Relationship Specialty Start Date End Date Hank Landa MD PCP - General 04/26/20
--- OUTSIDE RECORDS SUMMARY | 2025-02-16 16:13 | XMS_ITS | Encounter Summary ---
Author Organization [facility] Address [address] [facility] [address] [place] [address] Care Team Providers Care Fluoroscope Operator Name Role Phone Hank Zuleta MD Primary Care Provide r Encounter Details Date Type Department Care Team (Late st Contact Info) Description 2022 Telephone [facility] [address] [place] [address] [phone] Hank Zuleta MD [address] [place] [address] [phone] Social History Tobacco Use Types Packs/Day Years [...] Description 04/23/2025 2:15 PM EST Office Visit [facility] [address] [place] [address] [phone] Hank Zuleta MD [address] [place] [address] [phone] documented as of this encounter Visit Diagnoses Not on filedocumented in this encounter Additional Health Concerns Assessment Noted Time PHQ-9 Depression Total Score: 0 06/21/19 23 9:56 AM EST documented as of this encounter Care Teams Fluoroscope Operator Relationship Specialty Start Date End Date Hank Zuleta MD [address] [place] [address] PCP - General Internal Medicine 06/25/18 documented as of this encounter
--- OUTSIDE RECORDS SUMMARY | 2025-02-16 16:13 | XMS_ITS | Encounter Summary ---
Author Organization [facility] Address [address] [facility] [address]t [place] [address] Care Team Providers Care Social Studies Teacher Name Role Phone Hank Zuleta MD Primary Care Provide r Reason for Visit * Reason Comments Med Refill Encounter Details Date Type Department Care Team ([place] [facility] st Contact Info) Description 04/10/2023 Refill [facility] [address] [place], [place] [phone] Hank Zuleta MD [address] [place], [place] [phone] Attention deficit hyperactivity disorder (ADHD), combined type [...] Description 04/23/2025 2:15 PM EST Office Visit [facility] [address] [place] [address] Hank Zuleta MD [address] [place] [address] documented as of this encounter Visit Diagnoses Diagnosis Attention deficit hyperactivity disorder (ADHD), combined type documented in this encounter Additional Health Concerns Assessment Noted Time PHQ-9 Depression Total Score: 0 06/21/19 23 9:56 AM EST documented as of this encounter Care Teams Social Studies Teacher Relationship Specialty Start Date End Date Hank Zuleta MD [address] [place] [address] PCP - General Internal Medicine 06/25/18 documented as of this encounter
--- OUTSIDE RECORDS SUMMARY | 2025-02-16 16:13 | XMS_ITS | Encounter Summary ---
Author Organization [facility] Address [address] [place] [address] Phone Care Team Providers Care Technical Fellow Name Role Phone Unavailable Primary Care Provider Unavailabl e Encounter Details Date Type Department Care Team (Late st Contact Info) Description 07/30/2012 Documentation [facility] [address] [place] [address] Family Medicine, Physician [address] [place], [place] [phone] Social History Tobacco Use Types Packs/Day Years [...]
--- OUTSIDE RECORDS SUMMARY | 2025-02-16 16:13 | XMS_ITS | Encounter Summary ---
Author Organization [facility] Address [address] [place] [address] Phone Care Team Providers Care Video Game Creator Name Role Phone Unavailable Primary Care Provider Unavailabl e Encounter Details Date Type Department Care Team (Late st Contact Info) Description 08/21/2012 Documentation [facility] [address] [place] [address] Family Medicine, Physician [address] [place], [place] [phone] Social History Tobacco Use Types Packs/Day Years [...]
--- OUTSIDE RECORDS SUMMARY | 2025-02-16 16:13 | XMS_ITS | Encounter Summary ---
Author Organization [facility] Address [address] [place] [phone] Phone Care Team Providers Care Backshoe Person Name Role Phone Unavailable Primary Care Provider Unavailabl e Encounter Details Date Type Department Care Team (Late st Contact Info) Description 05/02/2012 Documentation [facility] [address] [place] [address] Family Medicine, Physician [address] [place], [place] [phone] Social History Tobacco Use Types Packs/Day Years [...]
--- OUTSIDE RECORDS SUMMARY | 2025-02-16 16:14 | XMS_ITS | Encounter Summary ---
Author Organization [facility] Address [address] [facility] 7[address] [place] [address] Care Team Providers Care Imitation Marble Mechanic Name Role Phone Hank Zuleta MD Primary Care Provide r Reason for Visit * Reason Onset Date Comments callback requested 03/03/2024 Encounter Details Date Type Department Care Team ([facility] st Contact Info) Description 03/03/2024 Telephone [facility] [address] [place], [place] [phone] Hank Zuleta MD [address] [place], [place] [phone] callback requested Social History Tobacco Use Types [...] different options depend on what PCP says grandpaulette states she will like a referral for Pt1 Callback number [phone] documented in this encounter Plan of Treatment Upcoming Encounters Date Type Department Care Team (Late st Contact Info) Description 04/23/2025 2:15 PM EST Office Visit [facility] [address] [place] [address] Hank Zuleta MD [address] [place] [address] documented as of this encounter Visit Diagnoses Not on filedocumented in this encounter Additional Health Concerns Assessment Noted Time PHQ-9 Depression Total Score: 0 01/17/20 24 2:09 PM EDT documented as of this encounter Care Teams Imitation Marble Mechanic Relationship Specialty Start Date End Date Hank Zuleta MD [address] [place] [address] PCP - General Internal Medicine 06/25/18 documented as of this encounter
== END 2025-02-16 13:21 | disposition home or self-care (01) ==
LOC: HO.HCS 12:47
PROVIDERS: PCP Internal Medicine; Visit Provider Nurse Practitioner Family
DX: I35.1 Nonrheumatic aortic (valve) insufficiency (principal); I10 Essential (primary) hypertension
CPT/HCPCS: 99213

== ENCOUNTER → 2025-02-16 12:46 | Outpatient (BNVA) | payer MEDICAID, SELFPAY | PROVIDERS: PCP Internal Medicine; Visit Provider Nurse Practitioner Family | DX: I35.1 Nonrheumatic aortic (valve) insufficiency (principal); I10 Essential (primary) hypertension | CPT/HCPCS: 99212 ==